=== PATIENT | female | born 1955 | race Caucasian/White ===

== ENCOUNTER 2020-08-25 15:11 | Emergency (ER) | payer OTHER, SELFPAY ==
[2020-08-25 16:02] VITALS: BP 111/67; PULSE 65; RESP 18; TEMP 36.7; O2SAT 100; BMI 20.9
--- NOTE | 2020-08-25 16:31 | ED.NAVMDI ---
HPI - Nausea/Vomiting/Diarrhea General Chief complaint: Nausea/Vomiting/Diarrhea Stated complaint: dirrhea Time Seen by Provider: 08/25/20 16:16 Source: patient Mode of arrival: ambulatory Limitations: no limitations History of Present Illness HPI Narrative: Patient comes to the emergency room complaining of diarrhea for 5 weeks. Patient states on July 12 she had a left foot surgery and put on antibiotics, and soon after she developed diarrhea. She told her testing machine operator Dr. López about this, she was given a prescription for oral vancomycin. Patient states that she continues having diarrhea, up to 5 bowel movements of watery diarrhea per day, no vomiting. Patient states all her symptoms are worse at night. Patient denies having any solid bowel movements for the last 5 weeks. Patient complaining of mild abdominal discomfort and occasional cramping, no pain. Patient states that she has been in touch with Dr. López, per patient, she was instructed to come to the emergency room for evaluation and to get admitted. Patient states that they need to repeat a colonoscopy. Patient had a colonoscopy approximately 6 months ago which was inconclusive due to cough is fecal material in the colon, then she was told that she needed a 2nd colonoscopy towards the the middle of August. MD elicited complaint: nausea and diarrhea Related Data Previous Rx's Medication Instructions Recorded vancomycin 125 mg capsule 125 mg PO QID 10 Days #40 cap 08/10/20 loperamide 1 mg/7.5 mL oral liquid 1 mg PO Q2-4H PRN #120 ml 08/15/20 loperamide 2 mg PO Q4H PRN #30 cap 08/25/20 Allergies Allergy/AdvReac Type Severity Reaction Status Date / Time sumatriptan [From IMITREX] Allergy Unknown MAKES Unverified 05/25/20 15:57 MIGRAINES WORSE Review of Systems Review of Systems: Constitutional : No Weight loss, No Fever, No Chills, No Night Sweats, No Fatigue, No Malaise ENT/Mouth : No Hearing loss, No Ear Pain, No Nasal Congestion, No Sinus Pain, No Hoarseness, No sore throat, No Rhinorrhea, No Swallowing Difficulty Eyes: No Eye Pain, No Swelling, No Redness, No Foreign Body, No Discharge, No Vision Changes Cardiovascular : No Chest Pain, No SOB, No Dyspnea on Exertion, No Orthopnea, No Edema, No Palpitations Respiratory : No Cough, No Sputum, No Wheezing, No Smoke Exposure, No Dyspnea Gastrointestinal : Complaining of mild nausea with no vomiting, 5 weeks of diarrhea No Constipation, No abdominal Pain other than occasional cramping, No Hematochezia, No Melena Genitourinary : no irregular bleeding, No Dysuria, No Urinary Frequency, No Hematuria, No Urinary Incontinence, No Urgency, No Flank Pain, No Urinary Flow Changes, No Hesitancy Musculoskeletal : No joint pain, No Myalgias, No Joint Swelling Skin : No Skin Lesions, No rash, healing surgery in left foot Neuro : No Weakness, No Numbness, No Paresthesias, No Loss of Consciousness, No Dizziness, No Headache Psych : No Anxiety/Panic, No Depression, No SI/HI/AH/VH, No Social Issues, Heme/Lymph: No Bruising, No Bleeding,No Lymphadenopathy Endocrine : No Polyuria, No Polydipsia, No Temperature Intolerance [facility] Past Medical History Medical History (Updated 08/25/20 @ 20:39 by Linh Padron MD) Borderline personality disorder Depression Diverticulitis Opiate abuse, continuous Surgical History (Updated 08/25/20 @ 16:36 by Linh Padron MD) H/O hemorrhoidectomy Status post left foot surgery Social History Social History Alcohol intake: never Smoking Status: Never smoker Use of substances other than those prescribed or required for medical reasons: No Advance Directives: No Advance Directives Information Provided: No Physical Exam Vital Signs: Vital Signs: Last Vital Signs Temp 97.9 F 08/25/20 20:16 Pulse 68 08/25/20 20:16 Resp 18 08/25/20 20:16 BP 131/58 L 08/25/20 20:16 Pulse Ox 98 08/25/20 20:16 Body Mass Index 20.9 Appearance: Alert. Oriented X3. No acute distress. Eyes: Pupils equal, round and reactive to light. ENT: Pharynx normal. Neck: Normal inspection. Neck supple. No lymph nodes noted. No crepitus CVS: Normal heart rate and rhythm. Pulses normal. Normal S1 and S2 Respiratory: No respiratory distress. Breath sounds normal. No Wheezing. No rales Abdomen: Soft and nontender. No rigidity. No distention. good BS x4 Skin: Skin warm and dry. Normal skin color. Normal skin turgor. Extremities: Left foot in [place] Neuro: Oriented X 3. No motor deficit. No sensory deficit. Moving all extermities. No slurred speech. Course Course Course Narrative: Patient has not had any bowel movements since she has been here and we were unable to collect stool samples for laboratory workup, patient not complaining of abdominal pain. I spoke with Dr. López regarding the patient and her labs, seems that the patient was sent here because the patient inform the gastroenterology office that she was having dizziness. Patient denies any symptoms of dizziness, lightheadedness. Patient's orthostatics were negative. Patient received 2 L of normal saline. Discussed with the patient to follow up with her PCP and testing machine operator on Friday. Dr. López recommends that the patient doubles her Imodium dose MDM - Nausea/Vomiting/Diarrhea Lab Data Result diagrams: 08/25/20 16:51 08/25/20 16:51 Labs: Lab Results 08/25/20 08/25/20 08/25/20 Range/Units 16:51 16:51 19:58 WBC 7.9 (4.8-10.8) X10*3/uL RBC 3.33 L (4.20-5.50) X10*6/uL Hgb 11.3 L (12.0-16.0) g/dl Hct 33.8 L (37-47) % MCV 101.5 H (80-98) fL MCH 33.9 H (27.0-33.0) pg MCHC 33.4 (31.0-35.0) g/dl RDW 11.8 (11.0-16.0) % Plt Count 207 (160-400) X10*3/uL MPV 9.5 (9.4-12.3) fL Immature Gran % (Auto) 0.3 (0.0-0.4) % Neut % (Auto) 57.3 (45-73) % Lymph % (Auto) 33.1 (20-40) % [place] % (Auto) 7.6 (2-11) % Eos % (Auto) 1.3 (0-4) % Baso % (Auto) 0.4 (0-2) % Lymph # (Auto) 2.6 (1.2-4.9) X10*3/uL [place] # (Auto) 0.6 (0.1-1.2) X10*3/uL Eos # (Auto) 0.1 (0.0-0.4) X10*3/uL Baso # (Auto) 0.0 (0.0-0.2) X10*3/uL Abs Immat Gran (auto) 0.02 (0.00-0.03) X10*3/uL Absolute Neuts (auto) 4.6 (2.0-8.3) X10*3/uL Absolute Nucleated RBC 0.000 (0.0-0.012) X10*3/uL Nucleated RBC % (auto) 0.0 (0.0-0.2) /100WBC Sodium 141 (135-145) mmol/L Potassium 4.4 (3.3-5.1) mmol/l Chloride 105 (96-108) mmol/L Carbon Dioxide 33 H (22-29) mmol/L Anion Gap 7 L (12-20) BUN 12 (9-16) mg/dL Creatinine 0.67 (0.5-1.4) mg/dL Estim Creat Clear Calc 81.0 Estimated GFR > 60 Random Glucose 93 (60-115) mg/dL Calcium 8.9 (8.4-10.2) mg/dL Total Bilirubin 0.2 (0.0-1.0) mg/dL Direct Bilirubin < 0.2 (0.0-0.5) mg/dL AST 14 (5-31) U/L ALT 6 (0-31) U/L Alkaline Phosphatase 51 (39-117) U/L Total Protein 5.4 L (6.5-8.0) g/dL Albumin 3.6 (3.5-5.0) g/dL Lipase 14 (8-78) U/L Urine Color YELLOW Urine Appearance CLEAR Urine pH 5.5 (5.0-8.0) Ur Specific [place] 1.025 (1.005-1.025) Urine Protein NEG (NEG-TRACE) MG/DL Urine Glucose (UA) NEG (NEG) MG/DL Urine Ketones NEG (NEG) MG/DL Urine Blood NEG (NEG) Urine Nitrite NEG (NEG) Ur Leukocyte Esterase NEG (NEG) Discharge Plan Discharge Clinical Impression: Diarrhea Qualifiers: Diarrhea type: unspecified type Qualified Code(s): R19.7 - Diarrhea, unspecified Patient Disposition: Home, Self-Care Instructions: Chronic Diarrhea (ED) Additional Instructions: Please follow-up with Dr. López on Friday. Please follow-up with your primary care physician tomorrow. If you have any worsening or new symptoms, please return to the emergency room or call 911 Prescriptions: New loperamide 2 mg capsule 2 mg PO Q4H PRN (Reason: loose stool) Qty: 30 RF: 0 No Action vancomycin 125 mg capsule 125 mg PO QID 10 Days Qty: 40 RF: 0 loperamide 1 mg/7.5 mL liquid 1 mg PO Q2-4H PRN (Reason: loose stool) Qty: 120 RF: 0
[2020-08-25] MEDS: 0.9 % Sodium Chloride 1,000 ML 999 ML IVCONT (16:51)
[2020-08-25 16:56] LABS: MANUAL DIFF FLAG NO
[2020-08-25 16:57] LABS: Basophils Percent Auto 0.4 % (0-2); Eosinophils Absolute Auto 0.1 X10*3/uL (0.0-0.4); Eosinophils Percent Auto 1.3 % (0-4); Hematocrit 33.8 % (37-47); Hemoglobin 11.3 g/dl (12.0-16.0); Imm Gran Abs Auto 0.02 X10*3/uL (0.00-0.03); Imm Gran Pct Auto 0.3 % (0.0-0.4); Lymphocytes Absolute Auto 2.6 X10*3/uL (1.2-4.9); Lymphocytes Percent Auto 33.1 % (20-40); Mean Corpuscular HGB Conc 33.4 g/dl (31.0-35.0); Mean Corpuscular Hemoglobin 33.9 pg (27.0-33.0); Mean Corpuscular Volume 101.5 fL (80-98); Mean Platelet Volume 9.5 fL (9.4-12.3); Monocytes Absolute Auto 0.6 X10*3/uL (0.1-1.2); Monocytes Percent Auto 7.6 % (2-11); Neutrophils Absolute Auto 4.6 X10*3/uL (2.0-8.3); Neutrophils Percent Auto 57.3 % (45-73); Platelet Count 207 X10*3/uL (160-400); Red Blood Count 3.33 X10*6/uL (4.20-5.50); Red Cell Distribution Width 11.8 % (11.0-16.0); White Blood Count 7.9 X10*3/uL (4.8-10.8)
[2020-08-25] MEDS: Morphine Sulfate Immed Release 15 MG TABLET PO (17:03)
[2020-08-25 17:29] LABS: Alanine Aminotransferase 6 U/L (0-31); Albumin Level 3.6 g/dL (3.5-5.0); Alkaline Phosphatase 51 U/L (39-117); Anion Gap 7 (12-20); Aspartate Amino Transferase 14 U/L (5-31); Bilirubin Direct < 0.2 mg/dL (0.0-0.5); Bilirubin Total 0.2 mg/dL (0.0-1.0); Blood Urea Nitrogen 12 mg/dL (9-16); Calcium 8.9 mg/dL (8.4-10.2); Carbon Dioxide 33 mmol/L (22-29); Chloride 105 mmol/L (96-108); Estimated Glomerular Filt Rate > 60; Glucose Random 93 mg/dL (60-115); Lipase 14 U/L (8-78); Potassium 4.4 mmol/l (3.3-5.1); Sodium 141 mmol/L (135-145); Total Protein 5.4 g/dL (6.5-8.0)
[2020-08-25] MEDS: 0.9 % Sodium Chloride 1,000 ML 999 ML IV (18:35)
[2020-08-25 20:09] VITALS: BP 131/58; PULSE 67
[2020-08-25 20:10] VITALS: BP 141/71; PULSE 80
[2020-08-25 20:11] LABS: Glucose Urine UA NEG (NEG); Leukocyte Esterase Urine NEG (NEG); Nitrite Urine NEG (NEG); PH 5.5 (5.0-8.0); Specific Gravity - Urine 1.025 (1.005-1.025); Urine Blood NEG (NEG); Urine Ketones NEG (NEG); Urine Protein NEG (NEG-TRACE)
[2020-08-25 20:14] LABS: Appearance Urine CLEAR; Color Urine YELLOW
[2020-08-25 20:16] VITALS: BP 131/58; PULSE 68; RESP 18; TEMP 36.6; O2SAT 98
--- NOTE | 2020-08-25 20:36 | PC.NURSE ---
PT ABLE TO AMBULATED TO BATHROOM WITH LIMPING GAIT, STS HAS BEEN USING WALKER AT HOME. PT CONCERNED ABOUT ONGOING DIARRHEA , BUT WHEN THIS RN ASKED IF PATIENT ABLE TO PROVIDE STOOL SAMPLE FOR ANALYSIS SHE STATED WELL I JUST ATE SO I WONT BE ABLE TO HAVE A BM UNTIL TOMORROW NOW , PROVIDER AWARE OF PT STATEMENTS.
== END 2020-08-25 21:06 | disposition home or self-care (01) ==
PROVIDERS: Emergency Provider Emergency Medicine; PCP Family Medicine
DX: R19.7 Diarrhea, unspecified (principal); F11.10 Opioid abuse, uncomplicated; F60.3 Borderline personality disorder
CPT/HCPCS: 36415; 80048; 80076; 81003; 83690; 85025; 96360; 96361; 99284

== ENCOUNTER 2020-08-31 08:25 | Day surgery (SDC) | payer OTHER, SELFPAY ==
--- NOTE | 2020-08-30 08:31 | P.CONAN_ITS ---
Documented by User: Edwige Elyse 08/30/20 08:35 HPI - Anesthesia Eval Consult details Narrative: 64yo F for Upper Endoscopy and Colonoscopy [facility] Past Medical History Medical History Borderline personality disorder Depression Diverticulitis Opiate abuse, continuous Surgical History Surgical History H/O hemorrhoidectomy Status post left foot surgery Social History Social History Alcohol intake: never Smoking Status: Current every day smoker Second Hand Smoke Exposure: No Use of substances other than those prescribed or required for medical reasons: No Advance Directives: No Advance Directives Information Provided: No Advance Directives on File: No Meds Allergies Allergy/AdvReac Type Severity Reaction Status Date / Time sumatriptan [From IMITREX] Allergy Unknown MAKES Unverified 05/25/20 15:57 MIGRAINES WORSE Exam Exam Date and Time: August 30, 2020830 Pertinent Lab Results Pertinent Lab Results: Laboratory Tests 08/25/20 08/25/20 16:51 16:51 WBC 7.9 Hgb 11.3 L Hct 33.8 L Plt Count 207 Sodium 141 Potassium 4.4 Chloride 105 Carbon Dioxide 33 H BUN 12 Creatinine 0.67 Assessment and Plan Assessment Anesthesia Assessment: Chart Reviewed Documented by User: Andrey Gaston MD 08/31/20 08:53 [facility] Past Medical History Medical History Borderline personality disorder Depression Diverticulitis Opiate abuse, continuous Surgical History Surgical History H/O hemorrhoidectomy Status post left foot surgery Social History Social History Alcohol intake: never Smoking Status: Current every day smoker Second Hand Smoke Exposure: No Use of substances other than those prescribed or required for medical reasons: No Advance Directives: No Advance Directives Information Provided: No Advance Directives on File: No Meds Allergies Allergy/AdvReac Type Severity Reaction Status Date / Time sumatriptan [From IMITREX] Allergy Unknown MAKES Unverified 05/25/20 15:57 MIGRAINES WORSE Assessment and Plan Assessment Anesthesia Assessment: Anesthesia Plan Discussed, Smoking Cess. Discussed and Chart Reviewed Final Anesthetic Review NPO: Yes ASA Class: II Final Preanesthetic Review: No Changes in Pt Med Stat, Meds/Allgs Chart Reviewed, Consent Obtained/Reviewed and Anes Risks/Benef Reviewed Patient Risk: Intermediate Procedure Risk: Low Anesthetic Plan Anesthetic Plan: MAC: Disposition: Standard PACU
[2020-08-30 09:00] VITALS: BMI 20.5
[2020-08-31 08:33] VITALS: BP 133/55; PULSE 89; RESP 16; TEMP 36.1; O2SAT 100
[2020-08-31] MEDS: Lactated Ringers 1,000 ML 100 ML IVCONT (09:10)
--- NOTE | 2020-08-31 09:41 | MHC.SHP ---
Pre-Procedural Eval Section B Chief Complaint: nausea,diarrhea Relevant Family History (Specify if Yes): No Relevant Social History: Tobacco Use Present Medications: see Short Stay Collaborative assessment Medical History: Significant History (Borderline personality disorder Depression Diverticulitis Opiate abuse, continuous) History of Previous Operations: Relevant previous surgery/procedure and date(s) (foot surgery) Allergies: Allergies Allergy/AdvReac Type Severity Reaction Status Date / Time sumatriptan [From IMITREX] Allergy Unknown MAKES Verified 08/31/20 08:53 MIGRAINES WORSE Review of Systems Sugical H&P ROS: Negative: Constitution, Cardiovascular, Respiratory, Neurological, Psychiatric, Hem-Onc, Allergic/Immunologic, Gastrointestinal, Genitourinary, Integumentary, Endocrine and Eyes/Ears/Nose/Throat and Yes, Specify: Musculoskeletal (left foot surgery) Exam Surgical H&P Exam: Normal: HEENT, Normal: Heart, Normal: Lungs, Normal: Abdomen, Normal: Skin and Normal: Neurological and Significant Findings: Extremities (left foot deformed and red) Plan Diagnosis/Plan: Unchanged I have reviewed the history and physical and performed a pertinent physical examination on my patient. No changes have occurred unless specified.
--- NOTE | 2020-08-31 09:56 | HO.POSTANES ---
Post Anesthesia Evaluation Post Anesthesia Evaluation Vital Signs: Vital Signs Temp Pulse Resp BP Pulse Ox 08/31/20 08:33 96.9 F 89 16 133/55 L 100 Anesthesia: Monitored Mental Status: Awake Pain Control: Satisfactory Nausea/Vomiting: None Hydration: Adequate Anesthesia-Related Issues: No Anes. Related Issues
--- NOTE | 2020-08-31 09:58 | PM.OP ---
Brief Operative Note Date of Service: 08/31/20 Post-op diagnosis: same Procedure: Operative Information Procedure Description: EGD, Colonoscopy FLEXIBLE TRANSORAL UPPER GASTROINTESTINAL ENDOSCOPY AND COLONOSCOPY PROCEDURE NOTE UPPER ENDOSCOPY Consent: Indications for the procedure and potential complications of bleeding, perforation, reaction to medications and missed diagnosis were discussed with the patient and informed consent was obtained. Instrument: Olympus GIF H 190 J mid size upper endoscope Monitoring: Vital signs and clinical assessment, continuous EKG monitoring, Pulse oximetry, Carbon Dioxide monitoring and blood pressure monitoring were done throughout the procedure. Procedure: The patient was placed in the left lateral decubitis position and pre-procedure medications were administered and a bite block was placed. The endoscope was inserted into the mouth and advanced under direct vision to the third part of duodenum. A careful inspection was made as the upper endoscope was withdrawn including a retroflexed examination of the proximal stomach; Findings and interventions are described below. Findings: Larynx:normal Esophagus: GE junction at 40 cm, diaphragm hiatus at 40 cm, normal mucosa Stomach: hemorrhagic gastritis, erythema and adherents flecks of blood in antrum . Biopsies were obtained. Grade 2 flap valve on retroflexed examination of the cardia. Duodenum: Moderate bulbar duodenitis, bx taken Intervention: Biopsies as noted above COLONOSCOPY Instrument: Olympus variable stiffness pediatric scope 190L Colonoscopy Monitoring: Vital signs and clinical assessment, continuous EKG monitoring, Pulse oximetry, Carbon Dioxide monitoring and blood pressure monitoring were done throughout the procedure. Colon withdrawal time was 9 minutes. Procedure: The patient was placed in the left lateral decubitis position and pre-procedure medications were administered. After a digital rectal examination of the ano-rectum, the video colonoscope was inserted into the rectum and advanced through the colon to the cecum/TI. The colonoscope was slowly withdrawn in a retrograde panoramic fashion and the colon mucosa was carefully examined including a retroflexed view of the rectum. Findings and interventions are described below. Procedure Difficulty:easy Findings: Terminal Ileum-normal bx taken random colon bx taken Cecum:normal Ascending Colon: normal Transverse Colon -normal Descending Colon:normal Sigmoid Colon: normal Rectum: Retroflexion with small internal hemorrhoids, grade I Anorectum - normal Colon preparation: [place] Bowel Preparation Scale Right colon; 2 Transverse colon: 3 Left colon; 2 (0 = Unprepared colon segment with mucosa not seen due to solid stool that cannot be cleared. 1 = Portion of mucosa of the colon segment seen, but other areas of the colon segment not well seen due to staining, residual stool and/or opaque liquid. 2 = Minor amount of residual staining, small fragments of stool and/or opaque liquid, but mucosa of colon segment seen well. 3 = Entire mucosa of colon segment seen well with no residual staining, small fragments of stool or opaque liquid) Impression and Post Procedure Diagnosis: Endoscopy Findings: gastritis duodenitis Colonoscopy Findings: internal hemorrhoids Plan: Await Pathology results Repeat Colonoscopy in 7-10 years or earlier if clinically indicated High fiber diet leaflet avoid straining at stool, epsom salts and sitz bath, anusol supps or cream prn check nsaid hx check if taking PPI-if not prescribe can take imdoium BID as does help her Above findings were reviewed with the patient and relevant handouts were provided if indicated. Surgeon: Marek López MD Anesthesia: MAC Estimated blood loss (mL): 0 Condition: stable Disposition: PACU
[2020-08-31 10:30] VITALS: BP 105/45; PULSE 64; RESP 16; TEMP 36.4; O2SAT 100
[2020-08-31 10:45] VITALS: BP 106/47; PULSE 75; RESP 17; TEMP 36.4; O2SAT 98
== END 2020-08-31 11:29 | disposition home or self-care (01) ==
PROVIDERS: PCP Family Medicine; Visit Provider Internal Medicine Gastroenterology
PROC: (CPT 45380; principal; 2020-08-31 09:50)
DX: R19.7 Diarrhea, unspecified (principal); K64.0 First degree hemorrhoids; K29.51 Unspecified chronic gastritis with bleeding; K29.80 Duodenitis without bleeding; K44.9 Diaphragmatic hernia without obstruction or gangrene; Z87.19 Personal history of other diseases of the digestive system; F11.10 Opioid abuse, uncomplicated; F32.9 Major depressive disorder, single episode, unspecified; F60.3 Borderline personality disorder; Z79.899 Other long term (current) drug therapy; Z88.8 Allergy status to other drugs, medicaments and biological substances
CPT/HCPCS: 45380; 43239; 88305; 88342

== ENCOUNTER → 2020-09-29 08:26 | Outpatient (BNVA) | payer OTHER, SELFPAY | PROVIDERS: Visit Provider Internal Medicine Gastroenterology ==

== ENCOUNTER 2020-10-05 15:09 | Inpatient (IN) | payer OTHER, SELFPAY ==
[2020-10-05] VITALS (8 sets, daily range): BP systolic 99–122; BP diastolic 41–54; PULSE 55–63; RESP 18–20; TEMP 36.5–37.1; O2SAT 97–100; BMI 19.6
[2020-10-05 16:09] LABS: MANUAL DIFF FLAG NO
[2020-10-05 16:15] LABS: Basophils Percent Auto 0.3 % (0-2); Eosinophils Percent Auto 0.4 % (0-4); Hematocrit 33.9 % (37-47); Hemoglobin 11.2 g/dl (12.0-16.0); Imm Gran Abs Auto 0.04 X10*3/uL (0.00-0.03); Imm Gran Pct Auto 0.6 % (0.0-0.4); Lymphocytes Absolute Auto 2.3 X10*3/uL (1.2-4.9); Lymphocytes Percent Auto 31.4 % (20-40); Mean Corpuscular Hemoglobin 32.9 pg (27.0-33.0); Mean Corpuscular Volume 99.7 fL (80-98); Mean Platelet Volume 9.8 fL (9.4-12.3); Monocytes Absolute Auto 0.6 X10*3/uL (0.1-1.2); Monocytes Percent Auto 8.3 % (2-11); Neutrophils Absolute Auto 4.3 X10*3/uL (2.0-8.3); Platelet Count 222 X10*3/uL (160-400); Red Cell Distribution Width 11.7 % (11.0-16.0); White Blood Count 7.3 X10*3/uL (4.8-10.8)
[2020-10-05 16:43] LABS: Alanine Aminotransferase 9 U/L (0-31); Albumin Level 3.8 g/dL (3.5-5.0); Alkaline Phosphatase 76 U/L (39-117); Anion Gap 13 (12-20); Aspartate Amino Transferase 22 U/L (5-31); Bilirubin Total 0.5 mg/dL (0.0-1.0); Blood Urea Nitrogen 20 mg/dL (9-16); Calcium 9.1 mg/dL (8.4-10.2); Carbon Dioxide 27 mmol/L (22-29); Chloride 102 mmol/L (96-108); Creatinine Clr Calc Pharmacy 55.8; Estimated Glomerular Filt Rate > 60; Glucose Random 103 mg/dL (60-115); Lipase 11 U/L (8-78); Potassium 3.9 mmol/l (3.3-5.1); Sodium 138 mmol/L (135-145); Total Protein 6.1 g/dL (6.5-8.0)
--- NOTE | 2020-10-05 17:24 | ED.ABDPAIN ---
HPI - Abdominal Pain General Chief Complaint: Abdominal Pain Stated Complaint: Abdominal pain Time Seen by Provider: 10/05/20 17:14 Source: patient Mode of arrival: ambulatory Limitations: no limitations History of Present Illness HPI narrative: 64-year-old female reports she has history of chronic recurrent back pain has had bone scraping for this and PT also in July left lower extremity foot surgery and bunion surgery who presents with complaint of 6 days of right lower quadrant pain now radiates slightly to the right flank and was advised by her primary care doctor to come in for evaluation. Reports mild nausea but no vomiting or diarrhea. No symptoms. No recent travel or sick contacts. No upper respiratory symptoms. States she has a couple water this morning for breakfast and has not had any solid food since. She reports to me I think I got appendicitis MD elicited complaint: abdominal pain and flank pain Pertinent past history: none Location: none Quality: stabbing and aching Radiation: none Migration to: RLQ Relieving factors: nothing Associated symptoms: denies other symptoms Related Data Home Medications Medication Instructions Recorded Confirmed buprenorphine HCl [Belbuca] 600 mcg BUCCAL Q12H 08/31/20 08/31/20 ymocimbuva-mauifvywagsvi-mlsx tab 08/31/20 [Fioricet] celecoxib 1 cap PO DAILY 08/31/20 08/31/20 morphine 1 tab PO TID PRN 08/31/20 08/31/20 prochlorperazine maleate 25 mg PO TID PRN 08/31/20 08/31/20 [Compazine] rosuvastatin 1 tab PO DAILY 08/31/20 08/31/20 topiramate [Topamax] 100 mg PO TID 08/31/20 08/31/20 trazodone 300 mg PO BEDTIME 08/31/20 08/31/20 zolmitriptan [Zomig] 10 mg PO TID 08/31/20 08/31/20 baclofen 20 mg tablet 20 mg PO TID 09/29/20 cholecalciferol (vitamin D3) 125 125 mcg PO DAILY 09/29/20 mcg (5,000 unit) capsule lidocaine 5 % topical ointment TOPICAL 09/29/20 lidocaine 5 % topical patch 3 patch TOPICAL DAILY 09/29/20 lorazepam 1 mg tablet mg PO 09/29/20 prochlorperazine 25 mg rectal 25 mg TX BID PRN 09/29/20 suppository sennosides 8.6 mg tablet 8.6 mg PO TID 09/29/20 Previous Rx's Medication Instructions Recorded vancomycin 125 mg capsule 125 mg PO QID 10 Days #40 cap 08/10/20 loperamide 1 mg/7.5 mL oral liquid 1 mg PO Q2-4H PRN #120 ml 08/15/20 loperamide 2 mg PO Q4H PRN #30 cap 08/25/20 bisacodyl 5 mg tablet,delayed 10 mg PO ONCE 1 Days #2 tab 08/30/20 release loperamide [Imodium A-D] 2 mg PO BID #60 cap 08/31/20 pantoprazole 40 mg PO DAILY #30 tab 08/31/20 ondansetron 4 mg disintegrating 4 mg PO Q8H PRN #30 tab 09/06/20 tablet polyethylene glycol 3350 17 17 g PO BID #238 g 09/06/20 gram/dose oral powder sucralfate 100 mg/mL oral 10 ml PO BID #420 ml 09/14/20 suspension sulfamethoxazole 800 1 tab PO Q12H #14 tab 09/29/20 mg-trimethoprim 160 mg tablet Allergies Allergy/AdvReac Type Severity Reaction Status Date / Time sumatriptan [From IMITREX] Allergy Unknown MAKES Verified 08/31/20 08:53 MIGRAINES WORSE Review of Systems Review of Systems Constitutional: No Weight loss, No Fever, No Chills, No Night Sweats, No Fatigue, No Malaise ENT/Mouth: No Hearing loss, No Ear Pain, No Nasal Congestion, No Sinus Pain, No Hoarseness, No sore throat, No Rhinorrhea, No Swallowing Difficulty Eyes: No Eye Pain, No Swelling, No Redness, No Foreign Body, No Discharge, No Vision Changes Cardiovascular: No Chest Pain, No SOB, No Dyspnea on Exertion, No Orthopnea, No Edema, No Palpitations Respiratory: No Cough, No Sputum, No Wheezing, No Smoke Exposure, No Dyspnea Gastrointestinal: As noted in HPI, No Hematochezia, No Melena Genitourinary: no irregular bleeding, No Dysuria, No Urinary Frequency, No Hematuria, No Urinary Incontinence, No Urgency, No Flank Pain Musculoskeletal: No joint pain, No Myalgias, No Joint Swelling Skin: No Skin Lesions, No rash Neuro: No Weakness, No Numbness, No Paresthesias, No Loss of Consciousness, No Dizziness, No Headache Psych: No Social Issues Heme/Lymph: No Bruising, No Bleeding,No Lymphadenopathy Endocrine: No Polyuria, No Polydipsia, No Temperature Intolerance Yes all other systems are reviewed and are negative Physical Exam Vital Signs: Vital Signs: Last Vital Signs Temp 98.7 F 10/05/20 19:36 Pulse 60 10/05/20 19:48 Resp 18 10/05/20 19:48 BP 122/54 L 10/05/20 19:48 Pulse Ox 98 10/05/20 19:48 Body Mass Index 19.6 Reviewed Const: General: cooperative and healthy appearing; No acute distress or intoxicated appearing Nutritional Appearance: average body habitus Orientation/consciousness: patient oriented x3 HENMT: Head: Yes normal to inspection Ears: hearing grossly normal bilaterally Eyes: General: appearance normal, both eyes and all related structures Visual Don: normal visual don by confrontation Neck: Neck: Yes normal visual inspection, No positive Brudzinski's sign, No positive Kernig's sign and No tender Thyroid: Thyroid normal Chest: Chest palpation & inspection: normal inspection of the chest Resp: Effort & Inspection: normal respiratory effort Auscultation: clear to auscultation bilaterally Cardio: Jugular venous distension: no JVD Rhythm: regular rhythm Heart sounds: S1 normal heart sound present and S2 normal heart sound present GI: Inspection: Yes normal to inspection Palpation (GI): Soft to palpation, Tenderness to palpation present (GI) in the RLQ and periumbilically, no guarding and not rigid Percussion: Yes normal to percussion Auscultation: normal bowel sounds : General: Yes no CVA tenderness Back/Spine/Pelvis: Back: no CVA tenderness Skin: General skin exam: no rashes or lesions noted Neuro: General: patient oriented x3 Extrem: General: Yes normal to inspection Course Course Course Narrative: Pain well managed after 1 dose of morphine. Nontoxic appearing. Hemodynamically stable. CT scan findings consistent with acute appendicitis without evidence of abscess or perforation. No leukocytosis given prophylactic antibiotics case discussed with General surgery Dr. Sandoval who will admit to service for possible intervention in the morning. NPO after midnight. Preop EKG, coags type and screen done. Patient is stable at this time. Reevaluation(s) Reevaluation #1: [id number]: Call from [facility] at this time Dr. colon with the abdominal pelvis CT read findings consistent with acute appendicitis without abscess or rupture. Patient resting comfortably after dose of morphine and Zofran. IV fluids are infusing. Empiric antibiotics ordered. Call placed to general surgery Dr. Sandoval MDM - Abdominal Pain Differential Diagnosis Differential diagnosis: Likely abdominal pain, acute appendicitis and calculus of kidney; Unlikely aortic dissection, bowel perforation, constipation, diverticulitis, endometriosis, gastroenteritis, gastritis, mesenteric ischemia, ovarian cyst, pancreatitis, peptic ulcer disease, renal colic and small bowel obstruction Medical Records Attestation: I reviewed the patient's medical records. Lab Data Attestation: I reviewed the patient's lab results. Result diagrams: 10/05/20 16:05 10/05/20 16:05 Labs: Lab Results 10/05/20 10/05/20 10/05/20 Range/Units 16:05 16:05 16:05 WBC 7.3 (4.8-10.8) X10*3/uL RBC 3.40 L (4.20-5.50) X10*6/uL Hgb 11.2 L (12.0-16.0) g/dl Hct 33.9 L (37-47) % MCV 99.7 H (80-98) fL MCH 32.9 (27.0-33.0) pg MCHC 33.0 (31.0-35.0) g/dl RDW 11.7 (11.0-16.0) % Plt Count 222 (160-400) X10*3/uL MPV 9.8 (9.4-12.3) fL Immature Gran % (Auto) 0.6 H (0.0-0.4) % Neut % (Auto) 59.0 (45-73) % Lymph % (Auto) 31.4 (20-40) % [place] % (Auto) 8.3 (2-11) % Eos % (Auto) 0.4 (0-4) % Baso % (Auto) 0.3 (0-2) % Lymph # (Auto) 2.3 (1.2-4.9) X10*3/uL [place] # (Auto) 0.6 (0.1-1.2) X10*3/uL Eos # (Auto) 0.0 (0.0-0.4) X10*3/uL Baso # (Auto) 0.0 (0.0-0.2) X10*3/uL Abs Immat Gran (auto) 0.04 H (0.00-0.03) X10*3/uL Absolute Neuts (auto) 4.3 (2.0-8.3) X10*3/uL Absolute Nucleated RBC 0.000 (0.0-0.012) X10*3/uL Nucleated RBC % (auto) 0.0 (0.0-0.2) /100WBC PT (10.8-13.0) SEC INR (0.9-1.1) APTT (24.1-38.0) SEC Hold Blue Top SEE NOTE Sodium 138 (135-145) mmol/L Potassium 3.9 (3.3-5.1) mmol/l Chloride 102 (96-108) mmol/L Carbon Dioxide 27 (22-29) mmol/L Anion Gap 13 (12-20) BUN 20 H D (9-16) mg/dL Creatinine 0.83 (0.5-1.4) mg/dL Estim Creat Clear Calc 55.8 Estimated GFR > 60 Random Glucose 103 (60-115) mg/dL Calcium 9.1 (8.4-10.2) mg/dL Total Bilirubin 0.5 (0.0-1.0) mg/dL AST 22 D (5-31) U/L ALT 9 (0-31) U/L Alkaline Phosphatase 76 D (39-117) U/L Total Protein 6.1 L (6.5-8.0) g/dL Albumin 3.8 (3.5-5.0) g/dL Lipase 11 (8-78) U/L Urine Color Urine Appearance Urine pH (5.0-8.0) Ur Specific [place] (1.005-1.025) Urine Protein (NEG-TRACE) MG/DL Urine Glucose (UA) (NEG) MG/DL Urine Ketones (NEG) MG/DL Urine Blood (NEG) Urine Nitrite (NEG) Ur Leukocyte Esterase (NEG) Blood Type Antibody Screen 10/05/20 10/05/20 10/05/20 Range/Units 20:03 20:03 20:09 WBC (4.8-10.8) X10*3/uL RBC (4.20-5.50) X10*6/uL Hgb (12.0-16.0) g/dl Hct (37-47) % MCV (80-98) fL MCH (27.0-33.0) pg MCHC (31.0-35.0) g/dl RDW (11.0-16.0) % Plt Count (160-400) X10*3/uL MPV (9.4-12.3) fL Immature Gran % (Auto) (0.0-0.4) % Neut % (Auto) (45-73) % Lymph % (Auto) (20-40) % [place] % (Auto) (2-11) % Eos % (Auto) (0-4) % Baso % (Auto) (0-2) % Lymph # (Auto) (1.2-4.9) X10*3/uL [place] # (Auto) (0.1-1.2) X10*3/uL Eos # (Auto) (0.0-0.4) X10*3/uL Baso # (Auto) (0.0-0.2) X10*3/uL Abs Immat Gran (auto) (0.00-0.03) X10*3/uL Absolute Neuts (auto) (2.0-8.3) X10*3/uL Absolute Nucleated RBC (0.0-0.012) X10*3/uL Nucleated RBC % (auto) (0.0-0.2) /100WBC PT 12.3 (10.8-13.0) SEC INR 1.0 (0.9-1.1) APTT 36.3 (24.1-38.0) SEC Hold Blue Top Sodium (135-145) mmol/L Potassium (3.3-5.1) mmol/l Chloride (96-108) mmol/L Carbon Dioxide (22-29) mmol/L Anion Gap (12-20) BUN (9-16) mg/dL Creatinine (0.5-1.4) mg/dL Estim Creat Clear Calc Estimated GFR Random Glucose (60-115) mg/dL Calcium (8.4-10.2) mg/dL Total Bilirubin (0.0-1.0) mg/dL AST (5-31) U/L ALT (0-31) U/L Alkaline Phosphatase (39-117) U/L Total Protein (6.5-8.0) g/dL Albumin (3.5-5.0) g/dL Lipase (8-78) U/L Urine Color YELLOW Urine Appearance CLEAR Urine pH 7.0 (5.0-8.0) Ur Specific [place] 1.010 (1.005-1.025) Urine Protein NEG (NEG-TRACE) MG/DL Urine Glucose (UA) NEG (NEG) MG/DL Urine Ketones NEG (NEG) MG/DL Urine Blood NEG (NEG) Urine Nitrite NEG (NEG) Ur Leukocyte Esterase NEG (NEG) Blood Type A Positive Antibody Screen NEGATIVE Imaging Data Abdomen/pelvis: Radiologist's impression: [address] [id number] Scan ReportSigned Patient: Yo MarshMR#: [id number]: 8Acct:[id number]/Sex: 64 / FADM Date: 10/05/20Loc: [address] Dr: Ordering Physician: Constantin Boyd NP Date of Service: 10/05/20 Procedure(s): CT abdomen pelvis w con Accession Number(s): [id number] cc: Constantin Boyd NP~ EXAMINATION: CT ABDOMEN AND PELVIS WITH CONTRAST CLINICAL INFORMATION: Right lower quadrant pain COMPARISON: None TECHNIQUE: Multidetector volumetric images were obtained from the superior aspect of the liver through the pubic symphysis following administration 85 mL of Omnipaque 350 intravenous contrast. Sagittal and coronal reformatted images were obtained on the technologist's workstation. Oral contrast: No This CT examination was performed using dose optimization techniques as appropriate, variously including the following: *Automated exposure control *Adjustment of mA and/or kV according to patient size (this includes techniques or standardized protocols for targeted exams where dose is matched to indication/reason for exam; i.e. extremities or head) *Use of iterative reconstruction technique DLP: 407 mGy-cm FINDINGS: LUNG BASES: The visualized lung bases are unremarkable. LIVER, GALLBLADDER, AND BILIARY TREE: The liver is normal in size, shape, and attenuation. No focal hepatic lesion or biliary ductal dilatation is present. The gallbladder demonstrates no evidence of radiopaque gallstones or obvious pericholecystic inflammatory changes. The gallbladder wall appears minimally thickened. PANCREAS: Unremarkable. SPLEEN: Unremarkable. ADRENAL GLANDS: Unremarkable. KIDNEYS AND URETERS: The kidneys are normal in size, shape, and attenuation. Some tiny cysts are noted bilaterally. No worrisome renal masses are seen. No hydronephrosis, hydroureter, or calculi seen. No perinephric stranding. BLADDER: Unremarkable. GASTROINTESTINAL TRACT: The appendix is markedly enlarged and contains at least 2 appendicoliths the largest measuring 9 mm in size. Inflammatory changes are present around the appendix is well. All of these findings are consistent with acute appendicitis. No extraluminal air is seen and no periappendiceal drainable fluid collection is seen. The small and large bowel are unremarkable. ABDOMINAL WALL: No significant hernia is appreciated. LYMPH NODES: Normal. VASCULAR: Unremarkable. PELVIC VISCERA: Status post hysterectomy. An abnormal adnexal mass is not seen. OSSEOUS STRUCTURES: Unremarkable. CT/CT abdomen pelvis w con IMPRESSION: Acute uncomplicated appendicitis. No extraluminal air or abscess is seen. At least 2 large appendicoliths are present. This critical result was discussed with Constantin Boyd MD@7:08pm and it was ascertained that the content and urgency of the report was understood at the time of direct communication. Dictated By:MIYA LAMBERT MDSigned By:<Electronically signed by MIYA LAMBERT MD in OV>10/05/203 DD/ 1801TD/TT: Scrum Product Owner: ECG Data Interpretation: Sinus bradycardia Otherwise normal ECG When compared with ECG of 01-MAR-2020 14:19, No significant change was found Discharge Plan Discharge Clinical Impression: Acute appendicitis Patient Disposition: Admitted As Inpatient Prescriptions: No Action vancomycin 125 mg capsule 125 mg PO QID 10 Days Qty: 40 RF: 0 loperamide 1 mg/7.5 mL liquid 1 mg PO Q2-4H PRN (Reason: loose stool) Qty: 120 RF: 0 bisacodyl [Dulcolax (bisacodyl)] 5 mg tablet,delayed release (DR/EC) 10 mg PO ONCE 1 Days Qty: 2 RF: 0 ondansetron 4 mg tablet,disintegrating 4 mg PO Q8H PRN (Reason: nausea and vomiting) Qty: 30 RF: 0 polyethylene glycol 3350 [Miralax] 17 gram/dose powder 17 g PO BID Qty: 238 RF: 3 sucralfate 100 mg/mL suspension 10 ml PO BID Qty: 420 RF: 0 loperamide 2 mg capsule 2 mg PO Q4H PRN (Reason: loose stool) Qty: 30 RF: 0 zolmitriptan [Zomig] 5 mg Tablet 10 mg PO TID RF: 0 tgpubiheib-meixsqmmvjznm-evdr [Fioricet] 50-325-40 mg Tablet RF: 0 trazodone 300 mg Tablet 300 mg PO BEDTIME RF: 0 Belbuca 600 mcg Film 600 mcg BUCCAL Q12H RF: 0 topiramate [Topamax] 100 mg Tablet 100 mg PO TID RF: 0 celecoxib 200 mg capsule 1 cap PO DAILY RF: 0 prochlorperazine maleate [Compazine] 5 mg Tablet 25 mg PO TID PRN (Reason: Headache) RF: 0 morphine 15 mg tablet 1 tab PO TID PRN (Reason: Pain, Severe) RF: 0 rosuvastatin 40 mg tablet 1 tab PO DAILY RF: 0 pantoprazole 40 mg tablet,delayed release (DR/EC) 40 mg PO DAILY Qty: 30 RF: 2 loperamide [Imodium A-D] 2 mg capsule 2 mg PO BID Qty: 60 RF: 0 sulfamethoxazole-trimethoprim [Bactrim DS] 800-160 mg tablet 1 tab PO Q12H Qty: 14 RF: 0 PMFSH Past Medical History Medical History Borderline personality disorder Depression Diverticulitis Opiate abuse, continuous Surgical History H/O hemorrhoidectomy Status post left foot surgery Family History Family History (Updated 09/29/20 @ 08:32 by Elmer Swann) Mother Heart disease Father Heart disease Social History Social History (Updated 09/29/20 @ 08:31 by Elmer Swann) Alcohol intake: never Smoking Status: Current every day smoker Cigarettes Per Day: 4 Second Hand Smoke Exposure: No Advance Directives: No Advance Directives Information Provided: Yes
--- NOTE | 2020-10-05 18:01 | CT_ITS ---
EXAMINATION: CT ABDOMEN AND PELVIS WITH CONTRAST CLINICAL INFORMATION: Right lower quadrant pain COMPARISON: None TECHNIQUE: Multidetector volumetric images were obtained from the superior aspect of the liver through the pubic symphysis following administration 85 mL of Omnipaque 350 intravenous contrast. Sagittal and coronal reformatted images were obtained on the technologist's workstation. Oral contrast: No This CT examination was performed using dose optimization techniques as appropriate, variously including the following: *Automated exposure control *Adjustment of mA and/or kV according to patient size (this includes techniques or standardized protocols for targeted exams where dose is matched to indication/reason for exam; i.e. extremities or head) *Use of iterative reconstruction technique DLP: 407 mGy-cm FINDINGS: LUNG BASES: The visualized lung bases are unremarkable. LIVER, GALLBLADDER, AND BILIARY TREE: The liver is normal in size, shape, and attenuation. No focal hepatic lesion or biliary ductal dilatation is present. The gallbladder demonstrates no evidence of radiopaque gallstones or obvious pericholecystic inflammatory changes. The gallbladder wall appears minimally thickened. PANCREAS: Unremarkable. SPLEEN: Unremarkable. ADRENAL GLANDS: Unremarkable. KIDNEYS AND URETERS: The kidneys are normal in size, shape, and attenuation. Some tiny cysts are noted bilaterally. No worrisome renal masses are seen. No hydronephrosis, hydroureter, or calculi seen. No perinephric stranding. BLADDER: Unremarkable. GASTROINTESTINAL TRACT: The appendix is markedly enlarged and contains at least 2 appendicoliths the largest measuring 9 mm in size. Inflammatory changes are present around the appendix is well. All of these findings are consistent with acute appendicitis. No extraluminal air is seen and no periappendiceal drainable fluid collection is seen. The small and large bowel are unremarkable. ABDOMINAL WALL: No significant hernia is appreciated. LYMPH NODES: Normal. VASCULAR: Unremarkable. PELVIC VISCERA: Status post hysterectomy. An abnormal adnexal mass is not seen. OSSEOUS STRUCTURES: Unremarkable. CT/CT abdomen pelvis w con IMPRESSION: Acute uncomplicated appendicitis. No extraluminal air or abscess is seen. At least 2 large appendicoliths are present. This critical result was discussed with Constantin Boyd MD@7:08pm and it was ascertained that the content and urgency of the report was understood at the time of direct communication.
[2020-10-05] MEDS: iohexoL 350 MG/ML 100 ML INFUS..BTL IV (18:43)
[2020-10-05] MEDS: ondansetron HCL 4 MG/2 ML VIAL IVPUSH (18:48)
[2020-10-05] MEDS: Morphine Sulfate 4 MG/ML CARTRIDGE IVPUSH (18:49)
--- NOTE | 2020-10-05 19:11 | ECG_ITS ---
Test Reason : ABDOM PAIN Blood Pressure : / mmHG Vent. Rate : 058 BPM Atrial Rate : 058 BPM P-R Int : 172 ms QRS Dur : 094 ms QT Int : 434 ms P-R-T Axes : 052 060 030 degrees QTc Int : 426 ms Sinus bradycardia Otherwise normal ECG When compared with ECG of 01-MAR-2020 14:19, No significant change was found Referred By: Constantin Boyd Electronically Signed By:Tacho Potter
[2020-10-05] MEDS: cefTRIAXone sodium 1 GM in 0.9 % Sodium Chloride 50 ML IV (19:45)
[2020-10-05] MEDS: metroNIDAZOLE/NS 500 MG/100 ML PIGGYBACK 100 MG IV (20:06)
[2020-10-05 20:31] LABS: Prothrombin Time 12.3 SEC (10.8-13.0)
[2020-10-05 20:33] LABS: Glucose Urine UA NEG (NEG); Leukocyte Esterase Urine NEG (NEG); Nitrite Urine NEG (NEG); Urine Blood NEG (NEG); Urine Ketones NEG (NEG); Urine Protein NEG (NEG-TRACE)
[2020-10-05 20:34] LABS: Appearance Urine CLEAR; Color Urine YELLOW
[2020-10-05 20:34] LABS: Partial Thromboplastin Time 36.3 SEC (24.1-38.0)
[2020-10-05 21:34] LABS: COVID-19 Test Negative (Negative); IDNOW Serial# 9DD0AD1C
[2020-10-05] MEDS: HYDROmorphone HCl 0.5 MG/0.5 ML SYRINGE IVPUSH (22:29)
[2020-10-05] MEDS: 0.9 % Sodium Chloride 1,000 ML 125 ML IVCONT (22:33)
[2020-10-05] MEDS: Piperacillin Sodium/Tazobactam 3.375 GM in 0.9 % Sodium Chloride 50 ML IV (22:54)
[2020-10-06] VITALS (18 sets, daily range): BP systolic 108–145; BP diastolic 42–66; PULSE 51–84; RESP 14–18; TEMP 36.1–38.3; O2SAT 93–100; BMI 19.8
[2020-10-06] MEDS: Morphine Sulfate 4 MG/ML CARTRIDGE IVPUSH ×2 (02:09→20:14)
[2020-10-06] MEDS: Piperacillin Sodium/Tazobactam 3.375 GM in 0.9 % Sodium Chloride 50 ML IV ×3 (04:50→15:55)
--- NOTE | 2020-10-06 07:41 | PC.NURSE ---
plan to go to surgery at 1100
--- NOTE | 2020-10-06 09:17 | P.HPGS_ITS ---
History of Present Illness History of Present Illness Date of Service: 10/06/20 Chief complaint: Acute appendicitis Narrative: Yo Marsh is a 64 year old female who reports 6-7 days history of right lower quadrant abdominal pain that began about a 4/10 on a pain scale and progressed over the past 5-6 days to 8/10 at its worst. Patient came to the emergency department yesterday afternoon when the pain was persistent and constant. She had discomfort going over the bumps in the car on the way to the emergency department. She reports she has not had anything to eat in the past 48 hours. She denies fever, chills, shortness of breath, chest pain. This is her 1st episode of pain of this sort. She denies any exacerbating or alleviating factors. She denies any radiation of the pain. She denies any dysuria. 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 Review of Systems Review of Systems: Yes all other systems are reviewed and are negative Constitutional: Constitutional: Denies chills, Denies daytime sleepiness, Denies difficulty sleeping, Denies excessive sweating, Reports fatigue, Denies f ever(s), Reports headache(s), Denies night sweats, Denies snoring, Denies stops breathing during sleep and Denies weakness Eyes: Eyes: Denies blurry vision, Denies other visual disturbances and Denies requires corrective lenses ENT: Denies bleeding gums, Denies dysphagia, Reports dizziness, Reports headache(s), Denies hearing loss, Denies sinus pain and Denies sore throat Cardiovascular: Cardiovascular: Denies chest pain, Denies chest pain at rest, Denies chest pain with activity, Denies syncope, Denies irregular heart rhythm, Denies leg edema, Denies lightheadedness, Denies dyspnea, Denies dyspnea on exertion and Denies orthopnea Respiratory: Respiratory: Denies chest congestion, Denies cough, Denies dyspnea, Denies dyspnea on exertion, Denies snoring and Denies wheezing Gastrointestinal: Gastrointestinal: Denies abdominal pain, Denies melena, Denies bloating, Reports constipation, Denies dysphagia, Denies heartburn, Reports diarrhea, Denies nausea and Denies vomiting Genitourinary: Genitourinary: Denies hematuria, Denies nocturia and Denies nipple discharge Musculoskeletal: Musculoskeletal: Denies abnormal gait, Reports back pain, Den ies deformity, Reports arthralgias, Denies joint swelling and Denies stiffness Integumentary/Breasts: Skin/Breast: Denies breast pain, Denies breast mass and Denies nipple discharge Neurologic: Denies abnormal gait, Reports dizziness, Denies syncope, Reports headache(s), Denies seizure-like activity and Denies weakness Psychiatric: Psychiatric: Denies abnormal sleep pattern, Denies anxiety, Denies depression and Denies panic attacks Endocrine: Endocrine: Denies excessive sweating, Reports fatigue, Denies heat intolerance, Denies polyphagia, Denies polydipsia and Denies polyuria Hematologic/Lymphatic: Hematologic/Lymphatic: Denies easy bleeding and Denies easy bruising Allergic/Immunologic: Allergic/Immunologic: Denies wheezing PMFSH Past Medical History Medical History (Updated 10/06/20 @ 09:26 by Emily Sandoval MD) Arthritis Back pain Borderline personality disorder Constipation by delayed colonic transit Migraine headache Opiate abuse, continuous Family History Family History (Updated 09/29/20 @ 08:32 by Elmer Swann) Mother Heart disease Father Heart disease Sister No problems noted. Surgical History Surgical History (Updated 10/06/20 @ 09:26 by Emily Sandoval MD) H/O hemorrhoidectomy History of section, classical History of hysterectomy History of lumbar discectomy History of pubovaginal sling Status post left foot surgery Social History Social History (Updated 09/29/20 @ 08:31 by Elmer Swann) Alcohol intake: never Smoking Status: Light tobacco smoker Cigarettes Per Day: 4 Second Hand Smoke Exposure: No Use of substances other than those prescribed or required for medical reasons: No Advance Directives: No Advance Directives Information Provided: Yes Meds Allergies Allergy/AdvReac Type Severity Reaction Status Date / Time sumatriptan [From IMITREX] Allergy Unknown MAKES Verified 10/06/20 09:27 MIGRAINES WORSE Home Medications Medication Instructions Recorded Confirmed Type buprenorphine HCl [Belbuca] 600 mcg BUCCAL Q12H 08/31/20 08/31/20 History sxmigtdnee-vlesbsrfovzrh-hadp tab 08/31/20 History [Fioricet] celecoxib 1 cap PO DAILY 08/31/20 08/31/20 History morphine 1 tab PO TID PRN 08/31/20 08/31/20 History prochlorperazine maleate 25 mg PO TID PRN 08/31/20 08/31/20 History [Compazine] rosuvastatin 1 tab PO DAILY 08/31/20 08/31/20 History topiramate [Topamax] 100 mg PO TID 08/31/20 08/31/20 History trazodone 300 mg PO BEDTIME 08/31/20 08/31/20 History zolmitriptan [Zomig] 10 mg PO TID 08/31/20 08/31/20 History baclofen 20 mg tablet 20 mg PO TID 09/29/20 History cholecalciferol (vitamin D3) 125 125 mcg PO DAILY 09/29/20 History mcg (5,000 unit) capsule lidocaine 5 % topical ointment TOPICAL 09/29/20 History lidocaine 5 % topical patch 3 patch TOPICAL DAILY 09/29/20 History lorazepam 1 mg tablet mg PO 09/29/20 History prochlorperazine 25 mg rectal 25 mg [place] BID PRN 09/29/20 History suppository sennosides 8.6 mg tablet 8.6 mg PO TID 09/29/20 History Physical Exam Vital Signs: Vital Signs: Last Vital Signs Temp 98.6 F 10/05/20 22:10 Pulse 51 10/06/20 03:48 Resp 16 10/06/20 03:48 BP 114/51 L 10/06/20 03:48 Pulse Ox 97 10/06/20 03:48 Body Mass Index 19.6 Const: General: cooperative, healthy appearing and no acute distress; No anxious Nutritional Appearance: well nourished Orientation/consciousness: patient oriented x3 HENMT: Head: Yes normal to inspection, Yes normocephalic and Yes atraumatic Ears: hearing grossly normal bilaterally Mouth: Normal oral and palatal mucosa present Eyes: General: appearance normal, both eyes and all related structures EOM: EOMs intact bilaterally Neck: Neck: Yes normal visual inspection, Yes full ROM, Yes no lymphadenopathy and Yes trachea midline Thyroid: Thyroid normal Resp: Effort & Inspection: normal respiratory effort Auscultation: clear to auscultation bilaterally, no crackles, no rales, no rhonchi and no wheezes Cardio: Jugular venous distension: no JVD Rate: regular rate Heart sounds: S1 normal heart sound present, S2 normal heart sound present, no gallops, no murmurs and no rubs GI: Other: Tender to palpation in the right lower quadrant suprapubic region and left lower quadrant with some voluntary guarding on palpation. No rebound. Inspection: Yes normal to inspection and No distended Skin: General skin exam: no rashes or lesions noted Wounds: no wounds Neuro: General: patient oriented x3 Cranial nerves: Yes CN's II-XII intact bilaterally Extrem: Other: Boot in place on the left lower extremity General: Yes no calf tenderness Psych: Appearance: grossly normal Mental Status: mental status grossly normal Speech and movement: Normal speech and movement present Affect: normal affect Attitude: cooperative Thought process: Normal thought process present Results Results Labs: Short CBC 10/05/20 Range/Units 16:05 WBC 7.3 (4.8-10.8) X10*3/uL Hgb 11.2 L (12.0-16.0) g/dl Hct 33.9 L (37-47) % Plt Count 222 (160-400) X10*3/uL BMP 10/05/20 16:05 Sodium 138 Potassium 3.9 Chloride 102 Carbon Dioxide 27 BUN 20 H D Creatinine 0.83 Calcium 9.1 Liver Function 10/05/20 Range/Units 16:05 Total Bilirubin 0.5 (0.0-1.0) mg/dL AST 22 D (5-31) U/L ALT 9 (0-31) U/L Alkaline Phosphatase 76 D (39-117) U/L Albumin 3.8 (3.5-5.0) g/dL Urine 10/05/20 Range/Units 20:09 Urine Color YELLOW Urine Appearance CLEAR Urine pH 7.0 (5.0-8.0) Ur Specific [place] 1.010 (1.005-1.025) Urine Protein NEG (NEG-TRACE) MG/DL Urine Glucose (UA) NEG (NEG) MG/DL Assessment and Plan (1) Acute appendicitis: Qualifiers: Appendicitis abscess presence: without abscess Appendicitis gangrene presence: without gangrene Appendicitis perforation presence: without perforation Status: Acute This is a 64-year-old lady who has acute appendicitis by history physical exam and CT scan findings. Patient will be taken to the operating room for laparoscopic possible open appendectomy. Risks benefits and alternatives were discussed with the patient and she agrees to proceed. 60 minutes of time were used to evaluate the patient review her laboratory values, CT scan findings admit the patient and document on this patient, and schedule surgery for for this patient.
--- NOTE | 2020-10-06 11:35 | P.CONAN_ITS ---
[facility] Past Medical History Medical History (Updated 10/06/20 @ 09:26 by Emily Sandoval MD) Arthritis Back pain Borderline personality disorder Constipation by delayed colonic transit Migraine headache Opiate abuse, continuous Family History Family History (Updated 10/06/20 @ 09:26 by Emily Sandoval MD) Mother Heart disease Father Heart disease Sister No problems noted. Surgical History Surgical History (Updated 10/06/20 @ 09:26 by Emily Sandoval MD) H/O hemorrhoidectomy History of section, classical History of hysterectomy History of lumbar discectomy History of pubovaginal sling Status post left foot surgery Social History Social History (Updated 09/29/20 @ 08:31 by Elmer Swann) Alcohol intake: never Smoking Status: Light tobacco smoker Cigarettes Per Day: 4 Second Hand Smoke Exposure: No Meds Allergies Allergy/AdvReac Type Severity Reaction Status Date / Time sumatriptan [From IMITREX] Allergy Unknown MAKES Verified 10/06/20 09:27 MIGRAINES WORSE Home Medications Medication Instructions Recorded Confirmed Type buprenorphine HCl [Belbuca] 600 mcg BUCCAL Q12H 08/31/20 08/31/20 History evxvuiqupe-bujnjvauaiotn-nsik tab 08/31/20 History [Fioricet] celecoxib 1 cap PO DAILY 08/31/20 08/31/20 History morphine 1 tab PO TID PRN 08/31/20 08/31/20 History prochlorperazine maleate 25 mg PO TID PRN 08/31/20 08/31/20 History [Compazine] rosuvastatin 1 tab PO DAILY 08/31/20 08/31/20 History topiramate [Topamax] 100 mg PO TID 08/31/20 08/31/20 History trazodone 300 mg PO BEDTIME 08/31/20 08/31/20 History zolmitriptan [Zomig] 10 mg PO TID 08/31/20 08/31/20 History baclofen 20 mg tablet 20 mg PO TID 09/29/20 History cholecalciferol (vitamin D3) 125 125 mcg PO DAILY 09/29/20 History mcg (5,000 unit) capsule lidocaine 5 % topical ointment TOPICAL 09/29/20 History lidocaine 5 % topical patch 3 patch TOPICAL DAILY 09/29/20 History lorazepam 1 mg tablet mg PO 09/29/20 History prochlorperazine 25 mg rectal 25 mg SC BID PRN 09/29/20 History suppository sennosides 8.6 mg tablet 8.6 mg PO TID 09/29/20 History Exam Exam Date and Time: October 06, 2020 1135 Height,Weight and Vital Signs: Height 5 ft 3 in Weight 50.802 kg Last Vital Signs Temp 98.8 F 10/06/20 11:22 Pulse 57 10/06/20 11:22 Resp 18 10/06/20 11:22 BP 113/42 L 10/06/20 11:22 Pulse Ox 100 10/06/20 11:22 Pertinent Lab Results Pertinent Lab Results: Laboratory Tests 10/05/20 10/05/20 10/05/20 16:05 16:05 16:05 WBC 7.3 RBC 3.40 L Hgb 11.2 L Hct 33.9 L MCV 99.7 H MCH 32.9 MCHC 33.0 RDW 11.7 Plt Count 222 MPV 9.8 Immature Gran % (Auto) 0.6 H Neut % (Auto) 59.0 Lymph % (Auto) 31.4 [place] % (Auto) 8.3 Eos % (Auto) 0.4 Baso % (Auto) 0.3 Lymph # (Auto) 2.3 [place] # (Auto) 0.6 Eos # (Auto) 0.0 Baso # (Auto) 0.0 Abs Immat Gran (auto) 0.04 H Absolute Neuts (auto) 4.3 Absolute Nucleated RBC 0.000 Nucleated RBC % (auto) 0.0 PT INR APTT Hold Blue Top SEE NOTE Sodium 138 Potassium 3.9 Chloride 102 Carbon Dioxide 27 Anion Gap 13 BUN 20 H D Creatinine 0.83 Estim Creat Clear Calc 55.8 Estimated GFR > 60 Random Glucose 103 Calcium 9.1 Total Bilirubin 0.5 AST 22 D ALT 9 Alkaline Phosphatase 76 D Total Protein 6.1 L Albumin 3.8 Lipase 11 Urine Color Urine Appearance Urine pH Ur Specific [place] Urine Protein Urine Glucose (UA) Urine Ketones Urine Blood Urine Nitrite Ur Leukocyte Esterase COVID-19 (NAGI) COVID-19 Clin Com Blood Type Antibody Screen 10/05/20 10/05/20 10/05/20 20:03 20:03 20:09 WBC RBC Hgb Hct MCV MCH MCHC RDW Plt Count MPV Immature Gran % (Auto) Neut % (Auto) Lymph % (Auto) [place] % (Auto) Eos % (Auto) Baso % (Auto) Lymph # (Auto) [place] # (Auto) Eos # (Auto) Baso # (Auto) Abs Immat Gran (auto) Absolute Neuts (auto) Absolute Nucleated RBC Nucleated RBC % (auto) PT 12.3 INR 1.0 APTT 36.3 Hold Blue Top Sodium Potassium Chloride Carbon Dioxide Anion Gap BUN Creatinine Estim Creat Clear Calc Estimated GFR Random Glucose Calcium Total Bilirubin AST ALT Alkaline Phosphatase Total Protein Albumin Lipase Urine Color YELLOW Urine Appearance CLEAR Urine pH 7.0 Ur Specific [place] 1.010 Urine Protein NEG Urine Glucose (UA) NEG Urine Ketones NEG Urine Blood NEG Urine Nitrite NEG Ur Leukocyte Esterase NEG COVID-19 (NAGI) COVID-Spotie Com Blood Type A Positive Antibody Screen NEGATIVE 10/05/20 21:11 WBC RBC Hgb Hct MCV MCH MCHC RDW Plt Count MPV Immature Gran % (Auto) Neut % (Auto) Lymph % (Auto) [place] % (Auto) Eos % (Auto) Baso % (Auto) Lymph # (Auto) [place] # (Auto) Eos # (Auto) Baso # (Auto) Abs Immat Gran (auto) Absolute Neuts (auto) Absolute Nucleated RBC Nucleated RBC % (auto) PT INR APTT Hold Blue Top Sodium Potassium Chloride Carbon Dioxide Anion Gap BUN Creatinine Estim Creat Clear Calc Estimated GFR Random Glucose Calcium Total Bilirubin AST ALT Alkaline Phosphatase Total Protein Albumin Lipase Urine Color Urine Appearance Urine pH Ur Specific [place] Urine Protein Urine Glucose (UA) Urine Ketones Urine Blood Urine Nitrite Ur Leukocyte Esterase COVID-19 (NAGI) Negative COVID-19 [email or web address] Com See Note Blood Type Antibody Screen Airway Mallampati Class: II TM Dist: >3cm Neck ROM: Full Partial: Upper and Lower Loose/Missing/Broken Teeth: Yes, Upper and Lower Heart: RRR Lungs: CTA Assessment and Plan Assessment Anesthesia Assessment: Anesthesia Plan Discussed and Chart Reviewed Final Anesthetic Review NPO: Yes ASA Class: II Final Preanesthetic Review: Meds/Allgs Chart Reviewed, Consent Obtained/Reviewed and Anes Risks/Benef Reviewed Patient Risk: Low Procedure Risk: Low Anesthetic Plan Anesthetic Plan: GA Disposition: Standard PACU
--- NOTE | 2020-10-06 14:00 | PM.OP ---
Brief Operative Note Date of Service: 10/06/20 Pre-op diagnosis: Acute appendicitis Post-op diagnosis: same Procedure: Laparoscopic appendectomy Implants: covidien timmy Surgeon: Emily Sandoval MD Anesthesia: GETA Estimated blood loss (mL): 5 Pathology: other (Appendix) Condition: stable Disposition: PACU
--- NOTE | 2020-10-06 14:01 | P.OP_ITS ---
Operative Note Operative Note Date of Service: 10/06/20 Narrative: Patient was brought into the operating room, placed on operating room table in a supine position. General anesthesia was induced. The patient received 2 g of IV cefotetan preoperatively. Normal DVT prophylaxis was instit uted. Safety time-out was performed. The abdomen was prepped and draped in normal sterile fashion using ChloraPrep. Next a mixture of 1% lidocaine with epinephrine 0.25% Marcaine plain was used to anesthetize the planned incision site in the infraumbilical position. A number 11 scalpel used to make a 2 cm infraumbilical transverse surgical incision through which the subcutaneous tissues were dissected down to the level of the fascia. The fascia was grasped between 2 Mlia clamps and entered for about 1 cm. A 11. Scalpel used to cut the fascia. A 0 Vicryl suture was placed on either side of the opened fascia. A finger was used to bluntly gain access to the intra-abdominal cavity. A 12 mm López trocar was introduced into the abdomen and secured to the abdominal wall using sutures on the fascia. The abdominal cavity was insufflated to 15 mm of mercury. A 5 mm 30 degree laparoscopic was introduced abdomen and used to survey the abdominal cavity which was relatively normal. Two additional 5 mm ports were placed under direct vision, 1 in the suprapubic region and 1 in the left lower quadrant under direct vision. The patient was placed in Trendelenburg positioning with the left side tilted down. We visualized the cecum in the right lower quadrant as well as the appendix. The appendix was dilated and inflamed in appearance. We grasped the appendix and dissected it free from the surrounding tissues. We used the LigaSure device to dissect the mesoappendix down at the base of the appendix. We then used a 60 mm blue load stapler to staple across the base of the appendix. We placed the appendix in an Endo-Catch bag and removed from the abdomen. We evaluated staple line at the cecum and it was in good condition there was evidence of any bleeding. There was no injury to any of the viscera. We then removed the 5 mm ports from the suprapubic region and the left lower quadrant under direct vision. There was no bleeding from these port sites. We desufflated the abdomen under direct vision and removed the last port and laparoscope. We reapproximated the fascial defect at the umbilicus using a [id number] 0 Vicryl suture and tied the original fascial sutures over that closure. There was no residual fascial defect. We reapproximated all skin incisions with a 4 0 Monocryl subcuticular stitch. We cleaned and dried the skin and applied Dermabond skin glue to all skin incisions. All counts were correct at the end of the case there were no complications. The patient was awakened in stable condition prior to extubation and transferred to recovery room.
--- NOTE | 2020-10-06 14:03 | PM.DS ---
DS: Providers Provider Date of Service: 10/06/20 Date of admission: 10/05/20 20:53 Primary care physician: Refugio Patel MD DS: Diagnosis Discharge Diagnosis (1) Acute appendicitis: Status: Acute DS: Medications Discharge Medications Home Medications: Home Medications Medication Instructions Recorded Confirmed Belbuca 600 mcg BUCCAL Q12H 08/31/20 08/31/20 wwteocapeu-ihnrnejgoxmmc-bqvs tab 08/31/20 celecoxib 1 cap PO DAILY 08/31/20 08/31/20 morphine 1 tab PO TID PRN 08/31/20 08/31/20 prochlorperazine maleate 25 mg PO TID PRN 08/31/20 08/31/20 [Compazine] rosuvastatin 1 tab PO DAILY 08/31/20 08/31/20 topiramate [Topamax] 100 mg PO TID 08/31/20 08/31/20 trazodone 300 mg PO BEDTIME 08/31/20 08/31/20 zolmitriptan [Zomig] 10 mg PO TID 08/31/20 08/31/20 baclofen 20 mg tablet 20 mg PO TID 09/29/20 cholecalciferol (vitamin D3) 125 125 mcg PO DAILY 09/29/20 mcg (5,000 unit) capsule lidocaine 5 % topical ointment TOPICAL 09/29/20 lidocaine 5 % topical patch 3 patch TOPICAL DAILY 09/29/20 lorazepam 1 mg tablet mg PO 09/29/20 prochlorperazine 25 mg rectal 25 mg UT BID PRN 09/29/20 suppository sennosides 8.6 mg tablet 8.6 mg PO TID 09/29/20 Previous Rx's Medication Instructions Recorded vancomycin 125 mg capsule 125 mg PO QID 10 Days #40 cap 08/10/20 loperamide 1 mg/7.5 mL oral liquid 1 mg PO Q2-4H PRN #120 ml 08/15/20 loperamide 2 mg PO Q4H PRN #30 cap 08/25/20 bisacodyl 5 mg tablet,delayed 10 mg PO ONCE 1 Days #2 tab 08/30/20 release loperamide [Imodium A-D] 2 mg PO BID #60 cap 08/31/20 pantoprazole 40 mg PO DAILY #30 tab 08/31/20 ondansetron 4 mg disintegrating 4 mg PO Q8H PRN #30 tab 09/06/20 tablet polyethylene glycol 3350 17 17 g PO BID #238 g 09/06/20 gram/dose oral powder sucralfate 100 mg/mL oral 10 ml PO BID #420 ml 09/14/20 suspension sulfamethoxazole 800 1 tab PO Q12H #14 tab 09/29/20 mg-trimethoprim 160 mg tablet hydromorphone [Dilaudid] 2 mg PO Q4H PRN #20 tab 10/06/20 DS: Summary Hospital Course Hospital Course: This is a 64-year-old lady who was admitted through the emergency department on 10/05/2020 with a diagnosis of acute appendicitis. Patient was taken to the operating room following morning for a laparoscopic appendectomy which was uneventful. Patient was sent back to the surgical floor started on diet and tolerated well. Patient was then discharged home. Time spent discussing smoking cessation with patient: 3 to 10 minutes Status at Discharge Cognitive/behavioral status at discharge: Normal Functional status at discharge: uses cane/walker Time Spent with Patient Time attestation: Total time spent providing and/or coordinating discharge services:30 min Discharge coordination time: Less than 30 minutes Physical Exam Vital Signs: Vital Signs: Last Vital Signs Temp 98.4 F 10/06/20 13:40 Pulse 66 10/06/20 13:58 Resp 18 10/06/20 13:58 BP 116/53 L 10/06/20 13:58 Pulse Ox 94 10/06/20 13:58 Body Mass Index 19.8 DS: Data Data Completed and Pending Pending studies at discharge: Pending at discharge 10/06/20 13:38 Surgical [PTH] Routine Labs on day of discharge: Laboratory Tests 10/05/20 10/05/20 10/05/20 16:05 16:05 16:05 WBC 7.3 RBC 3.40 L Hgb 11.2 L Hct 33.9 L MCV 99.7 H MCH 32.9 MCHC 33.0 RDW 11.7 Plt Count 222 MPV 9.8 Immature Gran % (Auto) 0.6 H Neut % (Auto) 59.0 Lymph % (Auto) 31.4 [place] % (Auto) 8.3 Eos % (Auto) 0.4 Baso % (Auto) 0.3 Lymph # (Auto) 2.3 [place] # (Auto) 0.6 Eos # (Auto) 0.0 Baso # (Auto) 0.0 Abs Immat Gran (auto) 0.04 H Absolute Neuts (auto) 4.3 Absolute Nucleated RBC 0.000 Nucleated RBC % (auto) 0.0 PT INR APTT Hold Blue Top SEE NOTE Sodium 138 Potassium 3.9 Chloride 102 Carbon Dioxide 27 Anion Gap 13 BUN 20 H D Creatinine 0.83 Estim Creat Clear Calc 55.8 Estimated GFR > 60 Random Glucose 103 Calcium 9.1 Total Bilirubin 0.5 AST 22 D ALT 9 Alkaline Phosphatase 76 D Total Protein 6.1 L Albumin 3.8 Lipase 11 Urine Color Urine Appearance Urine pH Ur Specific [place] Urine Protein Urine Glucose (UA) Urine Ketones Urine Blood Urine Nitrite Ur Leukocyte Esterase COVID-19 (NAGI) COVID-VaporWire Blood Type Antibody Screen 10/05/20 10/05/20 10/05/20 20:03 20:03 20:09 WBC RBC Hgb Hct MCV MCH MCHC RDW Plt Count MPV Immature Gran % (Auto) Neut % (Auto) Lymph % (Auto) [place] % (Auto) Eos % (Auto) Baso % (Auto) Lymph # (Auto) [place] # (Auto) Eos # (Auto) Baso # (Auto) Abs Immat Gran (auto) Absolute Neuts (auto) Absolute Nucleated RBC Nucleated RBC % (auto) PT 12.3 INR 1.0 APTT 36.3 Hold Blue Top Sodium Potassium Chloride Carbon Dioxide Anion Gap BUN Creatinine Estim Creat Clear Calc Estimated GFR Random Glucose Calcium Total Bilirubin AST ALT Alkaline Phosphatase Total Protein Albumin Lipase Urine Color YELLOW Urine Appearance CLEAR Urine pH 7.0 Ur Specific [place] 1.010 Urine Protein NEG Urine Glucose (UA) NEG Urine Ketones NEG Urine Blood NEG Urine Nitrite NEG Ur Leukocyte Esterase NEG COVID-19 (NAGI) COVID-19 Affinio Blood Type A Positive Antibody Screen NEGATIVE 10/05/20 21:11 WBC RBC Hgb Hct MCV MCH MCHC RDW Plt Count MPV Immature Gran % (Auto) Neut % (Auto) Lymph % (Auto) [place] % (Auto) Eos % (Auto) Baso % (Auto) Lymph # (Auto) [place] # (Auto) Eos # (Auto) Baso # (Auto) Abs Immat Gran (auto) Absolute Neuts (auto) Absolute Nucleated RBC Nucleated RBC % (auto) PT INR APTT Hold Blue Top Sodium Potassium Chloride Carbon Dioxide Anion Gap BUN Creatinine Estim Creat Clear Calc Estimated GFR Random Glucose Calcium Total Bilirubin AST ALT Alkaline Phosphatase Total Protein Albumin Lipase Urine Color Urine Appearance Urine pH Ur Specific [place] Urine Protein Urine Glucose (UA) Urine Ketones Urine Blood Urine Nitrite Ur Leukocyte Esterase COVID-19 (NAGI) Negative COVID-19 Clin Com See Note Blood Type Antibody Screen Discharge Plan Discharge Anticipated Discharge Date/Time: 10/06/20 18:00 Patient Disposition: Home, Self-Care Referrals: Refugio Patel MD [Primary Care Provider] - Discharge Medications: New hydromorphone [Dilaudid] 2 mg tablet 2 mg PO Q4H PRN (Reason: pain) Qty: 20 RF: 0 Continued vancomycin 125 mg capsule 125 mg PO QID 10 Days Qty: 40 RF: 0 loperamide 1 mg/7.5 mL liquid 1 mg PO Q2-4H PRN (Reason: loose stool) Qty: 120 RF: 0 bisacodyl [Dulcolax (bisacodyl)] 5 mg tablet,delayed release (DR/EC) 10 mg PO ONCE 1 Days Qty: 2 RF: 0 ondansetron 4 mg tablet,disintegrating 4 mg PO Q8H PRN (Reason: nausea and vomiting) Qty: 30 RF: 0 polyethylene glycol 3350 [Miralax] 17 gram/dose powder 17 g PO BID Qty: 238 RF: 3 sucralfate 100 mg/mL suspension 10 ml PO BID Qty: 420 RF: 0 loperamide 2 mg capsule 2 mg PO Q4H PRN (Reason: loose stool) Qty: 30 RF: 0 zolmitriptan [Zomig] 5 mg Tablet 10 mg PO TID RF: 0 zzcytwxjir-bsmxtsvdrlwhk-scze 50-325-40 mg Tablet RF: 0 trazodone 300 mg Tablet 300 mg PO BEDTIME RF: 0 Belbuca 600 mcg Film 600 mcg BUCCAL Q12H RF: 0 topiramate [Topamax] 100 mg Tablet 100 mg PO TID RF: 0 prochlorperazine maleate [Compazine] 5 mg Tablet 25 mg PO TID PRN (Reason: Headache) RF: 0 morphine 15 mg tablet 1 tab PO TID PRN (Reason: Pain, Severe) RF: 0 rosuvastatin 40 mg tablet 1 tab PO DAILY RF: 0 pantoprazole 40 mg tablet,delayed release (DR/EC) 40 mg PO DAILY Qty: 30 RF: 2 loperamide [Imodium A-D] 2 mg capsule 2 mg PO BID Qty: 60 RF: 0 sulfamethoxazole-trimethoprim [Bactrim DS] 800-160 mg tablet 1 tab PO Q12H Qty: 14 RF: 0 Held celecoxib 200 mg capsule 1 cap PO DAILY RF: 0 Hold Instructions: Resume on 10/09/20. Activity on Discharge: No heavy lifting Stand Alone Forms: Patient Portal Discharge page Activity Restrictions/Additional Instructions: Patient should avoid all heavy lifting greater than 5 lb for the next 4 weeks. She should follow up with Dr. Sandoval in 2 weeks time frame and should call the office at [phone] to schedule her follow-up appointment she should also call the office with any questions or concerns such as increasing abdominal pain, fever, chills, shortness of breath, chest pain, leg pain, or swelling of the legs. Patient may shower but should avoid all hot tubs, baths, swimming pools. Visit Report Forms: Patient Portal Discharge page Care Plan Goals: Return to baseline health Health Concerns: Appendicitis, narcotics use Plan of Treatment: Status post appendectomy. Patient will follow-up with her primary care doctor regarding narcotic use.
[2020-10-06] MEDS: ondansetron HCL 4 MG/2 ML VIAL IVPUSH (14:06)
[2020-10-06] MEDS: oxyCODONE HCl Immed Release 5 MG TABLET 10 MG PO (14:10)
[2020-10-06] MEDS: 0.9 % Sodium Chloride 1,000 ML 125 ML IVCONT (17:53)
[2020-10-07] VITALS (8 sets, daily range): BP systolic 137–154; BP diastolic 56–67; PULSE 64–83; RESP 17–20; TEMP 36.4–37.5; O2SAT 96–99
[2020-10-07] MEDS: Morphine Sulfate 4 MG/ML CARTRIDGE IVPUSH ×6 (00:04→21:15)
[2020-10-07] MEDS: diphenhydrAMINE HCL 25 MG TABLET PO (00:07)
[2020-10-07] MEDS: 0.9 % Sodium Chloride 1,000 ML 125 ML IVCONT ×3 (01:41→18:09)
[2020-10-07] MEDS: oxyCODONE HCl Immed Release 5 MG TABLET 10 MG PO ×3 (06:12→22:09)
--- NOTE | 2020-10-07 08:40 | MHC.CM.PN ---
PATIENT IS DISCHARGED TO HOME - SELF CARE. RN AWARE OF PLAN. CASE MANAGEMENT AVAILABLE FOR ANY ADDITIONAL DC NEEDS.
[2020-10-07] MEDS: 0.9 % Sodium Chloride Flush 3 ML SYRINGE IVFLUSH ×2 (08:45→16:24)
[2020-10-07] MEDS: Butalb/Acetamin/Caff 50/325/40 TABLET 2 TAB PO ×3 (08:45→18:08)
--- NOTE | 2020-10-07 08:58 | PM.PNGS ---
Subjective Subjective Date of Service: 10/07/20 Interval history: Patient report incisional soreness and difficulty getting out of bed due to this pain. She denies nausea or vomiting. Physical Exam Vital Signs: Vital Signs: Last Vital Signs Temp 98.5 F 10/07/20 07:23 Pulse 71 10/07/20 07:23 Resp 17 10/07/20 07:23 BP 145/58 H 10/07/20 07:23 Pulse Ox 96 10/07/20 07:23 Body Mass Index 19.8 Const: General: cooperative, no acute distress, alert and awake Eyes: Conjunctivae: conjunctivae normal Pupils: Equal, round and reactive pupils present Resp: Effort & Inspection: normal respiratory effort, no cough and not tachypneic GI: Other: Abdomen soft and nondistended, trocar incisions are clean and intact without redness or discharge Skin: Other: Warm and dry, no rash Neuro: Cranial nerves: Yes Equal, round and reactive pupils present Extrem: General: No edema Progress Note: A&P Assessment and plan (1) Acute appendicitis: Status: Acute Assessment and Plan: POD #1 S/P laparoscopic appendectomy. Patient tolerated the procedure well and other than incisional tenderness, she is doing well. She is has not eaten much since the surgery and is having difficulty getting out of bed independently. Will hold off on discharge until she is tolerating a diet and more comfortable. Patient is regular migraine medication reordered. Fall Risk Details Current Medications: Current Medications Generic Name Dose Route Start Last Admin Trade Name Freq PRN Reason Stop Dose Admin Acetaminophen 650 mg 10/05/20 20:56 Acetaminophen 325 Mg Tablet PO Q4H PRN Fever Acetaminophen/Butalbital/Caffeine 2 tab 10/07/20 07:51 10/07/20 08:45 Butalb/Acetamin/Caff 50/325/40 Tablet PO 2 tab Q4H PRN Administration migraine headaches Diphenhydramine HCl 25 mg 10/05/20 21:02 10/07/20 00:07 Diphenhydramine Hcl 25 Mg Tablet PO 25 mg Q4H PRN Administration itching Sodium Chloride 1,000 mls @ 125 mls/hr 10/05/20 21:00 10/07/20 08:45 Ns IVCONT 125 mls/hr .Q8H JACK Administration Morphine Sulfate 2 mg 10/05/20 20:56 Morphine Sulfate 2 Mg/Ml Cartridge IVPUSH Q3H PRN Pain, Moderate (Pain Scale 4-6 Morphine Sulfate 4 mg 10/05/20 21:02 10/07/20 08:45 Morphine Sulfate 4 Mg/Ml Cartridge IVPUSH 4 mg Q3H PRN Administration Pain, Severe (Pain Scale 7-10) Ondansetron HCl 4 mg 10/06/20 11:15 10/06/20 14:06 Ondansetron Hcl 4 Mg/2 Ml Vial IVPUSH 4 mg Q4H PRN Administration Nausea Oxycodone HCl 5 mg 10/05/20 20:56 Oxycodone Hcl Immed Release 5 Mg Tablet PO Q3H PRN Pain, Moderate (Pain Scale 4-6 Oxycodone HCl 10 mg 10/05/20 20:56 10/07/20 06:12 Oxycodone Hcl Immed Release 5 Mg Tablet PO 10 mg Q3H PRN Administration Pain, Severe (Pain Scale 7-10) Sodium Chloride 3 ml 10/06/20 00:00 10/07/20 08:45 0.9 % Sodium Chloride Flush 3 Ml Syringe IVFLUSH 3 ml QSHIFT JACK Administration Time Spent With Patient Time: Total time spent is greater than 50% in coordination of care (as documented) at patient's floor/unit and/or counseling patient: Time with patient: 15 - 24 minutes
--- NOTE | 2020-10-07 09:29 | HO.POSTANES ---
Post Anesthesia Evaluation Post Anesthesia Evaluation Vital Signs: Vital Signs Temp Pulse Resp BP Pulse Ox 10/07/20 07:23 98.5 F 71 17 145/58 H 96 10/07/20 03:59 99.5 F 83 18 154/64 H 97 10/06/20 23:33 100.9 F H 84 18 127/58 L 96 Anesthesia: General Endotracheal-GETA Mental Status: Awake Pain Control: Satisfactory Nausea/Vomiting: None Hydration: Adequate Anesthesia-Related Issues: No Anes. Related Issues
[2020-10-07] MEDS: ondansetron HCL 4 MG/2 ML VIAL IVPUSH (13:47)
[2020-10-08] VITALS (9 sets, daily range): BP systolic 133–167; BP diastolic 56–78; PULSE 60–80; RESP 17–20; TEMP 36.4–36.8; O2SAT 94–98
[2020-10-08] MEDS: Morphine Sulfate 4 MG/ML CARTRIDGE IVPUSH ×7 (00:33→21:01)
[2020-10-08] MEDS: ondansetron HCL 4 MG/2 ML VIAL IVPUSH ×2 (01:08→09:22)
[2020-10-08] MEDS: diphenhydrAMINE HCL 25 MG TABLET PO (01:08)
[2020-10-08] MEDS: Butalb/Acetamin/Caff 50/325/40 TABLET 2 TAB PO ×3 (01:08→15:36)
[2020-10-08] MEDS: oxyCODONE HCl Immed Release 5 MG TABLET PO (06:07)
[2020-10-08] MEDS: 0.9 % Sodium Chloride Flush 3 ML SYRINGE IVFLUSH ×3 (07:28→23:04)
--- NOTE | 2020-10-08 08:39 | PM.PNGS ---
Subjective Subjective Date of Service: 10/08/20 Interval history: Reports severe pain in the lower abdomen during the night making it difficult to sleep. She has been taking both her morphine and oxycodone. Normally takes trazodone for sleep at night. Was able to tolerate her diet yesterday and has been getting up to go to the bathroom frequently. Does not feel ready to go home because of her abdominal pain. Physical Exam Vital Signs: Vital Signs: Last Vital Signs Temp 97.7 F 10/08/20 07:53 Pulse 60 10/08/20 07:53 Resp 17 10/08/20 07:53 BP 162/75 H 10/08/20 07:53 Pulse Ox 97 10/08/20 07:53 Body Mass Index 19.8 Const: General: cooperative, no acute distress, alert and awake Neck: Neck: Yes no JVD Resp: Effort & Inspection: normal respiratory effort, no cough and no respiratory distress GI: Other: Soft, nondistended, trocar incisions are clean, dry, and intact, Dermabond dressings intact. No erythema. Skin: Other: Warm and dry, no rash Extrem: General: Yes no pedal edema Progress Note: A&P Assessment and plan (1) Acute appendicitis: Status: Acute Assessment and Plan: Patient now is postoperative day 2. Following a laparoscopic appendectomy. She reports continued abdominal pain and is requiring both perenteral an oral pain medication, but reports previously taking morphine following a recent foot surgery. She is tolerating a diet without nausea or vomiting. Her abdominal exam is fairly benign with clean incisions. I will hold on her discharge for today. The trazodone has been reordered as well. Will stop the IV fluids. Fall Risk Details Current Medications: Current Medications Generic Name Dose Route Start Last Admin Trade Name Freq PRN Reason Stop Dose Admin Acetaminophen 650 mg 10/05/20 20:56 Acetaminophen 325 Mg Tablet PO Q4H PRN Fever Acetaminophen/Butalbital/Caffeine 2 tab 10/07/20 07:51 10/08/20 01:08 Butalb/Acetamin/Caff 50/325/40 Tablet PO 2 tab Q4H PRN Administration migraine headaches Diphenhydramine HCl 25 mg 10/05/20 21:02 10/08/20 01:08 Diphenhydramine Hcl 25 Mg Tablet PO 25 mg Q4H PRN Administration itching Morphine Sulfate 2 mg 10/05/20 20:56 Morphine Sulfate 2 Mg/Ml Cartridge IVPUSH Q3H PRN Pain, Moderate (Pain Scale 4-6 Morphine Sulfate 4 mg 10/05/20 21:02 10/08/20 07:28 Morphine Sulfate 4 Mg/Ml Cartridge IVPUSH 4 mg Q3H PRN Administration Pain, Severe (Pain Scale 7-10) Ondansetron HCl 4 mg 10/07/20 22:06 10/08/20 01:08 Ondansetron Hcl 4 Mg/2 Ml Vial IVPUSH 4 mg Q8H PRN Administration Nausea Oxycodone HCl 5 mg 10/05/20 20:56 10/08/20 06:07 Oxycodone Hcl Immed Release 5 Mg Tablet PO 5 mg Q3H PRN Administration Pain, Moderate (Pain Scale 4-6 Oxycodone HCl 10 mg 10/05/20 20:56 10/07/20 22:09 Oxycodone Hcl Immed Release 5 Mg Tablet PO 10 mg Q3H PRN Administration Pain, Severe (Pain Scale 7-10) Sodium Chloride 3 ml 10/06/20 00:00 10/08/20 07:28 0.9 % Sodium Chloride Flush 3 Ml Syringe IVFLUSH 3 ml QSHIFT JACK Administration Trazodone HCl 300 mg 10/08/20 21:00 Trazodone Hcl 100 Mg Tablet PO BEDTIME JACK Time Spent With Patient Time: Total time spent is greater than 50% in coordination of care (as documented) at patient's floor/unit and/or counseling patient: Time with patient: 15 - 24 minutes
[2020-10-08] MEDS: oxyCODONE HCl Immed Release 5 MG TABLET 10 MG PO ×5 (09:17→23:08)
[2020-10-08] MEDS: traZODone HCL 100 MG TABLET 300 MG PO (21:01)
[2020-10-09] MEDS: Morphine Sulfate 4 MG/ML CARTRIDGE IVPUSH ×8 (00:12→23:38)
[2020-10-09] MEDS: ondansetron HCL 4 MG/2 ML VIAL IVPUSH ×3 (00:16→18:51)
[2020-10-09] MEDS: oxyCODONE HCl Immed Release 5 MG TABLET PO (02:09)
[2020-10-09] MEDS: diphenhydrAMINE HCL 25 MG TABLET PO ×2 (02:09→23:38)
[2020-10-09 04:00] VITALS: BP 133/61; PULSE 76; RESP 20; TEMP 37.3; O2SAT 94
[2020-10-09] MEDS: Butalb/Acetamin/Caff 50/325/40 TABLET 2 TAB PO ×4 (06:22→19:46)
[2020-10-09 07:26] VITALS: BP 133/57; PULSE 67; RESP 18; TEMP 36.6; O2SAT 95
[2020-10-09] MEDS: oxyCODONE HCl Immed Release 5 MG TABLET 10 MG PO ×5 (08:17→22:56)
[2020-10-09] MEDS: 0.9 % Sodium Chloride Flush 3 ML SYRINGE IVFLUSH ×2 (08:18→17:20)
[2020-10-09 11:17] VITALS: BP 140/68; PULSE 64; RESP 20; TEMP 36.3; O2SAT 96
[2020-10-09 14:26] VITALS: BMI 19.8
[2020-10-09 15:14] VITALS: BP 133/64; PULSE 68; RESP 19; TEMP 36.6; O2SAT 97
[2020-10-09 19:50] VITALS: BP 138/56; PULSE 71; RESP 18; TEMP 37.1; O2SAT 96
[2020-10-09] MEDS: traZODone HCL 100 MG TABLET 300 MG PO (20:34)
[2020-10-09 23:12] VITALS: BP 117/51; PULSE 76; RESP 20; TEMP 36.5; O2SAT 95
[2020-10-10] MEDS: 0.9 % Sodium Chloride Flush 3 ML SYRINGE IVFLUSH ×2 (00:52→07:08)
[2020-10-10 03:34] VITALS: BP 121/53; PULSE 69; RESP 19; TEMP 36.2; O2SAT 94
[2020-10-10] MEDS: Morphine Sulfate 4 MG/ML CARTRIDGE IVPUSH ×4 (03:45→13:19)
[2020-10-10] MEDS: ondansetron HCL 4 MG/2 ML VIAL IVPUSH ×2 (03:45→12:06)
[2020-10-10 07:46] VITALS: BP 123/58; PULSE 71; RESP 18; TEMP 36.7; O2SAT 94
--- NOTE | 2020-10-10 08:14 | MHC.CM.PN ---
DC PLAN IS HOME NO SVCS AT THIS TIME. CM TO CONT. TO FOLLOW.
[2020-10-10] MEDS: oxyCODONE HCl Immed Release 5 MG TABLET 10 MG PO ×2 (09:02→12:03)
[2020-10-10] MEDS: Butalb/Acetamin/Caff 50/325/40 TABLET 2 TAB PO (09:03)
[2020-10-10 11:32] VITALS: BP 124/54; PULSE 65; RESP 18; TEMP 36.5; O2SAT 96
--- NOTE | 2020-10-10 12:44 | P.PNGS_ITS ---
Subjective Subjective Date of Service: 10/10/20 Interval history: Patient had a laparoscopic appendectomy 5 days ago which was uneventful. Patient state over the weekend but she still had pain in her left foot which was pre-existing prior to come to the hospital. Patient has had left foot surgery back in July intake significant amount of narcotics for the foot. Patient is tolerating a diet she denies nausea or vomiting. Abdominal pain is well controlled status post appendectomy. Physical Exam Vital Signs: Vital Signs: Last Vital Signs Temp 97.7 F 10/10/20 11:32 Pulse 65 10/10/20 11:32 Resp 18 10/10/20 11:32 BP 124/54 L 10/10/20 11:32 Pulse Ox 96 10/10/20 11:32 Body Mass Index 19.8 Const: General: cooperative, healthy appearing, comfortable and no acute dis tress GI: Other: Soft nondistended mild appropriate incisional tenderness. Incisions are clean dry intact with Dermabond in place. There is no erythema or drainage. Extrem: Other: No calf tenderness or Homans sign. Left foot boot in place Progress Note: A&P Assessment and plan (1) History of laparoscopic appendectomy: Status: Inactive Assessment and Plan: Patient is postop day 5. Status laparoscopic appendectomy doing well. Patient will be discharged home today. She will follow up with her orthopedic surgeon regarding the foot discomfort that she continues to have for several months. Patient will follow-up with me in the office in 2 weeks time frame for her follow-up appointment status post appendectomy. Fall Risk Details Current Medications: Current Medications Generic Name Dose Route Start Last Admin Trade Name Freq PRN Reason Stop Dose Admin Acetaminophen 650 mg 10/05/20 20:56 Acetaminophen 325 Mg Tablet PO Q4H PRN Fever Acetaminophen/Butalbital/Caffeine 2 tab 10/07/20 07:51 10/10/20 09:03 Butalb/Acetamin/Caff 50/325/40 Tablet PO 2 tab Q4H PRN Administration migraine headaches Diphenhydramine HCl 25 mg 10/05/20 21:02 10/09/20 23:38 Diphenhydramine Hcl 25 Mg Tablet PO 25 mg Q4H PRN Administration itching Morphine Sulfate 2 mg 10/05/20 20:56 Morphine Sulfate 2 Mg/Ml Cartridge IVPUSH Q3H PRN Pain, Moderate (Pain Scale 4-6 Morphine Sulfate 4 mg 10/05/20 21:02 10/10/20 10:21 Morphine Sulfate 4 Mg/Ml Cartridge IVPUSH 4 mg Q3H PRN Administration Pain, Severe (Pain Scale 7-10) Ondansetron HCl 4 mg 10/07/20 22:06 10/10/20 12:06 Ondansetron Hcl 4 Mg/2 Ml Vial IVPUSH 4 mg Q8H PRN Administration Nausea Oxycodone HCl 5 mg 10/05/20 20:56 10/09/20 02:09 Oxycodone Hcl Immed Release 5 Mg Tablet PO 5 mg Q3H PRN Administration Pain, Moderate (Pain Scale 4-6 Oxycodone HCl 10 mg 10/05/20 20:56 10/10/20 12:03 Oxycodone Hcl Immed Release 5 Mg Tablet PO 10 mg Q3H PRN Administration Pain, Severe (Pain Scale 7-10) Sodium Chloride 3 ml 10/06/20 00:00 10/10/20 07:08 0.9 % Sodium Chloride Flush 3 Ml Syringe IVFLUSH 3 ml QSHIFT JACK Administration Trazodone HCl 300 mg 10/08/20 21:00 10/09/20 20:34 Trazodone Hcl 100 Mg Tablet PO 300 mg BEDTIME JACK Administration Time Spent With Patient Time: Total time spent is greater than 50% in coordination of care (as documented) at patient's floor/unit and/or counseling patient: Time with patient: less than 15 minutes
== END 2020-10-10 15:08 | disposition home or self-care (01) | DRG 234 ==
LOC: HO.ED 21:06 → HO.EDOVER 21:43 → HO.S3 10-06 16:16
PROVIDERS: Nurse Practitioner Primary Care; Admitting Provider Surgery; Emergency Provider Emergency Medicine; PCP Family Medicine; Visit Provider Surgery
PROC: 0DTJ4ZZ Resection of Appendix, Percutaneous Endoscopic Approach (ICD-10-PCS; CPT 44970; principal; 2020-10-06 12:00)
DX: K35.80 Unspecified acute appendicitis (principal); M79.672 Pain in left foot; Z20.822 Contact with and (suspected) exposure to COVID-19; Z79.899 Other long term (current) drug therapy
CPT/HCPCS: 36415; 74177; 80053; 81003; 83690; 85025; 85610; 85730; 86850; 86900; 86901; 87635; 88304; 93005; 96365; 96367; 96375; 99024; 99285; J0131; J0696; J1100; J1170; J1885; J2250; J2270; J2405; J2543; J3010; Q0163; Q9967

== ENCOUNTER → 2020-10-26 10:48 | Outpatient (BNVA) | payer OTHER, SELFPAY | PROVIDERS: PCP Family Medicine; Visit Provider Surgery | DX: Z90.49 Acquired absence of other specified parts of digestive tract (principal) | CPT/HCPCS: 99212 ==

== ENCOUNTER 2020-11-27 13:29 | Outpatient (REF) | payer OTHER, SELFPAY ==
--- NOTE | 2020-11-27 13:45 | MHC.AU.HAS ---
Hearing Aid Evaluation Date of Visit: 11/27/20 Flume Maker Used: Not Applicable Historical Information: Description of Hearing: Right Ear - Moderate sensorineural hearing loss through all frequencies with the exception of normal hearing threshold at 4000 Hz. Left Ear - Normal hearing thresholds through all frequencies. Current personal amplification information, if applicable: None Summary: Due to the significant blocked sensation for the right ear due to the fluctuating hearing loss in that ear as well as difficulties with localizing sounds, Dr. Wall has provided medical clearance for a right hearing aid as part of the remediation process. Yo experiences reduced manual dexterity related to arthritis so a rechargeable [id number]-[id number] style hearing aid is advised. 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
== END 2020-11-27 13:30 | disposition home or self-care (01) ==
LOC: HO.HAP 13:29
PROVIDERS: Visit Provider Otolaryngology
DX: Z46.1 Encounter for fitting and adjustment of hearing aid (principal); H90.41 Sensorineural hearing loss, unilateral, right ear, with unrestricted hearing on the contralateral side; H93.11 Tinnitus, right ear
CPT/HCPCS: 92590; V5275

== ENCOUNTER 2020-12-12 12:13 | Outpatient (REF) | payer OTHER, SELFPAY | END 2020-12-12 12:14 | disposition home or self-care (01) | LOC: HO.HAP 12:13 | PROVIDERS: Visit Provider Otolaryngology | DX: Z46.1 Encounter for fitting and adjustment of hearing aid (principal); H90.41 Sensorineural hearing loss, unilateral, right ear, with unrestricted hearing on the contralateral side; H93.11 Tinnitus, right ear | CPT/HCPCS: 92594; V5011; V5020; V5241; V5255 ==

== ENCOUNTER 2020-12-28 12:07 | Outpatient (REF) | payer OTHER, SELFPAY | END 2020-12-28 12:08 | disposition home or self-care (01) | LOC: HO.HAP 12:07 | PROVIDERS: Visit Provider Family Medicine | DX: Z13.89 Encounter for screening for other disorder (principal) ==

== ENCOUNTER 2021-01-11 11:25 | Day surgery (SDC) | payer OTHER, SELFPAY ==
[2021-01-05 15:06] VITALS: BMI 20.9
--- NOTE | 2021-01-10 11:00 | P.CONAN_ITS ---
Documented by User: Edwige Pappas 01/10/21 11:04 HPI - Anesthesia Eval Consult details Narrative: 65yo F for Upper Endoscopy with Balloon Dilitation EGD and Colonoscopy with TIVA 08/2020 Daily opioids PMFSH Active Problems Active Problems: All Active Problems (Updated 01/05/21 @ 15:06 by Perla Napoles) Cellulitis (Acute) History of appendectomy (Acute) Past Medical History Medical History Anxiety Arthritis Back pain Back pain Borderline personality disorder Constipation by delayed colonic transit Foot pain, left Migraine headache Opiate abuse, continuous Family History Family History Mother Heart disease Father Heart disease Sister No problems noted. Son No problems noted. Son No problems noted. Surgical History Surgical History H/O hemorrhoidectomy History of section, classical History of esophagogastroduodenoscopy (EGD) History of hysterectomy History of laparoscopic appendectomy History of lumbar discectomy History of pubovaginal sling Hx of colonoscopy Status post left foot surgery Social History Social History Household Members: Spouse Housing: House Alcohol intake: never Smoking Status: Current every day smoker Tobacco Type: Cigarette Cigarettes Per Day: 3 Second Hand Smoke Exposure: No Use of substances other than those prescribed or required for medical reasons: No Are you DNR?: No Advance Directives: No Advance Directives Information Provided: No Advance Directives on File: No Meds Allergies Allergy/AdvReac Type Severity Reaction Status Date / Time sumatriptan [From IMITREX] Allergy Unknown MAKES Verified 10/26/20 11:31 MIGRAINES WORSE Home Medications Medication Instructions Recorded Confirmed Last Taken Type Belbuca 600 mcg BUCCAL Q12H 08/31/20 01/05/21 01/11/21 History rjvhbbznqs-ensablvzujpjr-gmea 1 tab PO BID PRN 08/31/20 01/05/21 01/11/21 History morphine 1 tab PO TID PRN 08/31/20 01/05/21 Unknown History prochlorperazine maleate 25 mg PO TID PRN 08/31/20 10/26/20 Unknown History [Compazine] rosuvastatin 1 tab PO DAILY 08/31/20 01/05/21 Unknown History topiramate [Topamax] 100 mg PO TID 08/31/20 01/05/21 01/11/21 History trazodone 300 mg PO BEDTIME 08/31/20 01/05/21 Unknown History zolmitriptan [Zomig] 5 mg PO DAILY PRN 08/31/20 01/05/21 Unknown History baclofen 20 mg tablet 20 mg PO TID 09/29/20 01/05/21 01/11/21 History cholecalciferol (vitamin D3) 125 125 mcg PO DAILY 09/29/20 01/05/21 Unknown History mcg (5,000 unit) capsule lidocaine 5 % topical patch 3 patch TOPICAL DAILY 09/29/20 01/05/21 Unknown History lorazepam 1 mg tablet 1 mg PO DAILY PRN 09/29/20 01/05/21 Unknown History prochlorperazine 25 mg rectal 25 mg [place] BID PRN 09/29/20 01/05/21 Unknown History suppository sennosides 8.6 mg tablet 8.6 mg PO TIDWMEAL 09/29/20 01/05/21 Unknown History celecoxib [Celebrex] 200 mg PO DAILY 10/07/20 01/05/21 Unknown History Exam Exam Date and Time: January 10, 2021 1100 Height,Weight and Vital Signs: Height 5 ft 3 in Weight 53.524 kg Assessment and Plan Assessment Anesthesia Assessment: Chart Reviewed Documented by User: Patrica Hernandez 01/11/21 12:16 [facility] Past Medical History Medical History Anxiety Arthritis Back pain Back pain Borderline personality disorder Constipation by delayed colonic transit Foot pain, left Migraine headache Opiate abuse, continuous Family History Family History Mother Heart disease Father Heart disease Sister No problems noted. Son No problems noted. Son No problems noted. Surgical History Surgical History H/O hemorrhoidectomy History of section, classical History of esophagogastroduodenoscopy (EGD) History of hysterectomy History of laparoscopic appendectomy History of lumbar discectomy History of pubovaginal sling Hx of colonoscopy Status post left foot surgery Social History Social History Household Members: Spouse Housing: House Alcohol intake: never Smoking Status: Current every day smoker Tobacco Type: Cigarette Cigarettes Per Day: 3 Second Hand Smoke Exposure: No Use of substances other than those prescribed or required for medical reasons: No Are you DNR?: No Advance Directives: No Advance Directives Information Provided: No Advance Directives on File: No Meds Allergies Allergy/AdvReac Type Severity Reaction Status Date / Time sumatriptan [From IMITREX] Allergy Unknown MAKES Verified 10/26/20 11:31 MIGRAINES WORSE Home Medications Medication Instructions Recorded Confirmed Last Taken Type Belbuca 600 mcg BUCCAL Q12H 08/31/20 01/05/21 01/11/21 History zclrlmbreg-iopleymqruzks-ncdq 1 tab PO BID PRN 08/31/20 01/05/21 01/11/21 History morphine 1 tab PO TID PRN 08/31/20 01/05/21 Unknown History prochlorperazine maleate 25 mg PO TID PRN 08/31/20 10/26/20 Unknown History [Compazine] rosuvastatin 1 tab PO DAILY 08/31/20 01/05/21 Unknown History topiramate [Topamax] 100 mg PO TID 08/31/20 01/05/21 01/11/21 History trazodone 300 mg PO BEDTIME 08/31/20 01/05/21 Unknown History zolmitriptan [Zomig] 5 mg PO DAILY PRN 08/31/20 01/05/21 Unknown History baclofen 20 mg tablet 20 mg PO TID 09/29/20 01/05/21 01/11/21 History cholecalciferol (vitamin D3) 125 125 mcg PO DAILY 09/29/20 01/05/21 Unknown History mcg (5,000 unit) capsule lidocaine 5 % topical patch 3 patch TOPICAL DAILY 09/29/20 01/05/21 Unknown History lorazepam 1 mg tablet 1 mg PO DAILY PRN 09/29/20 01/05/21 Unknown History prochlorperazine 25 mg rectal 25 mg [place] BID PRN 09/29/20 01/05/21 Unknown History suppository sennosides 8.6 mg tablet 8.6 mg PO TIDWMEAL 09/29/20 01/05/21 Unknown History celecoxib [Celebrex] 200 mg PO DAILY 10/07/20 01/05/21 Unknown History Exam Airway Mallampati Class: II TM Dist: >3cm Neck ROM: Full Loose/Missing/Broken Teeth: Yes, Upper and Lower Heart: RRR Lungs: CTA Assessment and Plan Assessment Anesthesia Assessment: Anesthesia Plan Discussed Final Anesthetic Review NPO: Yes ASA Class: II Final Preanesthetic Review: Meds/Allgs Chart Reviewed, Consent Obtained/Reviewed and Anes Risks/Benef Reviewed Patient Risk: Low Procedure Risk: Intermediate Anesthetic Plan Anesthetic Plan: MAC: Disposition: Standard PACU
[2021-01-11 11:37] VITALS: BP 137/70; PULSE 68; RESP 18; TEMP 36.6; O2SAT 98
[2021-01-11] MEDS: Lactated Ringers 1,000 ML 100 ML IVCONT (11:55)
--- NOTE | 2021-01-11 12:25 | MHC.SHP ---
Pre-Procedural Eval Section B Chief Complaint: Dysphagia Relevant Family History (Specify if Yes): No Relevant Social History: Tobacco Use Present Medications: see Short Stay Collaborative assessment Medical History: Significant History (Anxiety Arthritis Back pain Back pain Borderline personality disorder Constipation by delayed colonic transit Foot pain, left Migraine headache Opiate abuse, continuous) History of Previous Operations: Relevant previous surgery/procedure and date(s) (H/O hemorrhoidectomy History of section, classical History of esophagogastroduodenoscopy (EGD) History of hysterectomy History of laparoscopic appendectomy History of lumbar discectomy History of pubovaginal sling Hx of colonoscopy Status post left foot surgery) Allergies: Allergies Allergy/AdvReac Type Severity Reaction Status Date / Time sumatriptan [From IMITREX] Allergy Unknown MAKES Verified 10/26/20 11:31 MIGRAINES WORSE Review of Systems Sugical H&P ROS: Negative: Constitution, Cardiovascular, Respiratory, Neurological, Psychiatric, Hem-Onc, Allergic/Immunologic, Gastrointestinal, Genitourinary, Musculoskeletal, Integumentary, Endocrine and Eyes/Ears/Nose/Throat Exam Surgical H&P Exam: Normal: HEENT, Normal: Heart, Normal: Lungs, Normal: Extremities, Normal: Abdomen, Normal: Skin and Normal: Neurological Plan Diagnosis/Plan: Unchanged I have reviewed the history and physical and performed a pertinent physical examination on my patient. No changes have occurred unless specified. EGF with bx and balloon dilation.
--- NOTE | 2021-01-11 12:50 | PM.OP ---
Brief Operative Note Date of Service: 01/11/21 Pre-op diagnosis: dysphagia Post-op diagnosis: same Procedure: see op note Surgeon: Marek López MD Anesthesia: MAC Was an Therapist Radiation used for this Procedure?: No Estimated blood loss (mL): 0 Condition: stable Disposition: PACU
--- NOTE | 2021-01-11 12:53 | W.PM.OPN ---
Operative Note Operative Note Date of Service: 01/11/21 Narrative: Procedure Description: EGD FLEXIBLE TRANSORAL UPPER GASTROINTESTINAL ENDOSCOPY UPPER ENDOSCOPY Consent: Indications for the procedure and potential complications of bleeding, perforation, reaction to medications and missed diagnosis were discussed with the patient and informed consent was obtained. Instrument: Olympus GIF H 190 J mid size upper endoscope Monitoring: Vital signs and clinical assessment, continuous EKG monitoring, Pulse oximetry, Carbon Dioxide monitoring and blood pressure monitoring were done throughout the procedure. Procedure: The patient was placed in the left lateral decubitis position and pre-procedure medications were administered and a bite block was placed. The endoscope was inserted into the mouth and advanced under direct vision to the third part of duodenum. A careful inspection was made as the upper endoscope was withdrawn including a retroflexed examination of the proximal stomach; Findings and interventions are described below. Findings: Larynx:normal Esophagus: GE junction at 40 cm, diaphragm hiatus at 40 cm, mild esophagitis bx taken and ballon dilation done of GEJ to 20 mm with small tear seen. Proximal esophagus at UES aslo stretched to 19 mm. Stomach: Mild erythema, seemed to be paucity of gastric movement. Grade 2 flap valve on retroflexed examination of the cardia. Duodenum: Normal Impression/Findings: mild esophagitis possible gastroparesis PLAN: regular diet as tolerated today if having any early satiety, epigastric pain then GES
[2021-01-11 12:57] VITALS: BP 131/53; PULSE 55; RESP 12; TEMP 36.5; O2SAT 97
[2021-01-11 13:12] VITALS: BP 135/41; PULSE 56; RESP 17; TEMP 36.5; O2SAT 98
== END 2021-01-11 14:15 | disposition home or self-care (01) ==
PROVIDERS: PCP Family Medicine; Visit Provider Internal Medicine Gastroenterology
PROC: (CPT 43249; principal; 2021-01-11 13:40)
DX: R13.10 Dysphagia, unspecified (principal); K20.80 Other esophagitis without bleeding; K44.9 Diaphragmatic hernia without obstruction or gangrene; Z90.49 Acquired absence of other specified parts of digestive tract; F41.9 Anxiety disorder, unspecified; F60.3 Borderline personality disorder; F11.10 Opioid abuse, uncomplicated; F17.210 Nicotine dependence, cigarettes, uncomplicated; Z99.89 Dependence on other enabling machines and devices; Z88.8 Allergy status to other drugs, medicaments and biological substances
CPT/HCPCS: 43249; 43239; 88305; C1726

== ENCOUNTER 2021-01-26 09:39 | Outpatient (REF) | payer OTHER, SELFPAY | END 2021-01-26 09:40 | disposition home or self-care (01) | LOC: HO.HAP 09:39 | PROVIDERS: Visit Provider Otolaryngology | DX: Z13.89 Encounter for screening for other disorder (principal) ==

== ENCOUNTER 2021-02-23 11:59 | Outpatient (REF) | payer OTHER, SELFPAY | END 2021-02-23 12:00 | disposition home or self-care (01) | LOC: HO.HAP 11:59 | PROVIDERS: Visit Provider Otolaryngology | DX: Z13.89 Encounter for screening for other disorder (principal) ==

== ENCOUNTER 2021-04-18 12:41 | Outpatient (RCR) | payer OTHER, SELFPAY | END 2021-04-24 15:10 | disposition home or self-care (01) | LOC: HO.WCC 12:41 | PROVIDERS: Visit Provider Physician Assistant | DX: S91.112D Laceration without foreign body of left great toe without damage to nail, subsequent encounter (principal); Z98.1 Arthrodesis status; B37.2 Candidiasis of skin and nail | CPT/HCPCS: 99212 ==

== ENCOUNTER → 2021-07-24 11:51 | Outpatient (BNVA) | payer OTHER, SELFPAY | PROVIDERS: PCP Family Medicine; Visit Provider Internal Medicine Gastroenterology ==

== ENCOUNTER 2021-08-29 10:30 | Day surgery (SDC) | payer OTHER, SELFPAY ==
[2021-08-22 14:17] VITALS: BMI 19.5
--- NOTE | 2021-08-27 14:04 | P.CONAN_ITS ---
Documented by User: Edwige Pappsa NP 08/27/21 14:05 HPI - Anesthesia Eval Consult details Narrative: 65yo F for Upper Endoscopy with Balloon Dilitation s/p same 01/2021 with TIVA PMFSH Active Problems Active Problems: All Active Problems (Updated 07/24/21 @ 12:24 by Marek López MD) Dysphagia (Acute) Constipation by delayed colonic transit (Acute) Cellulitis (Acute) History of appendectomy (Acute) Past Medical History Medical History Anxiety Arthritis Back pain Back pain Borderline personality disorder Constipation by delayed colonic transit Foot pain, left Migraine headache Opiate abuse, continuous Family History Family History Mother Heart disease Father Heart disease Sister No problems noted. Son No problems noted. Son No problems noted. 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/week) Alcohol intake: never Patient Tobacco Use Status: Current everyday Tobacco user Tobacco use type: Cigarette Cigarettes Per Day: 2 Second Hand Smoke Exposure: No Use of substances other than those prescribed or required for medical reasons: No Are you DNR?: No Advance Directives: No (will bring dos) Advance Directives Information Provided: No Advance Directives on File: No Recently lost weight without trying: No Meds Allergies Allergy/AdvReac Type Severity Reaction Status Date / Time sumatriptan [From IMITREX] Allergy Unknown MAKES Verified 08/22/21 14:11 MIGRAINES WORSE Home Medications Medication Instructions Recorded Confirmed Last Taken Type buprenorphine HCl 600 mcg buccal 600 mcg BUCCAL Q12H 08/31/20 08/22/21 08/29/21 04:00 History film (Belbuca) muzlqfrmke-rngfzuszcluwg-hiloannx 1 tab PO BID PRN 08/31/20 08/22/21 08/29/21 04:00 History 50 mg-325 mg-40 mg tablet morphine 15 mg immediate release 1 tab PO TID PRN 08/31/20 08/22/21 08/29/21 04:00 History tablet trazodone 300 mg tablet 300 mg PO BEDTIME 08/31/20 08/22/21 Unknown History zolmitriptan 5 mg tablet (Zomig) 5 mg PO DAILY PRN 08/31/20 08/22/21 Unknown History baclofen 20 mg tablet 20 mg PO TID PRN 09/29/20 08/22/21 01/11/21 History cholecalciferol (vitamin D3) 125 125 mcg PO DAILY 09/29/20 08/22/21 Unknown History mcg (5,000 unit) capsule lidocaine 5 % topical patch 3 patch TOPICAL DAILY 09/29/20 08/22/21 Unknown History lorazepam 1 mg tablet 1 mg PO DAILY PRN 09/29/20 08/22/21 Unknown History prochlorperazine 25 mg rectal 25 mg [place] BID PRN 09/29/20 08/22/21 Unknown History suppository sennosides 8.6 mg tablet 8.6 mg PO TIDWMEAL 09/29/20 08/22/21 Unknown History celecoxib 200 mg capsule (Celebrex) 200 mg PO DAILY 10/07/20 08/22/21 Unknown History acetaminophen 500 mg tablet 1,000 mg PO Q6-8H PRN 07/24/21 08/22/21 Unknown History methylnaltrexone 150 mg tablet 450 mg PO QAM PRN 08/22/21 08/22/21 Unknown History Exam Exam Date and Time: August 27, 2021 1404 Height,Weight and Vital Signs: Height 5 ft 3 in Weight 49.895 kg Assessment and Plan Assessment Anesthesia Assessment: Chart Reviewed Documented by User: Patrica Hernandez MD 08/29/21 12:44 PMFSH Past Medical History Medical History Anxiety Arthritis Back pain Back pain Borderline personality disorder Constipation by delayed colonic transit Foot pain, left Migraine headache Opiate abuse, continuous Family History Family History Mother Heart disease Father Heart disease Sister No problems noted. Son No problems noted. Son No problems noted. 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) Alcohol intake: never Patient Tobacco Use Status: Current everyday Tobacco user Tobacco use type: Cigarette Cigarettes Per Day: 2 Second Hand Smoke Exposure: No Use of substances other than those prescribed or required for medical reasons: No Are you DNR?: No Advance Directives: No (will bring dos) Advance Directives Information Provided: No Advance Directives on File: No Recently lost weight without trying: No Meds Allergies Allergy/AdvReac Type Severity Reaction Status Date / Time sumatriptan [From IMITREX] Allergy Unknown MAKES Verified 08/22/21 14:11 MIGRAINES WORSE Home Medications Medication Instructions Recorded Confirmed Last Taken Type buprenorphine HCl 600 mcg buccal 600 mcg BUCCAL Q12H 08/31/20 08/22/21 08/29/21 04:00 History film (Belbuca) [id number]-wlzixvkkrfwvm-jjugbnhi 1 tab PO BID PRN 08/31/20 08/22/21 08/29/21 04:00 History 50 mg-325 mg-40 mg tablet morphine 15 mg immediate release 1 tab PO TID PRN 08/31/20 08/22/21 08/29/21 04:00 History tablet trazodone 300 mg tablet 300 mg PO BEDTIME 08/31/20 08/22/21 Unknown History zolmitriptan 5 mg tablet (Zomig) 5 mg PO DAILY PRN 08/31/20 08/22/21 Unknown History baclofen 20 mg tablet 20 mg PO TID PRN 09/29/20 08/22/21 01/11/21 History cholecalciferol (vitamin D3) 125 125 mcg PO DAILY 09/29/20 08/22/21 Unknown History mcg (5,000 unit) capsule lidocaine 5 % topical patch 3 patch TOPICAL DAILY 09/29/20 08/22/21 Unknown History lorazepam 1 mg tablet 1 mg PO DAILY PRN 09/29/20 08/22/21 Unknown History prochlorperazine 25 mg rectal 25 mg [place] BID PRN 09/29/20 08/22/21 Unknown History suppository sennosides 8.6 mg tablet 8.6 mg PO TIDWMEAL 09/29/20 08/22/21 Unknown History celecoxib 200 mg capsule (Celebrex) 200 mg PO DAILY 10/07/20 08/22/21 Unknown History acetaminophen 500 mg tablet 1,000 mg PO Q6-8H PRN 07/24/21 08/22/21 Unknown History methylnaltrexone 150 mg tablet 450 mg PO QAM PRN 08/22/21 08/22/21 Unknown History Exam Airway Mallampati Class: II TM Dist: >3cm Neck ROM: Full Partial: Upper and Lower Loose/Missing/Broken Teeth: Yes, Upper and Lower Heart: RRR Lungs: CTA Assessment and Plan Assessment Anesthesia Assessment: Anesthesia Plan Discussed Final Anesthetic Review History of Problems with Anesthesia: No NPO: Yes ASA Class: II Final Preanesthetic Review: Meds/Allgs Chart Reviewed, Consent Obtained/Reviewed and Anes Risks/Benef Reviewed Patient Risk: Low Procedure Risk: Intermediate Anesthetic Plan Anesthetic Plan: MAC: Disposition: Standard PACU
--- NOTE | 2021-08-29 11:17 | MHC.SHP ---
Pre-Procedural Eval Section A Date of Service: 08/29/21 Section B Chief Complaint: dysphagia Relevant Family History (Specify if Yes): No Relevant Social History: Tobacco Use Present Medications: see Short Stay Collaborative assessment Medical History: Significant History (Anxiety Arthritis Back pain Back pain Borderline personality disorder Constipation by delayed colonic transit Foot pain, left Migraine headache Opiate abuse, continuous) History of Previous Operations: Relevant previous surgery/procedure and date(s) (H/O hemorrhoidectomy History of section, classical History of esophagogastroduodenoscopy (EGD) History of hysterectomy History of laparoscopic appendectomy History of lumbar discectomy History of pubovaginal sling Hx of colonoscopy Status post left foot surgery) Allergies: Allergies Allergy/AdvReac Type Severity Reaction Status Date / Time sumatriptan [From IMITREX] Allergy Unknown MAKES Verified 08/22/21 14:11 MIGRAINES WORSE Review of Systems Sugical H&P ROS: Negative: Constitution, Cardiovascular, Respiratory, Neurological, Psychiatric, Hem-Onc, Allergic/Immunologic, Gastrointestinal, Genitourinary, Musculoskeletal, Integumentary, Endocrine and Eyes/Ears/Nose/Throat Exam Surgical H&P Exam: Normal: HEENT, Normal: Heart, Normal: Lungs, Normal: Extremities, Normal: Abdomen, Normal: Skin and Normal: Neurological Plan Diagnosis/Plan: Unchanged I have reviewed the history and physical and performed a pertinent physical examination on my patient. No changes have occurred unless specified.
[2021-08-29 11:34] VITALS: BP 149/62; PULSE 71; RESP 16; TEMP 36.3; O2SAT 96
[2021-08-29] MEDS: Butalb/Acetamin/Caff 50/325/40 TABLET 2 TAB PO (11:43)
[2021-08-29] MEDS: ondansetron HCL 4 MG/2 ML VIAL IVPUSH ×2 (11:54→11:55)
--- NOTE | 2021-08-29 12:34 | P.BOP_ITS ---
Brief Operative Note Date of Service: 08/29/21 Pre-op diagnosis: dysphagia Post-op diagnosis: same Procedure: see op note Surgeon: Marek López MD Anesthesia: MAC Was an Air Conditioner Installer Helper used for this Procedure?: No Estimated blood loss (mL): 0 Condition: stable Disposition: PACU
--- NOTE | 2021-08-29 12:35 | W.PM.OPN ---
Operative Note Operative Note Date of Service: 08/29/21 Narrative: Operative Information Procedure Description: EGD, Colonoscopy Procedure Description: EGD FLEXIBLE TRANSORAL UPPER GASTROINTESTINAL ENDOSCOPY UPPER ENDOSCOPY Consent: Indications for the procedure and potential complications of bleeding, perforation, reaction to medications and missed diagnosis were discussed with the patient and informed consent was obtained. Instrument: Olympus GIF H 190 J mid size upper endoscope Monitoring: Vital signs and clinical assessment, continuous EKG monitoring, Pulse oximetry, Carbon Dioxide monitoring and blood pressure monitoring were done throughout the procedure. Procedure: The patient was placed in the left lateral decubitis position and pre-procedure medications were administered and a bite block was placed. The endoscope was inserted into the mouth and advanced under direct vision to the third part of duodenum. A careful inspection was made as the upper endoscope was withdrawn including a retroflexed examination of the proximal stomach; Findings and interventions are described below. Findings: Larynx:normal Esophagus: GE junction at 40? cm, diaphragm hiatus at 40 cm, LA grade A erosive esophagitis. Ballon dilation done of GEJ in sequential manner from 18-19 then to 20 mm with small tear seen. Proximal esophagus at UES also stretched to 19 mm. Stomach: Patchy erythema with mosaic pattern, bx taken. Grade 2 flap valve on retroflexed examination of the cardia. Duodenum: Normal Intervention: Biopsies as noted above, balloon dilation Impression/Findings: esophagitis gastropathy PLAN: confirm if taking PPI reflux precautions liver US and doppler of portal vein
[2021-08-29 13:13] VITALS: BP 134/64; PULSE 62; RESP 18; TEMP 36.4; O2SAT 100
[2021-08-29 13:28] VITALS: BP 144/64; PULSE 62; RESP 18; TEMP 36.4; O2SAT 97
== END 2021-08-29 14:03 | disposition home or self-care (01) ==
PROVIDERS: PCP Family Medicine; Visit Provider Internal Medicine Gastroenterology
PROC: (CPT 43249; principal; 2021-08-29 12:00)
DX: R13.10 Dysphagia, unspecified (principal); K20.80 Other esophagitis without bleeding; K31.9 Disease of stomach and duodenum, unspecified; K44.9 Diaphragmatic hernia without obstruction or gangrene; K59.01 Slow transit constipation; J44.9 Chronic obstructive pulmonary disease, unspecified; G89.29 Other chronic pain; M25.572 Pain in left ankle and joints of left foot; M54.9 Dorsalgia, unspecified; F11.10 Opioid abuse, uncomplicated; F17.210 Nicotine dependence, cigarettes, uncomplicated; Z79.899 Other long term (current) drug therapy; Z88.8 Allergy status to other drugs, medicaments and biological substances
CPT/HCPCS: 43249; 43239; 88305; 88342; C1726; J2405

== ENCOUNTER → 2021-09-14 11:26 | Outpatient (BNVA) | payer OTHER, SELFPAY | PROVIDERS: PCP Family Medicine; Visit Provider Internal Medicine Gastroenterology ==

== ENCOUNTER 2021-11-15 10:57 | Day surgery (SDC) | payer OTHER, SELFPAY ==
[2021-11-15 11:33] VITALS: BMI 20.9
[2021-11-15 11:39] VITALS: BP 157/76; PULSE 71; RESP 16; TEMP 36.3; O2SAT 100
--- NOTE | 2021-11-15 11:50 | PC.NURSE ---
Patient states she recently filled out a Do Not Resuscitate order. She did not bring this paperwork with her today. Health Care Proxy is her , Joselito Marsh, .
[2021-11-15] MEDS: Lactated Ringers 1,000 ML 50 ML IVCONT (12:47)
--- NOTE | 2021-11-15 12:49 | P.HPSUR_ITS ---
Pre-Procedural Eval Section A Date of Service: 11/15/21 Section B Chief Complaint: transit constipation Details of Present Illness: incomplete evacuation and epigastric pain, occ dysphagia Relevant Family History (Specify if Yes): No Relevant Social History: Tobacco Use Present Medications: see Short Stay Collaborative assessment Medical History: Significant History (Anxiety Arthritis Back pain Back pain Borderline personality disorder Constipation by delayed colonic transit Foot pain, left Migraine headache Opiate abuse, ) History of Previous Operations: Relevant previous surgery/procedure and date(s) (H/O hemorrhoidectomy History of section, classical History of esophagogastroduodenoscopy (EGD) History of hysterectomy History of laparoscopic appendectomy History of lumbar discectomy History of pubovaginal sling Hx of colonoscopy Status post left foot surgery) Allergies: Allergies Allergy/AdvReac Type Severity Reaction Status Date / Time sumatriptan [From IMITREX] Allergy Unknown MAKES Verified 11/15/21 11:42 MIGRAINES WORSE Review of Systems Sugical H&P ROS: Negative: Constitution, Cardiovascular, Respiratory, Neurological, Psychiatric, Hem-Onc, Allergic/Immunologic, Gastrointestinal, Genitourinary, Musculoskeletal, Integumentary, Endocrine and Eyes/Ears/Nose/Throat Exam Surgical H&P Exam: Normal: HEENT, Normal: Heart, Normal: Lungs, Normal: E xtremities, Normal: Abdomen, Normal: Skin and Normal: Neurological Plan Diagnosis/Plan: Unchanged I have reviewed the history and physical and performed a pertinent physical examination on my patient. No changes have occurred unless specified.
[2021-11-15] MEDS: ondansetron HCL 4 MG/2 ML VIAL IVPUSH (13:15)
--- NOTE | 2021-11-15 13:34 | HO.ANESPROP2 ---
HPI - Anesthesia Eval Consult details Narrative: dysphagia and constipation [facility], LAT[facility] Active Problems Active Problems: All Active Problems (Updated 11/09/21 @ 11:23 by Lidia Templeton RN) Cellulitis (Acute) History of appendectomy (Acute) Constipation by delayed colonic transit (Acute) Dysphagia (Acute) Gastropathy (Acute) Past Medical History Medical History (Updated 11/09/21 @ 11:23 by Lidia Templeton RN) Anxiety Arthritis Back pain Borderline personality disorder Constipation by delayed colonic transit Foot pain, left Migraine headache Opiate abuse, continuous Family History Family History Mother Heart disease Father Heart disease Sister No problems noted. Son No problems noted. Son No problems noted. Family history of problems with anesthesia: No Surgical History Surgical History (Updated 11/09/21 @ 11:51 by Lidia Templeton RN) H/O hemorrhoidectomy History of section, classical History of esophagogastroduodenoscopy (EGD) History of hysterectomy History of laparoscopic appendectomy History of laparoscopic appendectomy History of lumbar discectomy History of pubovaginal sling Hx of colonoscopy Status post left foot surgery History of Problems with Anesthesia: No Social History Social History Household Members: Spouse Housing: House Are you a primary critical care physician assistant to a significant other at home: No Do you presently have visiting nurse or other home services: Yes ([employer] 3 hours/week) Alcohol intake: never Patient Tobacco Use Status: Current everyday Tobacco user Tobacco use type: Cigarette Cigarettes Per Day: 4 Years Smoked: 6 Smoked in Last 30 Days: Yes Second Hand Smoke Exposure: No Use of substances other than those prescribed or required for medical reasons: No Are you DNR?: Yes Advance Directives: No Advance Directives Information Provided: Yes Meds Allergies Allergy/AdvReac Type Severity Reaction Status Date / Time sumatriptan [From IMITREX] Allergy Unknown MAKES Verified 11/15/21 11:42 MIGRAINES WORSE Active Medications: Current Medications Lactated Ringer's (Lr) 1,000 mls @ 50 mls/hr IVCONT .Q20H JACK Last Admin: 11/15/21 12:47 Dose: 50 mls/hr Documented by: Home Medications Medication Instructions Recorded Confirmed Last Taken Type buprenorphine HCl 600 mcg buccal 600 mcg BUCCAL Q12H 08/31/20 11/09/21 11/15/21 04:00 History film ([place]) [id number]-[id number] 1 tab PO BID PRN 08/31/20 11/09/21 11/15/21 04:00 History 50 mg-325 mg-40 mg tablet morphine 15 mg immediate release 1 tab PO TID PRN 08/31/20 11/09/21 11/15/21 04:00 History tablet trazodone 300 mg tablet 300 mg PO BEDTIME 08/31/20 11/09/21 Unknown History zolmitriptan 5 mg tablet (Zomig) 5 mg PO DAILY PRN 08/31/20 11/09/21 Unknown History baclofen 20 mg tablet 20 mg PO TID PRN 09/29/20 11/09/21 01/11/21 History cholecalciferol (vitamin D3) 125 125 mcg PO DAILY 09/29/20 11/09/21 Unknown History mcg (5,000 unit) capsule lidocaine 5 % topical patch 3 patch TOPICAL DAILY 09/29/20 11/09/21 11/15/21 04:00 History lorazepam 1 mg tablet 1 mg PO DAILY PRN 09/29/20 11/09/21 11/15/21 04:00 History prochlorperazine 25 mg rectal 25 mg OK BID PRN 09/29/20 11/09/21 Unknown History suppository sennosides 8.6 mg tablet 8.6 mg PO TIDWMEAL 09/29/20 11/09/21 Unknown History celecoxib 200 mg capsule (Celebrex) 200 mg PO DAILY 10/07/20 11/09/21 Unknown History acetaminophen 500 mg tablet 1,000 mg PO Q6-8H PRN 07/24/21 11/09/21 Unknown History methylnaltrexone 150 mg tablet 450 mg PO QAM PRN 08/22/21 11/09/21 Unknown History ibuprofen 800 mg tablet 1 tab PO TID PRN 11/15/21 11/15/21 11/15/21 03:00 History Exam Exam Date and Time: November 15, 2021 1334 Height,Weight and Vital Signs: Height 5 ft 3 in Weight 53.524 kg Last Vital Signs Temp 97.4 F 11/15/21 11:39 Pulse 71 11/15/21 11:39 Resp 16 11/15/21 11:39 BP 157/76 H 11/15/21 11:39 Pulse Ox 100 11/15/21 11:39 Airway Mallampati Class: II TM Dist: >3cm Neck ROM: Full Partial: Upper and Lower Loose/Missing/Broken Teeth: Yes Heart: [id number] Lungs: cta b/l Assessment and Plan Assessment Anesthesia Assessment: Anesthesia Plan Discussed and Chart Reviewed Final Anesthetic Review Family History of Problems with Anesthesia: No History of Problems with Anesthesia: No NPO: Yes ASA Class: III Final Preanesthetic Review: No Changes in Pt Med Stat, Meds/Allgs Chart Reviewed, Consent Obtained/Reviewed and Anes Risks/Benef Reviewed Patient Risk: Intermediate Procedure Risk: Intermediate Assessment/Block/Sedation in SS: Assess/Block/Sedation-SS Anesthetic Plan Anesthetic Plan: MAC: and Agree w/ Assess. and Plan Disposition: Standard PACU
--- NOTE | 2021-11-15 14:28 | P.BOP_ITS ---
Brief Operative Note Date of Service: 11/15/21 Pre-op diagnosis: dysphagia, incomplete evacuation Post-op diagnosis: same Procedure: see op note Surgeon: Marek López MD Anesthesia: MAC Was an Forensic Photographer used for this Procedure?: No Estimated blood loss (mL): 0 Condition: stable Disposition: PACU
--- NOTE | 2021-11-15 14:28 | W.PM.OPN ---
Operative Note Operative Note Date of Service: 11/15/21 Narrative: Operative Information Procedure Description: EGD, Colonoscopy FLEXIBLE TRANSORAL UPPER GASTROINTESTINAL ENDOSCOPY AND COLONOSCOPY PROCEDURE NOTE UPPER ENDOSCOPY Consent: Indications for the procedure and potential complications of bleeding, perforation, reaction to medications and missed diagnosis were discussed with the patient and informed consent was obtained. Instrument: Olympus GIF H 190 J mid size upper endoscope Monitoring: Vital signs and clinical assessment, continuous EKG monitoring, Pulse oximetry, Carbon Dioxide monitoring and blood pressure monitoring were done throughout the procedure. Procedure: The patient was placed in the left lateral decubitis position and pre-procedure medications were administered and a bite block was placed. The endoscope was inserted into the mouth and advanced under direct vision to the third part of duodenum. A careful inspection was made as the upper endoscope was withdrawn including a retroflexed examination of the proximal stomach; Findings and interventions are described below. Findings: Larynx:normal Esophagus: GE junction at 40? cm, diaphragm hiatus at 40 cm, mild erythema and nodularity, bx taken.? Ballon dilation done of GEJ in sequential manner from 18-19 then to 20 mm. Proximal esophagus at UES also stretched to 19 mm. Stomach: Patchy erythema with bile acid noted, bx taken. Grade 2 flap valve on retroflexed examination of the cardia. Duodenum: erosive duodentis in bulb with few erosions noted and erythema Intervention: Biopsies as noted above, balloon dilation COLONOSCOPY Instrument: Olympus variable stiffness pediatric scope 190L Colonoscopy Monitoring: Vital signs and clinical assessment, continuous EKG monitoring, Pulse oximetry, Carbon Dioxide monitoring and blood pressure monitoring were done throughout the procedure. Colon withdrawal time was 18 minutes. Procedure: The patient was placed in the left lateral decubitis position and pre-procedure medications were administered. After a digital rectal examination of the ano-rectum, the video colonoscope was inserted into the rectum and advanced through the colon to the cecum/TI. The colonoscope was slowly withdrawn in a retrograde panoramic fashion and the colon mucosa was carefully examined including a retroflexed view of the rectum. Findings and interventions are described below. Procedure Difficulty: easy Findings: Terminal Ileum-normal Cecum:normal Ascending Colon: normal Transverse Colon -normal Descending Colon: x 3 sessile polyps noted measuring 7-9 mm. x 2 removed with cold snare and one with forceps Sigmoid Colon: few diverticula seen Rectum: Retroflexion with small internal hemorrhoids, grade I, 8-9 mm sessile polyp removed with codl snare Anorectum - normal Colon preparation: [place] Bowel Preparation Scale Right colon; 2 Transverse colon: 3 Left colon; 3 (0 = Unprepared colon segment with mucosa not seen due to solid stool that cannot be cleared. 1 = Portion of mucosa of the colon segment seen, but other areas of the colon segment not well seen due to staining, residual stool and/or opaque liquid. 2 = Minor amount of residual staining, small fragments of stool and/or opaque liquid, but mucosa of colon segment seen well. 3 = Entire mucosa of colon segment seen well with no residual staining, small fragments of stool or opaque liquid) Impression and Post Procedure Diagnosis: Endoscopy Findings: gastropathy, possible bile acid related esophagitis erosive duodenitis Colonoscopy Findings: polyps internal hemorrhoids diverticular disease Plan: Await Pathology results Repeat Colonoscopy in 3-5 years or earlier if clinically indicated High fiber diet leaflet avoid straining at stool, epsom salts and sitz bath, anusol supps or cream add ursodiol and see if helps symptoms Above findings were reviewed with the patient and relevant handouts were provided if indicated.
[2021-11-15 14:34] VITALS: BP 156/75; PULSE 73; RESP 16; TEMP 36.2; O2SAT 98
[2021-11-15 14:49] VITALS: BP 171/75; PULSE 68; RESP 18; TEMP 36.2; O2SAT 99
== END 2021-11-15 15:48 | disposition home or self-care (01) ==
PROVIDERS: PCP Family Medicine; Visit Provider Internal Medicine Gastroenterology
PROC: (CPT 45385; principal; 2021-11-15 13:00)
DX: R19.4 Change in bowel habit (principal); D12.4 Benign neoplasm of descending colon; K62.1 Rectal polyp; K57.30 Diverticulosis of large intestine without perforation or abscess without bleeding; K64.0 First degree hemorrhoids; K59.01 Slow transit constipation; R13.10 Dysphagia, unspecified; K31.9 Disease of stomach and duodenum, unspecified; K29.80 Duodenitis without bleeding; K20.90 Esophagitis, unspecified without bleeding; K29.60 Other gastritis without bleeding; K44.9 Diaphragmatic hernia without obstruction or gangrene; J44.9 Chronic obstructive pulmonary disease, unspecified; F41.1 Generalized anxiety disorder; F60.3 Borderline personality disorder; G43.909 Migraine, unspecified, not intractable, without status migrainosus; M54.9 Dorsalgia, unspecified; Z98.890 Other specified postprocedural states; Z79.899 Other long term (current) drug therapy; F11.10 Opioid abuse, uncomplicated; Z88.8 Allergy status to other drugs, medicaments and biological substances
CPT/HCPCS: 45385; 45380; 43249; 43239; 88305; 88342; J2405

== ENCOUNTER 2021-11-18 18:03 | Emergency (ER) | payer OTHER, SELFPAY ==
--- NOTE | ~2021-11-18 | CT_ITS ---
EXAMINATION: CT CHEST, ABDOMEN AND PELVIS WITH CONTRAST. CLINICAL INFORMATION: Esophageal pain status post dilatation. 09/27/2020 CT scan Post colonoscopy, ? perf . COMPARISON: No pertinent prior studies are available for comparison. TECHNIQUE: Multidetector volumetric imaging was performed from the thoracic inlet through the pubic symphysis following administration of 100 mL Omnipaque 300 intravenous contrast. Sagittal and coronal reformatted images were obtained on the technologist's workstation. This CT examination was performed using dose optimization techniques as appropriate, variously including the following: *Automated exposure control *Adjustment of mA and/or kV according to patient size (this includes techniques or standardized protocols for targeted exams where dose is matched to indication/reason for exam; i.e. extremities or head) *Use of iterative reconstruction technique DLP: 666 mGy-cm FINDINGS: CHEST: Lung: Minimal dependent atelectasis. No dense consolidation. Central airways unremarkable. No pneumothorax. Mediastinum: No evidence for mediastinal gas or irregularity. Minimal contrast air-fluid level seen in the distal esophagus could reflect component of reflux but no focal esophageal wall thickening or paraesophageal inflammatory change. Pericardium/Pleura: No significant effusion. No pleural mass or thickening. Chest Wall/Axilla: Unremarkable. ABDOMEN/PELVIS: Peritoneal Space:No significant free air or free fluid identified. Liver, Gallbladder, Biliary Tree: The liver is normal in size, shape, and attenuation. No focal hepatic lesion or biliary ductal dilatation is present. The gallbladder is unremarkable with no evidence of radiopaque gallstones, gallbladder wall thickening, or obvious pericholecystic inflammatory changes. Pancreas: Unremarkable. Spleen: Unremarkable. Adrenal Glands: Unremarkable. Kidneys and Ureters: Tiny low-attenuation probable cysts within the kidneys. Otherwise the kidneys are normal in size, shape, and attenuation. No hydronephrosis, hydroureter, or calculi seen. No perinephric stranding. Bladder: Unremarkable. Gastrointestinal Tract: Few scattered colonic diverticula are seen in the colon. No colonic wall thickening or pericolonic inflammatory change to suggest diverticulitis. Appendix not visualized and presumed surgically absent. Small bowel is unremarkable. I do not appreciate any significant free air or free fluid Abdominal Wall: No significant hernia is appreciated. Lymphovascular Structures: Vascular calcification within the aorta iliac system. No bulky retrocrural celia or mesenteric adenopathy. Pelvic Viscera: Presumably surgically absent Osseus Structures: Mild degenerative changes. CT/CT abdomen pelvis w con IMPRESSION: I do not appreciate any significant free air or free fluid. No obstructive changes to the bowel. No acute intra-abdominal or intrathoracic process seen..
[2021-11-18 18:05] VITALS: BP 156/69; PULSE 79; RESP 18; TEMP 36.6; O2SAT 96; BMI 20.2
[2021-11-18 18:15] LABS: MANUAL DIFF FLAG NO
[2021-11-18 18:18] LABS: Basophils Percent Auto 0.2 % (0-2); Eosinophils Percent Auto 0.5 % (0-4); Hematocrit 35.8 % (37.0-47.0); Hemoglobin 11.8 g/dl (12.0-16.0); Imm Gran Abs Auto 0.04 X10*3/uL (0.00-0.03); Imm Gran Pct Auto 0.5 % (0.0-0.4); Lymphocytes Absolute Auto 2.5 X10*3/uL (1.2-4.9); Lymphocytes Percent Auto 30.6 % (20-40); Mean Corpuscular Hemoglobin 33.6 pg (27.0-33.0); Mean Platelet Volume 8.8 fL (9.4-12.3); Monocytes Absolute Auto 0.7 X10*3/uL (0.1-1.2); Monocytes Percent Auto 8.7 % (2-11); Neutrophils Absolute Auto 4.8 x10*3/uL (2.0-8.3); Neutrophils Percent Auto 59.5 % (45-73); Platelet Count 234 X10*3/uL (160-400); Red Blood Count 3.51 X10*6/uL (4.20-5.50); Red Cell Distribution Width 12.3 % (11.0-16.0); White Blood Count 8.1 X10*3/uL (4.8-10.8)
--- NOTE | 2021-11-18 18:18 | ED.ABDPAIN ---
HPI - Abdominal Pain General Chief Complaint: Abdominal Pain Stated Complaint: complications from surgery Source: patient Mode of arrival: ambulatory Limitations: no limitations History of Present Illness HPI narrative: 65-year-old female presents with abdominal pain and bloating with epigastric pain. Had a colonoscopy and upper endoscopy with dilation on 11/15/2021. Patient also complains of a 06/17 migraine headache. MD elicited complaint: abdominal pain Onset (ago): day(s) (3) Pain Consistency: constant Location: epigastric, RUQ and RLQ Severity: moderate Pain scale (0-10): 3 Quality: aching and fullness Radiation: none Migration to: no migration Relieving factors: nothing Context: recent surgery/procedure (Upper endoscopy with balloon dilation, colonoscopy) Associated symptoms: denies other symptoms Related Data Home Medications Medication Instructions Recorded Confirmed buprenorphine HCl 600 mcg buccal 600 mcg BUCCAL Q12H 08/31/20 11/09/21 film (Belbuca) [id number] 1 tab PO BID PRN 08/31/20 11/09/21 50 mg-325 mg-40 mg tablet morphine 15 mg immediate release 1 tab PO TID PRN 08/31/20 11/09/21 tablet trazodone 300 mg tablet 300 mg PO BEDTIME 08/31/20 11/09/21 zolmitriptan 5 mg tablet (Zomig) 5 mg PO DAILY PRN 08/31/20 11/09/21 baclofen 20 mg tablet 20 mg PO TID PRN 09/29/20 11/09/21 cholecalciferol (vitamin D3) 125 125 mcg PO DAILY 09/29/20 11/09/21 mcg (5,000 unit) capsule lidocaine 5 % topical patch 3 patch TOPICAL DAILY 09/29/20 11/09/21 lorazepam 1 mg tablet 1 mg PO DAILY PRN 09/29/20 11/09/21 prochlorperazine 25 mg rectal 25 mg TN BID PRN 09/29/20 11/09/21 suppository sennosides 8.6 mg tablet 8.6 mg PO TIDWMEAL 09/29/20 11/09/21 celecoxib 200 mg capsule (Celebrex) 200 mg PO DAILY 10/07/20 11/09/21 acetaminophen 500 mg tablet 1,000 mg PO Q6-8H PRN 07/24/21 11/09/21 methylnaltrexone 150 mg tablet 450 mg PO QAM PRN 08/22/21 11/09/21 ibuprofen 800 mg tablet 1 tab PO TID PRN 11/15/21 11/15/21 Previous Rx's Medication Instructions Recorded polyethylene glycol 3350 17 17 g PO BID #238 g 09/06/20 gram/dose oral powder (Miralax) clotrimazole 1 % topical cream 1 appl TOPICAL BID 14 Days #45 g 03/16/21 (Antifungal (clotrimazole)) ondansetron 4 mg disintegrating 4 mg PO Q8H PRN #30 tab 05/28/21 tablet pantoprazole 40 mg tablet,delayed 40 mg PO BID 90 Days #180 tab 09/14/21 release bisacodyl 5 mg tablet,delayed 10 mg PO ONCE 1 Days #2 tab 10/30/21 release (Dulcolax (bisacodyl)) polyethylene glycol 3350 17 238 g PO ONCE 1 Days #238 g 10/30/21 gram/dose oral powder (Miralax) ursodiol 300 mg capsule 300 mg PO BID #90 cap 11/15/21 Allergies Allergy/AdvReac Type Severity Reaction Status Date / Time sumatriptan [From IMITREX] Allergy Unknown MAKES Verified 11/15/21 11:42 MIGRAINES WORSE Review of Systems Review of Systems Constitutional: No Weight loss, No Fever, No Chills, No Night Sweats, No Fatigue, No Malaise ENT/Mouth: No Hearing loss, No Ear Pain, No Nasal Congestion, No Sinus Pain, No Hoarseness, No sore throat, No Rhinorrhea, No Swallowing Difficulty Eyes: No Eye Pain, No Swelling, No Redness, No Foreign Body, No Discharge, No Vision Changes Cardiovascular: No Chest Pain, No SOB, No Dyspnea on Exertion, No Orthopnea, No Edema, No Palpitations Respiratory: No Cough, No Sputum, No Wheezing, No Smoke Exposure, No Dyspnea Gastrointestinal: No Nausea, no Vomiting, no Diarrhea, positive abdominal Pain, positive bloating, positive epigastric pain, No Hematochezia, No Melena Genitourinary: no irregular bleeding, No Dysuria, No Urinary Frequency, No Hematuria, No Urinary Incontinence, No Urgency, No Flank Pain, No Urinary Flow Changes, No Hesitancy Musculoskeletal: No joint pain, No Myalgias, No Joint Swelling Skin: No Skin Lesions, No rash Neuro: No Weakness, No Numbness, No Paresthesias, No Loss of Consciousness, No Dizziness, positive migraine Headache Psych: No Anxiety/Panic, No Depression, No SI/HI/AH/VH, No Social Issues Heme/Lymph: No Bruising, No Bleeding,No Lymphadenopathy Endocrine: No Polyuria, No Polydipsia, No Temperature Intolerance Yes all other systems are reviewed and are negative [facility] Past Medical History Attestation statement: The following information was validated with the patient. Source: old records reviewed Medical History Anxiety Arthritis Back pain Borderline personality disorder Constipation by delayed colonic transit Foot pain, left Migraine headache Opiate abuse, continuous Surgical History H/O hemorrhoidectomy History of section, classical History of esophagogastroduodenoscopy (EGD) History of hysterectomy History of laparoscopic appendectomy History of laparoscopic appendectomy History of lumbar discectomy History of pubovaginal sling Hx of colonoscopy Status post left foot surgery Family History Family History Mother Heart disease Father Heart disease Sister No problems noted. Son No problems noted. Son No problems noted. Social History Social History Household Members: Spouse Housing: House Are you a primary progressive care nurse to a significant other at home: No Do you presently have visiting nurse or other home services: Yes ([employer] 3 hours/week) Alcohol intake: never Patient Tobacco Use Status: Current everyday Tobacco user Tobacco use type: Cigarette Cigarettes Per Day: 4 Years Smoked: 6 Second Hand Smoke Exposure: No Advance Directives: No Advance Directives Information Provided: No Physical Exam ED Vital Signs: Vital Signs - 24 hr 11/18/21 18:05 11/18/21 18:35 Temperature 97.9 F Pulse Rate 79 71 Respiratory Rate 18 18 Blood Pressure 156/69 H 147/62 H Pulse Oximetry 96 97 BMI result Body Mass Index 20.2 Appearance: Alert. Oriented X3. Moderate distress. Eyes: Pupils equal, round and reactive to light. EOMI. Sclera nonicteric. ENT: Pharynx normal. Moist mucous membranes. Neck: Normal inspection. Neck supple. CVS: Normal heart rate and rhythm. Pulses normal. Respiratory: No respiratory distress. Breath sounds normal. Abdomen: Soft and diffusely tender. Nondistended, negative rebound or rigidity. Skin: Skin warm and dry. Normal skin color. Normal skin turgor. Extremities: No lower extremity edema. Gait well-balanced well coordinated. Neuro: No motor deficit. No sensory deficit. Cranial nerves 2-12 intact. Course Course Course Narrative: 65-year-old female presents with 10/10 abdominal pain in the right upper and right lower quadrants of the abdomen. Does report some epigastric pain as well. Gastroenterology Dr. Nash called and report on this patient regarding question of perforation. She had upper endoscopy with balloon dilation and colonoscopy on 11/15/2021. Will order CT scan abdomen and pelvis with chest to rule out perforation or ruptured esophagus. Second complaint patient has is 10/10 headache. States that her migraine is out of control and usually when she has migraines like this she needs Dilaudid Zofran and Benadryl. 18:50 after discussion with Radiology, plan of care is for CT scan abdomen pelvis and chest with and without contrast, IV and oral. 22:45 CT scan abdomen pelvis and chest negative for acute findings requiring emergent intervention. No obstructive or intra-abdominal intrathoracic processes have been seen. 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 Consultations Consultation #1: Saad Time: 18:00 MDM - Abdominal Pain Differential Diagnosis Differential diagnosis: Likely abdominal pain, bowel perforation and small bowel obstruction Differential diagnosis narrative:: Esophageal rupture, esophageal perf Medical Records Attestation: I reviewed the patient's medical records. Lab Data Attestation: I reviewed the patient's lab results. Result diagrams: 11/18/21 18:11 11/18/21 18:11 Labs: Lab Results 11/18/21 11/18/21 11/18/21 Range/Units 18:11 18:11 18:11 WBC 8.1 (4.8-10.8) X10*3/uL RBC 3.51 L (4.20-5.50) X10*6/uL Hgb 11.8 L (12.0-16.0) g/dl Hct 35.8 L (37.0-47.0) % MCV 102.0 H (80.0-98.0) fL MCH 33.6 H (27.0-33.0) pg MCHC 33.0 (31.0-35.0) g/dl RDW 12.3 (11.0-16.0) % Plt Count 234 (160-400) X10*3/uL MPV 8.8 L (9.4-12.3) fL Immature Gran % (Auto) 0.5 H (0.0-0.4) % Neut % (Auto) 59.5 (45-73) % Lymph % (Auto) 30.6 (20-40) % [place] % (Auto) 8.7 (2-11) % Eos % (Auto) 0.5 (0-4) % Baso % (Auto) 0.2 (0-2) % Lymph # (Auto) 2.5 (1.2-4.9) X10*3/uL [place] # (Auto) 0.7 (0.1-1.2) X10*3/uL Eos # (Auto) 0.0 (0.0-0.4) X10*3/uL Baso # (Auto) 0.0 (0.0-0.2) X10*3/uL Abs Immat Gran (auto) 0.04 H (0.00-0.03) X10*3/uL Absolute Neuts (auto) 4.8 (2.0-8.3) x10*3/uL Absolute Nucleated RBC 0.000 (0.0-0.012) X10*3/uL Nucleated RBC % (auto) 0.0 (0.0-0.2) /100WBC Sodium 139 (135-145) mmol/L Potassium 4.2 (3.3-5.1) mmol/L Chloride 105 (96-108) mmol/L Carbon Dioxide 27 (22-29) mmol/L Anion Gap 11 L (12-20) BUN 18 H (9-16) mg/dL Creatinine 0.77 (0.5-1.4) mg/dL Estim Creat Clear Calc 63.2 Estimated GFR > 60 Random Glucose 140 H (60-115) mg/dL Calcium 9.0 (8.4-10.2) mg/dL Total Bilirubin 0.4 (0.0-1.0) mg/dL Direct Bilirubin 0.2 (0.0-0.5) mg/dL AST 15 (5-31) U/L ALT 13 (0-31) U/L Alkaline Phosphatase 61 (39-117) U/L Troponin I High Sens < 3.5 (<3.5-17.0) ng/L Total Protein 6.3 L (6.5-8.0) g/dL Albumin 4.0 (3.5-5.0) g/dL Lipase 23 (8-78) U/L Imaging Data CT chest abdomen pelvis: Attestation: I personally reviewed and interpreted this imaging study as follows: Radiologist's impression: CLINICAL INFORMATION: Esophageal pain status post dilatation. 09/27/2020 CT scan Post colonoscopy, ? perf . COMPARISON: No pertinent prior studies are available for comparison. TECHNIQUE: Multidetector volumetric imaging was performed from the thoracic inlet through the pubic symphysis following administration of 100 mL Omnipaque 300 intravenous contrast. Sagittal and coronal reformatted images were obtained on the technologist's workstation. This CT examination was performed using dose optimization techniques as appropriate, variously including the following: *Automated exposure control *Adjustment of mA and/or kV according to patient size (this includes techniques or standardized protocols for targeted exams where dose is matched to indication/reason for exam; i.e. extremities or head) *Use of iterative reconstruction technique DLP: 666 mGy-cm FINDINGS: CHEST: Lung: Minimal dependent atelectasis. No dense consolidation. Central airways unremarkable. No pneumothorax. Mediastinum: No evidence for mediastinal gas or irregularity. Minimal contrast air-fluid level seen in the distal esophagus could reflect component of reflux but no focal esophageal wall thickening or paraesophageal inflammatory change. Pericardium/Pleura: No significant effusion. No pleural mass or thickening. Chest Wall/Axilla: Unremarkable. ABDOMEN/PELVIS: Peritoneal Space:No significant free air or free fluid identified. Liver, Gallbladder, Biliary Tree: The liver is normal in size, shape, and attenuation. No focal hepatic lesion or biliary ductal dilatation is present.? The gallbladder is unremarkable with no evidence of radiopaque gallstones, gallbladder wall thickening, or obvious pericholecystic inflammatory changes. Pancreas: Unremarkable. Spleen: Unremarkable. Adrenal Glands: Unremarkable. Kidneys and Ureters: Tiny low-attenuation probable cysts within the kidneys. Otherwise the kidneys are normal in size, shape, and attenuation. No hydronephrosis, hydroureter, or calculi seen. No perinephric stranding. Bladder: Unremarkable. Gastrointestinal Tract: Few scattered colonic diverticula are seen in the colon. No colonic wall thickening or pericolonic inflammatory change to suggest diverticulitis. Appendix not visualized and presumed surgically absent. Small bowel is unremarkable. I do not appreciate any significant free air or free fluid Abdominal Wall: No significant hernia is appreciated. Lymphovascular Structures: Vascular calcification within the aorta iliac system. No bulky retrocrural celia or mesenteric adenopathy. Pelvic Viscera: Presumably surgically absent Osseus Structures: Mild degenerative changes. CT/CT abdomen pelvis w con IMPRESSION: I do not appreciate any significant free air or free fluid. No obstructive changes to the bowel. No acute intra-abdominal or intrathoracic process seen.. ? ECG Data Attestation: I personally reviewed and interpreted this ECG as follows: ECG interpretation date: 11/18/21 ECG interpretation time: 19:03 Prior ECG tracings: available for review Interpretation: Vent. rate 64 BPM TN interval 178 ms QRS duration 92 ms QT/QTc 400/412 ms P-R-T axes 58 67 28 Normal sinus rhythm Normal ECG When compared with ECG of 05-OCT-2020 19:38, No significant change was found Discharge Plan Discharge Clinical Impression: Abdominal pain, Migraine Patient Disposition: Home, Self-Care Instructions: Abdominal Pain (ED), Migraine Headache (ED) Additional Instructions: You were evaluated for abdominal pain after a colonoscopy and upper endoscopy. CT scan of chest abdomen and pelvis is negative for acute findings requiring emergent intervention. Please follow-up with gastroenterology as scheduled. Continue to take all medications as prescribed. Thank you for choosing this emergency department for evaluation. Please follow-up with primary care physician as needed. Return to the emergency department for any new, concerning, or worsening symptoms. Prescriptions: No Action polyethylene glycol 3350 [Miralax] 17 gram/dose powder 17 g PO BID Qty: 238 3RF clotrimazole [Antifungal (clotrimazole)] 1 % cream 1 appl topical BID 14 Days Qty: 45 0RF ondansetron 4 mg tablet,disintegrating 4 mg PO Q8H PRN (Reason: nausea and vomiting) Qty: 30 2RF polyethylene glycol 3350 [Miralax] 17 gram/dose powder 238 g PO ONCE 1 Days Qty: 238 0RF Rx Instructions: Take as directed by mouth, bowel prep bisacodyl [Dulcolax (bisacodyl)] 5 mg tablet,delayed release (DR/EC) 10 mg PO ONCE 1 Days Qty: 2 0RF Rx Instructions: Take 2 tablets at 12:00pm the day before your procedure, bowel prep zolmitriptan [Zomig] 5 mg Tablet 5 mg PO DAILY PRN (Reason: Migraine Headache) 0RF zepyuelkif-arjphyhtuvyhl-whwa 50-325-40 mg Tablet 1 tab PO BID PRN (Reason: Migraine Headache) 0RF trazodone 300 mg Tablet 300 mg PO BEDTIME 0RF buprenorphine HCl [Belbuca] 600 mcg Film 600 mcg BUCCAL Q12H 0RF morphine 15 mg tablet 1 tab PO TID PRN (Reason: Pain, Severe) 0RF celecoxib [Celebrex] 200 mg Capsule 200 mg PO DAILY 0RF methylnaltrexone 150 mg tablet 450 mg PO QAM PRN (Reason: Constipation) 0RF ibuprofen 800 mg tablet 1 tab PO TID PRN (Reason: Pain) 0RF ursodiol 300 mg capsule 300 mg PO BID Qty: 90 2RF sennosides 8.6 mg tablet 8.6 mg PO TIDWMEAL 0RF baclofen 20 mg tablet 20 mg PO TID PRN (Reason: Back Pain) 0RF lidocaine 5 % adhesive patch,medicated 3 patch topical DAILY 0RF Rx Instructions: leave on for 12 hours lorazepam 1 mg tablet 1 mg PO DAILY PRN (Reason: Anxiety) 0RF prochlorperazine 25 mg suppository 25 mg TN BID PRN (Reason: vomiting) 0RF cholecalciferol (vitamin D3) 125 mcg (5,000 unit) capsule 125 mcg PO DAILY 0RF acetaminophen 500 mg tablet 1,000 mg PO Q6-8H PRN (Reason: Pain) 0RF pantoprazole 40 mg tablet,delayed release (DR/EC) 40 mg PO BID 90 Days Qty: 180 3RF Referrals: Cayla Nash MD [Physician] - 2 days (Status post endoscopy with balloon dilation, colonoscopy)
--- NOTE | 2021-11-18 18:22 | ECG_ITS ---
Test Reason : general medical Blood Pressure : / mmHG Vent. Rate : 064 BPM Atrial Rate : 064 BPM P-R Int : 178 ms QRS Dur : 092 ms QT Int : 400 ms P-R-T Axes : 058 067 028 degrees QTc Int : 412 ms Normal sinus rhythm Normal ECG When compared with ECG of 05-OCT-2020 19:38, No significant change was found Referred By: Ludy Paige Electronically Signed By:SEE HARRIS
[2021-11-18 18:35] VITALS: BP 147/62; PULSE 71; RESP 18; O2SAT 97
[2021-11-18 18:39] LABS: Anion Gap 11 (12-20); Blood Urea Nitrogen 18 mg/dL (9-16); Carbon Dioxide 27 mmol/L (22-29); Chloride 105 mmol/L (96-108); Creatinine Clr Calc Pharmacy 63.2; Estimated Glomerular Filt Rate > 60; Glucose Random 140 mg/dL (60-115); Potassium 4.2 mmol/L (3.3-5.1); Sodium 139 mmol/L (135-145)
[2021-11-18] MEDS: 0.9 % Sodium Chloride 1,000 ML 999 ML IVCONT (18:41)
[2021-11-18] MEDS: dexAMETHasone sod phosphate 4 MG/ML VIAL 6 MG IVPUSH (18:43)
[2021-11-18] MEDS: ondansetron HCL 4 MG/2 ML VIAL IVPUSH (18:44)
[2021-11-18] MEDS: diphenhydrAMINE HCL 50 MG/ML VIAL 25 MG IVPUSH (18:44)
[2021-11-18] MEDS: HYDROmorphone HCl 1 MG/ML SYRINGE IVPUSH (18:44)
[2021-11-18 18:49] LABS: Alanine Aminotransferase 13 U/L (0-31); Alkaline Phosphatase 61 U/L (39-117); Aspartate Amino Transferase 15 U/L (5-31); Bilirubin Direct 0.2 mg/dL (0.0-0.5); Bilirubin Total 0.4 mg/dL (0.0-1.0); Lipase 23 U/L (8-78); Total Protein 6.3 g/dL (6.5-8.0)
[2021-11-18 18:57] LABS: Troponin-I High Sensitivity < 3.5 ng/L (<3.5-17.0)
[2021-11-18] MEDS: Diatrizoate Meglumine, Sodium 30 ML SOLUTION PO (19:19)
[2021-11-18] MEDS: iohexoL 350 MG/ML 100 ML INFUS..BTL IV (21:20)
[2021-11-18 23:19] VITALS: BP 146/46; PULSE 77; RESP 18; TEMP 36.9; O2SAT 96
== END 2021-11-18 23:26 | disposition home or self-care (01) ==
PROVIDERS: Nurse Practitioner Family; Emergency Provider Emergency Medicine Emergency Medical Services; PCP Family Medicine
DX: R10.13 Epigastric pain (principal); G43.909 Migraine, unspecified, not intractable, without status migrainosus; R10.11 Right upper quadrant pain; F17.210 Nicotine dependence, cigarettes, uncomplicated; Z71.6 Tobacco abuse counseling; Z79.899 Other long term (current) drug therapy
CPT/HCPCS: 36415; 71260; 74177; 80048; 80076; 83690; 84484; 85025; 93005; 99284; J1100; J1170; J1200; J2405; Q9967

== ENCOUNTER → 2022-01-10 10:08 | Outpatient (BNVA) | payer OTHER, SELFPAY | PROVIDERS: PCP Family Medicine; Visit Provider Surgery | DX: K64.8 Other hemorrhoids (principal) | CPT/HCPCS: 46600; 99212 ==

== ENCOUNTER 2022-04-10 07:46 | Day surgery (SDC) | payer OTHER, SELFPAY ==
[2022-04-10 08:25] VITALS: BP 153/67; PULSE 72; RESP 16; TEMP 36.4; O2SAT 98; BMI 20.9
--- NOTE | 2022-04-10 09:13 | MHC.SHP ---
Pre-Procedural Eval Section A Date of Service: 04/10/22 Section B Chief Complaint: Dysphagia, Relevant Family History (Specify if Yes): No Relevant Social History: Tobacco Use Present Medications: see Short Stay Collaborative assessment Medical History: Significant History (Anxiety Arthritis Back pain Borderline personality disorder Constipation by delayed colonic transit Foot pain, left Migraine headache Opiate abuse, continuous) History of Previous Operations: Relevant previous surgery/procedure and date(s) (H/O hemorrhoidectomy History of section, classical History of esophagogastroduodenoscopy (EGD) History of hysterectomy History of laparoscopic appendectomy History of laparoscopic appendectomy History of lumbar discectomy History of pubovaginal sling Hx of colonoscopy Status post left foot ) Allergies: Allergies Allergy/AdvReac Type Severity Reaction Status Date / Time sumatriptan [From IMITREX] Allergy Unknown MAKES Verified 01/10/22 10:24 MIGRAINES WORSE Review of Systems Sugical H&P ROS: Negative: Constitution, Cardiovascular, Respiratory, Neurological, Psychiatric, Hem-Onc, Allergic/Immunologic, Gastrointestinal, Genitourinary, Musculoskeletal, Integumentary, Endocrine and Eyes/Ears/Nose/Throat Exam Surgical H&P Exam: Normal: HEENT, Normal: Heart, Normal: Lungs, Normal: Extremities, Normal: Abdomen, Normal: Skin and Normal: Neurological Plan Diagnosis/Plan: Unchanged I have reviewed the history and physical and performed a pertinent physical examination on my patient. No changes have occurred unless specified.
--- NOTE | 2022-04-10 09:14 | W.PM.OPN ---
Operative Note Operative Note Date of Service: 04/10/22 Narrative: Procedure Description: EGD Indication: dysphagia Anesthesia: MAC FLEXIBLE TRANSORAL UPPER GASTROINTESTINAL ENDOSCOPY UPPER ENDOSCOPY Consent: Indications for the procedure and potential complications of bleeding, perforation, reaction to medications and missed diagnosis were discussed with the patient and informed consent was obtained. Instrument: Olympus GIF H 190 J mid size upper endoscope Monitoring: Vital signs and clinical assessment, continuous EKG monitoring, Pulse oximetry, Carbon Dioxide monitoring and blood pressure monitoring were done throughout the procedure. Procedure: The patient was placed in the left lateral decubitis position and pre-procedure medications were administered and a bite block was placed. The endoscope was inserted into the mouth and advanced under direct vision to the third part of duodenum. A careful inspection was made as the upper endoscope was withdrawn including a retroflexed examination of the proximal stomach; Findings and interventions are described below. Findings: Larynx:normal Esophagus: GE junction at 40? cm, diaphragm hiatus at 40 cm, normal mucosa.? Balloon dilation done of GEJ in sequential manner from 18-19 with no tear seen. Proximal esophagus at UES also stretched to 20 mm. No tear seen Stomach: Patchy erythema with mosaic pattern, bx taken. Grade 2 flap valve on retroflexed examination of the cardia. There was a shallow ulcer at antrum 8 mm with few erosions and edema, bx taken Duodenum: mild bulbar duodenitis, bx taken Intervention: Biopsies as noted above, balloon dilation Impression/Findings: esophagitis gastropathy and erosive gastritis with ulcer PLAN: confirm PPI compliance might need gastrin level checked.
--- NOTE | 2022-04-10 09:15 | HO.ANESPROP2 ---
FORMERLY [facility] Active Problems Active Problems: All Active Problems (Updated 01/10/22 @ 10:42 by Pepe Swann MD) Hemorrhoids with complication (Acute) Cellulitis (Acute) History of appendectomy (Acute) Constipation by delayed colonic transit (Acute) Dysphagia (Acute) Gastropathy (Acute) Past Medical History Medical History (Updated 01/10/22 @ 10:42 by Pepe Swann MD) Anxiety Arthritis Back pain Borderline personality disorder Constipation by delayed colonic transit Foot pain, left Hemorrhoids with complication Migraine headache Opiate abuse, continuous Family History Family History Mother Heart disease Father Heart disease Sister No problems noted. Son No problems noted. Son No problems noted. Family history of problems with anesthesia: No Surgical History Surgical History H/O hemorrhoidectomy History of section, classical History of esophagogastroduodenoscopy (EGD) History of hysterectomy History of laparoscopic appendectomy History of laparoscopic appendectomy History of lumbar discectomy History of pubovaginal sling Hx of colonoscopy Status post left foot surgery History of Problems with Anesthesia: No Social History Social History Household Members: Spouse Housing: House Are you a primary family member caretaker to a significant other at home: No Do you presently have visiting nurse or other home services: Yes ([employer] 3 hours/week) Alcohol intake: never Patient Tobacco Use Status: Current everyday Tobacco user Tobacco use type: Cigarette Cigarettes Per Day: 5 Years Smoked: 6 Second Hand Smoke Exposure: No Advance Directives: No Advance Directives Information Provided: Yes Meds Allergies Allergy/AdvReac Type Severity Reaction Status Date / Time sumatriptan [From IMITREX] Allergy Unknown MAKES Verified 01/10/22 10:24 MIGRAINES WORSE Home Medications Medication Instructions Recorded Confirmed Last Taken Type buprenorphine HCl 600 mcg buccal 600 mcg buccal Q12H 08/31/20 01/10/22 11/15/21 04:00 History film (Belbuca) [id number] 1 tab PO BID PRN Migraine Headache 08/31/20 01/10/22 11/15/21 04:00 History 50 mg-325 mg-40 mg tablet morphine 15 mg immediate release 1 tab PO TID PRN Pain, Severe 08/31/20 01/10/22 11/15/21 04:00 History tablet trazodone 300 mg tablet 300 mg PO BEDTIME 08/31/20 01/10/22 Unknown History zolmitriptan 5 mg tablet (Zomig) 5 mg PO DAILY PRN Migraine Headache 08/31/20 01/10/22 Unknown History baclofen 20 mg tablet 20 mg PO TID PRN Back Pain 09/29/20 01/10/22 01/11/21 History cholecalciferol (vitamin D3) 125 125 mcg PO DAILY 09/29/20 01/10/22 Unknown History mcg (5,000 unit) capsule lidocaine 5 % topical patch 3 patch topical DAILY 09/29/20 01/10/22 11/15/21 04:00 History lorazepam 1 mg tablet 1 mg PO DAILY PRN Anxiety 09/29/20 01/10/22 11/15/21 04:00 History prochlorperazine 25 mg rectal 25 mg [place] BID PRN vomiting 09/29/20 01/10/22 Unknown History suppository sennosides 8.6 mg tablet 8.6 mg PO TIDWMEAL 09/29/20 01/10/22 Unknown History celecoxib 200 mg capsule (Celebrex) 200 mg PO DAILY 10/07/20 01/10/22 Unknown History acetaminophen 500 mg tablet 1,000 mg PO Q6-8H PRN Pain 07/24/21 01/10/22 Unknown History methylnaltrexone 150 mg tablet 450 mg PO QAM PRN Constipation 08/22/21 01/10/22 Unknown History ibuprofen 800 mg tablet 1 tab PO TID PRN Pain 11/15/21 01/10/22 11/15/21 03:00 History hydroxyzine HCl 25 mg tablet 25 mg PO QID 01/10/22 01/10/22 Unknown History Exam Exam Date and Time: April 10, 2022 0915 Height,Weight and Vital Signs: Height 5 ft 3 in Weight 53.524 kg Last Vital Signs Temp 97.5 F 04/10/22 08:25 Pulse 72 04/10/22 08:25 Resp 16 04/10/22 08:25 BP 153/67 H 04/10/22 08:25 Pulse Ox 98 04/10/22 08:25 O2 Del Method 04/10/22 08:25 Airway Mallampati Class: II (Top upper caps) TM Dist: >3cm Neck ROM: Full Partial: Lower Heart: rrr Lungs: ta Assessment and Plan Assessment Anesthesia Assessment: Anesthesia Plan Discussed and Chart Reviewed Final Anesthetic Review Family History of Problems with Anesthesia: No History of Problems with Anesthesia: No NPO: Yes ASA Class: II Final Preanesthetic Review: No Changes in Pt Med Stat, Meds/Allgs Chart Reviewed and Consent Obtained/Reviewed Patient Risk: Intermediate Procedure Risk: Intermediate Anesthetic Plan Anesthetic Plan: MAC: Disposition: Standard PACU
[2022-04-10 09:57] VITALS: BP 136/63; PULSE 60; RESP 16; TEMP 36.3; O2SAT 97
[2022-04-10 10:12] VITALS: BP 148/73; PULSE 68; RESP 18; TEMP 36.3; O2SAT 100
== END 2022-04-10 10:57 | disposition home or self-care (01) ==
PROVIDERS: PCP Family Medicine; Visit Provider Internal Medicine Gastroenterology
PROC: (CPT 43249; principal; 2022-04-10 09:30)
DX: R13.10 Dysphagia, unspecified (principal); K29.50 Unspecified chronic gastritis without bleeding; K25.9 Gastric ulcer, unspecified as acute or chronic, without hemorrhage or perforation; K29.80 Duodenitis without bleeding; K20.80 Other esophagitis without bleeding; K44.9 Diaphragmatic hernia without obstruction or gangrene; K59.01 Slow transit constipation; F60.3 Borderline personality disorder; G43.909 Migraine, unspecified, not intractable, without status migrainosus; F11.10 Opioid abuse, uncomplicated; F17.210 Nicotine dependence, cigarettes, uncomplicated; Z79.899 Other long term (current) drug therapy
CPT/HCPCS: 43249; 43239; 88305; 88342; C1726

== ENCOUNTER 2022-09-19 12:52 | Day surgery (SDC) | payer OTHER, SELFPAY ==
--- NOTE | 2022-09-19 13:23 | MHC.SHP ---
Pre-Procedural Eval Section A Date of Service: 09/19/22 Section B Chief Complaint: Dysphagia, unspecified Details of Present Illness: hx of dysphagia improved with dilation in past Relevant Family History (Specify if Yes): No Relevant Social History: Tobacco Use Present Medications: see Short Stay Collaborative assessment Medical History: Significant History (Anxiety Arthritis Back pain Borderline personality disorder Constipation by delayed colonic transit Foot pain, left Hemorrhoids with complication Migraine headache Opiate abuse, continuous) History of Previous Operations: Relevant previous surgery/procedure and date(s) ( H/O hemorrhoidectomy History of section, classical History of esophagogastroduodenoscopy (EGD) History of hysterectomy History of laparoscopic appendectomy History of laparoscopic appendectomy History of lumbar discectomy History of pubovaginal sling Hx of colonoscopy Status post left foot) Allergies: Allergies Allergy/AdvReac Type Severity Reaction Status Date / Time sumatriptan [From IMITREX] Allergy Unknown MAKES Verified 06/21/22 08:50 MIGRAINES WORSE Review of Systems Sugical H&P ROS: Negative: Constitution, Cardiovascular, Respiratory, Neurological, Psychiatric, Hem-Onc, Allergic/Immunologic, Gastrointestinal, Genitourinary, Musculoskeletal, Integumentary, Endocrine and Eyes/Ears/Nose/Throat Exam Surgical H&P Exam: Normal: HEENT, Normal: Heart, Normal: Lungs, Normal: Extremities, Normal: Abdomen, Normal: Skin and Normal: Neurological Plan Diagnosis/Plan: Unchanged I have reviewed the history and physical and performed a pertinent physical examination on my patient. No changes have occurred unless specified. Time Spent With Patient Time: Total time managing care of this patient today ____ minutes.
[2022-09-19 13:33] VITALS: BP 155/83; PULSE 83; RESP 18; TEMP 36.8; O2SAT 96
[2022-09-19] MEDS: Lactated Ringers 1,000 ML 80 ML IVCONT (13:34)
--- NOTE | 2022-09-19 13:34 | W.PM.OPN ---
Operative Note Operative Note Date of Service: 09/19/22 Narrative: Procedure Description: EGD Indication: dysphagia Anesthesia: MAC FLEXIBLE TRANSORAL UPPER GASTROINTESTINAL ENDOSCOPY UPPER ENDOSCOPY Consent: Indications for the procedure and potential complications of bleeding, perforation, reaction to medications and missed diagnosis were discussed with the patient and informed consent was obtained. Instrument: Olympus GIF H 190 J mid size upper endoscope Monitoring: Vital signs and clinical assessment, continuous EKG monitoring, Pulse oximetry, Carbon Dioxide monitoring and blood pressure monitoring were done throughout the procedure. Procedure: The patient was placed in the left lateral decubitis position and pre-procedure medications were administered and a bite block was placed. The endoscope was inserted into the mouth and advanced under direct vision to the third part of duodenum. A careful inspection was made as the upper endoscope was withdrawn including a retroflexed examination of the proximal stomach; Findings and interventions are described below. Findings: Larynx:normal Esophagus: GE junction at 40 cm, diaphragm hiatus at 40 cm, no varices or esophagitis. Savary wire passed and dilation done with 17 mm bougie. No tears seen. Stomach: Patchy gastric erythema and scarring noted in antrum consistent with atrophic gastritis. . Biopsies were obtained. Grade 2 flap valve on retroflexed examination of the cardia. Duodenum: Normal bulb and descending duodenum, Intervention: Biopsies as noted above, esophageal dilation Impression/Findings: atrophic gastritis PLAN: await bx regular diet as tolerated magic mouthwash
[2022-09-19 13:41] VITALS: BMI 22.6
[2022-09-19 14:14] VITALS: BP 156/76; PULSE 69; RESP 16; TEMP 36.8; O2SAT 97
[2022-09-19] MEDS: Mag&Al/Sim/Diphenhyd/Lidocaine 10 ML ORAL.SUSP PO (14:25)
[2022-09-19 14:29] VITALS: BP 145/71; PULSE 69; RESP 18; TEMP 36.9; O2SAT 98
== END 2022-09-19 14:57 | disposition home or self-care (01) ==
PROVIDERS: PCP Family Medicine; Visit Provider Internal Medicine Gastroenterology
PROC: (CPT 43248; principal; 2022-09-19 14:10)
DX: R13.10 Dysphagia, unspecified (principal); K29.40 Chronic atrophic gastritis without bleeding; K44.9 Diaphragmatic hernia without obstruction or gangrene; K59.01 Slow transit constipation; G43.909 Migraine, unspecified, not intractable, without status migrainosus; F11.10 Opioid abuse, uncomplicated; Z79.899 Other long term (current) drug therapy; Z88.8 Allergy status to other drugs, medicaments and biological substances; Z66 Do not resuscitate; Z98.890 Other specified postprocedural states; F17.210 Nicotine dependence, cigarettes, uncomplicated
CPT/HCPCS: 43248; 43239; 88305; 88342; C1769

== ENCOUNTER → 2022-10-18 08:43 | Outpatient (BNVA) | payer OTHER, SELFPAY | PROVIDERS: PCP Family Medicine; Visit Provider Internal Medicine Gastroenterology | DX: Z13.89 Encounter for screening for other disorder (principal) ==

== ENCOUNTER 2023-05-29 07:35 | Day surgery (SDC) | payer MEDICARE, MEDICAID, SELFPAY ==
[2023-05-29 07:51] VITALS: BP 136/59; PULSE 77; RESP 16; TEMP 36.4; O2SAT 97; BMI 22.7
--- NOTE | 2023-05-29 08:15 | HO.ANESPROP2 ---
HPI - Anesthesia Eval Consult details Narrative: 67 F for EGD s/p back surgery , sciatica patient is on chronic opioids [facility] Active Problems Active Problems: All Active Problems (Updated 11/14/22 @ 14:28 by Marek López MD) Small bowel obstruction due to adhesions (Acute) Hemorrhoids with complication (Acute) Cellulitis (Acute) History of appendectomy (Acute) Constipation by delayed colonic transit (Acute) Dysphagia (Acute) Gastropathy (Acute) Past Medical History Medical History Anxiety Arthritis Back pain Borderline personality disorder Constipation by delayed colonic transit Foot pain, left Hemorrhoids with complication Migraine headache Opiate abuse, continuous Family History Family History Mother Heart disease Father Heart disease Sister No problems noted. Son No problems noted. Son No problems noted. Family history of problems with anesthesia: No Surgical History Surgical History H/O hemorrhoidectomy History of section, classical History of esophagogastroduodenoscopy (EGD) History of hysterectomy History of laparoscopic appendectomy History of laparoscopic appendectomy History of lumbar discectomy History of pubovaginal sling Hx of colonoscopy S/P foot surgery, right Status post left foot surgery History of Problems with Anesthesia: No Social History Social History Household Members: Spouse Housing: House Are you a primary transitional care manager to a significant other at home: No Do you presently have visiting nurse or other home services: Yes ([facility] 3 hours/week) Alcohol intake: never Patient Tobacco Use Status: Never used Tobacco Tobacco use type: Cigarette Cigarettes Per Day: 5 Years Smoked: 6 Second Hand Smoke Exposure: No Meds Allergies Allergy/AdvReac Type Severity Reaction Status Date / Time sumatriptan [From IMITREX] Allergy Unknown MAKES Verified 10/18/22 08:44 MIGRAINES WORSE Home Medications Medication Instructions Recorded Confirmed Last Taken Type buprenorphine HCl 600 mcg buccal 600 mcg buccal Q12H 08/31/20 09/19/22 11/15/21 04:00 History film (Belbuca) [id number] 1 tab PO BID PRN Migraine Headache 08/31/20 09/19/22 11/15/21 04:00 History 50 mg-325 mg-40 mg tablet zolmitriptan 5 mg tablet (Zomig) 5 mg PO DAILY PRN Migraine Headache 08/31/20 09/19/22 Unknown History baclofen 20 mg tablet 20 mg PO TID PRN Back Pain 09/29/20 09/19/22 09/19/22 History cholecalciferol (vitamin D3) 125 125 mcg PO DAILY 09/29/20 09/19/22 Unknown History mcg (5,000 unit) capsule lidocaine 5 % topical patch 3 patch topical DAILY 09/29/20 01/10/22 11/15/21 04:00 History lorazepam 1 mg tablet 1 mg PO DAILY PRN Anxiety 09/29/20 09/19/22 11/15/21 04:00 History hydroxyzine HCl 25 mg tablet 25 mg PO QID 01/10/22 09/19/22 Unknown History divalproex 500 mg tablet,extended 500 mg PO TID 06/21/22 09/19/22 Unknown History release 24 hr hydromorphone 2 mg tablet 2 mg PO QID 06/21/22 09/19/22 09/19/22 History lidocaine 5 % topical ointment topical 06/21/22 Unknown History trazodone 100 mg tablet mg PO 06/21/22 Unknown History acetaminophen 500 mg tablet 500 - 1,000 mg PO Q8H 10/18/22 Unknown History ibuprofen 800 mg tablet 800 mg PO TID 10/18/22 Unknown History lorazepam 0.5 mg tablet 0.5 mg PO BID PRN 10/18/22 Unknown History naproxen 500 mg tablet 500 mg PO BID 10/18/22 Unknown History pregabalin 50 mg capsule 50 mg PO BID 10/18/22 Unknown History sennosides 8.6 mg tablet (senna) 8.6 mg PO TID 10/18/22 Unknown History Exam Exam Date and Time: May 29, 2023 0815 Height,Weight and Vital Signs: Height 5 ft 3 in Weight 58.06 kg Last Vital Signs Temp 97.6 F 05/29/23 07:51 Pulse 77 05/29/23 07:51 Resp 16 05/29/23 07:51 BP 136/59 L 05/29/23 07:51 Pulse Ox 97 05/29/23 07:51 O2 Del Method Room Air 05/29/23 07:51 Airway Mallampati Class: IV Partial: Lower Loose/Missing/Broken Teeth: Yes (loose teeth lower) Assessment and Plan Assessment Anesthesia Assessment: Anesthesia Plan Discussed and Chart Reviewed Final Anesthetic Review Family History of Problems with Anesthesia: No History of Problems with Anesthesia: No NPO: Yes ASA Class: III Final Preanesthetic Review: Meds/Allgs Chart Reviewed, Consent Obtained/Reviewed and Anes Risks/Benef Reviewed Patient Risk: Intermediate Procedure Risk: Intermediate Anesthetic Plan Anesthetic Plan: MAC: Disposition: Standard PACU
--- NOTE | 2023-05-29 09:09 | MHC.SHP ---
Pre-Procedural Eval Section A Date of Service: 05/29/23 Section B Chief Complaint: Dysphagia, unspecified Relevant Family History (Specify if Yes): No Relevant Social History: None (ex smoker) Present Medications: see Short Stay Collaborative assessment Medical History: Significant History (Anxiety Arthritis Back pain Borderline personality disorder Constipation by delayed colonic transit Foot pain, left Hemorrhoids with complication Migraine headache Opiate abuse, continuous) History of Previous Operations: Relevant previous surgery/procedure and date(s) (H/O hemorrhoidectomy History of section, classical History of esophagogastroduodenoscopy (EGD) History of hysterectomy History of laparoscopic appendectomy History of laparoscopic appendectomy History of lumbar discectomy History of pubovaginal sling Hx of colonoscopy S/P foot surgery, righ) Allergies: Allergies Allergy/AdvReac Type Severity Reaction Status Date / Time sumatriptan [From IMITREX] Allergy Unknown MAKES Verified 10/18/22 08:44 MIGRAINES WORSE Review of Systems Sugical H&P ROS: Negative: Constitution, Cardiovascular, Respiratory, Neurological, Psychiatric, Hem-Onc, Allergic/Immunologic, Gastrointestinal, Genitourinary, Musculoskeletal, Integumentary, Endocrine and Eyes/Ears/Nose/Throat Exam Surgical H&P Exam: Normal: HEENT, Normal: Heart, Normal: Lungs, Normal: Extremities, Normal: Abdomen, Normal: Skin and Normal: Neurological Plan Diagnosis/Plan: Unchanged I have reviewed the history and physical and performed a pertinent physical examination on my patient. No changes have occurred unless specified. Time Spent With Patient Time: Total time managing care of this patient today ____ minutes.
--- NOTE | 2023-05-29 09:52 | W.PM.OPN ---
Operative Note Operative Note Date of Service: 05/29/23 Narrative: Procedure Description: EGD Indication: dysphagia Anesthesia: MAC FLEXIBLE TRANSORAL UPPER GASTROINTESTINAL ENDOSCOPY UPPER ENDOSCOPY Consent: Indications for the procedure and potential complications of bleeding, perforation, reaction to medications and missed diagnosis were discussed with the patient and informed consent was obtained. Instrument: Olympus GIF H 190 J mid size upper endoscope Monitoring: Vital signs and clinical assessment, continuous EKG monitoring, Pulse oximetry, Carbon Dioxide monitoring and blood pressure monitoring were done throughout the procedure. Procedure: The patient was placed in the left lateral decubitis position and pre-procedure medications were administered and a bite block was placed. The endoscope was inserted into the mouth and advanced under direct vision to the third part of duodenum. A careful inspection was made as the upper endoscope was withdrawn including a retroflexed examination of the proximal stomach; Findings and interventions are described below. Findings: Larynx:normal Esophagus: GE junction at 40 cm, diaphragm hiatus at 40 cm, no varices or esophagitis. Savary wire passed and dilation done with 17 mm bougie. No tears seen. Stomach: Mild gastric erythema, Grade 2 flap valve on retroflexed examination of the cardia. Duodenum: Normal bulb and descending duodenum, Intervention: esophageal dilation -wire guided with savary Impression/Findings: mild gastritis PLAN: regular diet as tolerated magic mouthwash
[2023-05-29 10:04] VITALS: BP 87/44; PULSE 50; RESP 13; TEMP 36.1; O2SAT 99
[2023-05-29 10:19] VITALS: BP 91/41; PULSE 59; RESP 16; O2SAT 96
[2023-05-29] MEDS: Mag&Al/Sim/Diphenhyd/Lidocaine 10 ML ORAL.SUSP PO (10:21)
[2023-05-29 10:34] VITALS: BP 101/51; PULSE 56; RESP 18; TEMP 36.1; O2SAT 97
== END 2023-05-29 11:03 | disposition home or self-care (01) ==
PROVIDERS: PCP Family Medicine; Visit Provider Internal Medicine Gastroenterology
PROC: 0DJ08ZZ Inspection of Upper Intestinal Tract, Via Natural or Artificial Opening Endoscopic (ICD-10-PCS; CPT 43235; principal; 2023-05-29 09:00)
DX: R13.10 Dysphagia, unspecified (principal); K29.50 Unspecified chronic gastritis without bleeding; K59.01 Slow transit constipation; K44.9 Diaphragmatic hernia without obstruction or gangrene; J44.9 Chronic obstructive pulmonary disease, unspecified; F11.10 Opioid abuse, uncomplicated; Z98.890 Other specified postprocedural states; Z88.8 Allergy status to other drugs, medicaments and biological substances
CPT/HCPCS: 43248; C1769

== ENCOUNTER → 2023-05-29 07:35 | Outpatient (BNV) | payer MEDICARE, MEDICAID, SELFPAY | PROVIDERS: PCP Family Medicine; Visit Provider Internal Medicine Gastroenterology | DX: R13.10 Dysphagia, unspecified (principal); K29.70 Gastritis, unspecified, without bleeding | CPT/HCPCS: 43248 ==

== ENCOUNTER 2023-08-21 10:50 | Day surgery (SDC) | payer MEDICARE, MEDICAID, SELFPAY ==
[2023-08-19 15:12] VITALS: BMI 22.7
--- NOTE | 2023-08-20 09:53 | HO.ANESPROP2 ---
Documented by User: Edwige Pappas NP 08/20/23 09:53 HPI - Anesthesia Eval Consult details Narrative: 67yo F for Upper Endoscopy with Balloon Dilitation s/p same 05/2023 with MAC chronic opiates for back pain [facility] Active Problems Active Problems: All Active Problems (Updated 11/14/22 @ 14:28 by Marek López MD) Small bowel obstruction due to adhesions (Acute) Gastropathy (Acute) Dysphagia (Acute) Constipation by delayed colonic transit (Acute) History of appendectomy (Acute) Cellulitis (Acute) Hemorrhoids with complication (Acute) Past Medical History Medical History (Updated 11/14/22 @ 14:28 by Marek López MD) Hemorrhoids with complication Foot pain, left Anxiety Arthritis Migraine headache Back pain Constipation by delayed colonic transit Opiate abuse, continuous Borderline personality disorder Family History Family History Mother Heart disease Father Heart disease Sister No problems noted. Son No problems noted. Son No problems noted. Family history of problems with anesthesia: No Surgical History Surgical History (Updated 08/19/23 @ 15:02 by Sejal Wright RN) S/P foot surgery, right History of laparoscopic appendectomy History of esophagogastroduodenoscopy (EGD) Hx of colonoscopy History of laparoscopic appendectomy History of pubovaginal sling History of lumbar discectomy History of hysterectomy History of section, classical H/O hemorrhoidectomy Status post left foot surgery History of Problems with Anesthesia: No Social History Social History Household Members: Spouse Housing: House Are you a primary ostomy care nurse to a significant other at home: No Do you presently have visiting nurse or other home services: Yes ([employer] 3 hours/week) Alcohol intake: never Comment: SLEEPING Patient Tobacco Use Status: Never used Tobacco Tobacco use type: Cigarette Cigarettes Per Day: 5 Years Smoked: 6 Second Hand Smoke Exposure: No Use of substances other than those prescribed or required for medical reasons: No Are you DNR?: No Advance Directives: No Advance Directives Information Provided: Yes Meds Allergies Allergy/AdvReac Type Severity Reaction Status Date / Time sumatriptan [From IMITREX] Allergy Unknown MAKES Verified 08/21/23 11:05 MIGRAINES WORSE Home Medications Medication Instructions Recorded Confirmed Last Taken Type buprenorphine HCl 600 mcg buccal 600 mcg buccal Q12H 08/31/20 08/19/23 11/15/21 04:00 History film (Belbuca) [id number] 1 tab PO BID PRN Migraine Headache 08/31/20 08/19/23 11/15/21 04:00 History 50 mg-325 mg-40 mg tablet zolmitriptan 5 mg tablet (Zomig) 5 mg PO DAILY PRN Migraine Headache 08/31/20 08/19/23 Unknown History baclofen 20 mg tablet 20 mg PO TID PRN Back Pain 09/29/20 08/19/23 09/19/22 History cholecalciferol (vitamin D3) 125 125 mcg PO DAILY 09/29/20 09/19/22 Unknown History mcg (5,000 unit) capsule lidocaine 5 % topical patch 3 patch topical DAILY 09/29/20 08/19/23 11/15/21 04:00 History lorazepam 1 mg tablet 1 mg PO DAILY PRN Anxiety 09/29/20 09/19/22 11/15/21 04:00 History hydroxyzine HCl 25 mg tablet 25 mg PO QID 01/10/22 08/19/23 Unknown History divalproex 500 mg tablet,extended 500 mg PO TID 06/21/22 08/19/23 Unknown History release 24 hr hydromorphone 2 mg tablet 2 mg PO QID 06/21/22 08/19/23 09/19/22 History lidocaine 5 % topical ointment 1 appl topical DAILY 06/21/22 08/19/23 Unknown History trazodone 100 mg tablet 100 mg PO BEDTIME 06/21/22 08/19/23 Unknown History acetaminophen 500 mg tablet 500 - 1,000 mg PO Q8H 10/18/22 08/19/23 Unknown History ibuprofen 800 mg tablet 800 mg PO TID 10/18/22 08/19/23 Unknown History lorazepam 0.5 mg tablet 0.5 mg PO BID PRN Anxiety 10/18/22 08/19/23 Unknown History naproxen 500 mg tablet 500 mg PO BID 10/18/22 Unknown History pregabalin 50 mg capsule 50 mg PO BID 10/18/22 08/19/23 Unknown History sennosides 8.6 mg tablet (senna) 8.6 mg PO TID 10/18/22 Unknown History Exam Height,Weight and Vital Signs: Height 5 ft 3 in Weight 58.06 kg Assessment and Plan Assessment Anesthesia Assessment: Chart Reviewed Final Anesthetic Review Family History of Problems with Anesthesia: No History of Problems with Anesthesia: No Documented by User: Robbin Alonzo MD 08/21/23 11:11 [facility] Past Medical History Medical History (Updated 11/14/22 @ 14:28 by Marek López MD) Hemorrhoids with complication Foot pain, left Anxiety Arthritis Migraine headache Back pain Constipation by delayed colonic transit Opiate abuse, continuous Borderline personality disorder Family History Family History Mother Heart disease Father Heart disease Sister No problems noted. Son No problems noted. Son No problems noted. Surgical History Surgical History (Updated 08/19/23 @ 15:02 by Sejal Wright RN) S/P foot surgery, right History of laparoscopic appendectomy History of esophagogastroduodenoscopy (EGD) Hx of colonoscopy History of laparoscopic appendectomy History of pubovaginal sling History of lumbar discectomy History of hysterectomy History of section, classical H/O hemorrhoidectomy Status post left foot surgery Social History Social History Household Members: Spouse Housing: House Are you a primary ostomy care nurse to a significant other at home: No Do you presently have visiting nurse or other home services: Yes ([employer] 3 hours/week) Alcohol intake: never Comment: SLEEPING Patient Tobacco Use Status: Never used Tobacco Tobacco use type: Cigarette Cigarettes Per Day: 5 Years Smoked: 6 Second Hand Smoke Exposure: No Use of substances other than those prescribed or required for medical reasons: No Are you DNR?: No Advance Directives: No Advance Directives Information Provided: Yes Meds Allergies Allergy/AdvReac Type Severity Reaction Status Date / Time sumatriptan [From IMITREX] Allergy Unknown MAKES Verified 08/21/23 11:05 MIGRAINES WORSE Home Medications Medication Instructions Recorded Confirmed Last Taken Type buprenorphine HCl 600 mcg buccal 600 mcg buccal Q12H 08/31/20 08/19/23 11/15/21 04:00 History film (Belbuca) [id number] 1 tab PO BID PRN Migraine Headache 08/31/20 08/19/23 11/15/21 04:00 History 50 mg-325 mg-40 mg tablet zolmitriptan 5 mg tablet (Zomig) 5 mg PO DAILY PRN Migraine Headache 08/31/20 08/19/23 Unknown History baclofen 20 mg tablet 20 mg PO TID PRN Back Pain 09/29/20 08/19/23 09/19/22 History cholecalciferol (vitamin D3) 125 125 mcg PO DAILY 09/29/20 09/19/22 Unknown History mcg (5,000 unit) capsule lidocaine 5 % topical patch 3 patch topical DAILY 09/29/20 08/19/23 11/15/21 04:00 History lorazepam 1 mg tablet 1 mg PO DAILY PRN Anxiety 09/29/20 09/19/22 11/15/21 04:00 History hydroxyzine HCl 25 mg tablet 25 mg PO QID 01/10/22 08/19/23 Unknown History divalproex 500 mg tablet,extended 500 mg PO TID 06/21/22 08/19/23 Unknown History release 24 hr hydromorphone 2 mg tablet 2 mg PO QID 06/21/22 08/19/23 09/19/22 History lidocaine 5 % topical ointment 1 appl topical DAILY 06/21/22 08/19/23 Unknown History trazodone 100 mg tablet 100 mg PO BEDTIME 06/21/22 08/19/23 Unknown History acetaminophen 500 mg tablet 500 - 1,000 mg PO Q8H 10/18/22 08/19/23 Unknown History ibuprofen 800 mg tablet 800 mg PO TID 10/18/22 08/19/23 Unknown History lorazepam 0.5 mg tablet 0.5 mg PO BID PRN Anxiety 10/18/22 08/19/23 Unknown History naproxen 500 mg tablet 500 mg PO BID 10/18/22 Unknown History pregabalin 50 mg capsule 50 mg PO BID 10/18/22 08/19/23 Unknown History sennosides 8.6 mg tablet (senna) 8.6 mg PO TID 10/18/22 Unknown History Exam Airway Mallampati Class: II TM Dist: >3cm Neck ROM: Limited Loose/Missing/Broken Teeth: Yes and Lower (incisiors) Heart: rrrr Lungs: cta Assessment and Plan Assessment Anesthesia Assessment: Anesthesia Plan Discussed Final Anesthetic Review NPO: Yes ASA Class: III Final Preanesthetic Review: No Changes in Pt Med Stat, Meds/Allgs Chart Reviewed, Consent Obtained/Reviewed and Anes Risks/Benef Reviewed Patient Risk: Intermediate Procedure Risk: Intermediate Anesthetic Plan Anesthetic Plan: GA and Agree w/ Assess. and Plan Disposition: Standard PACU
[2023-08-21 11:00] VITALS: BMI 23.4
[2023-08-21] MEDS: Lactated Ringers 1,000 ML 100 ML IVCONT (11:11)
[2023-08-21 11:12] VITALS: BP 124/69; PULSE 73; RESP 16; TEMP 35.9; O2SAT 99
--- NOTE | 2023-08-21 11:27 | P.HPSUR_ITS ---
Pre-Procedural Eval Section A Date of Service: 08/21/23 Section B Chief Complaint: Dysphagia, unspecified Relevant Family History (Specify if Yes): No Relevant Social History: None Present Medications: see Short Stay Collaborative assessment Medical History: Significant History (Anxiety Arthritis Back pain Borderline personality disorder Constipation by delayed colonic transit Foot pain, left Hemorrhoids with complication Migraine headache Opiate abuse, continuous) History of Previous Operations: Relevant previous surgery/procedure and date(s) (H/O hemorrhoidectomy History of section, classical History of esophagogastroduodenoscopy (EGD) History of hysterectomy History of laparoscopic appendectomy History of laparoscopic appendectomy History of lumbar discectomy History of pubovaginal sling Hx of colonoscopy S/P foot surgery, righ) Allergies: Allergies Allergy/AdvReac Type Severity Reaction Status Date / Time sumatriptan [From IMITREX] Allergy Unknown MAKES Verified 08/21/23 11:05 MIGRAINES WORSE Review of Systems Sugical H&P ROS: Negative: Constitution, Cardiovascular, Respiratory, Neurological, Psychiatric, Hem-Onc, Allergic/Immunologic, Gastrointestinal, Genitourinary, Musculoskeletal, Integumentary, Endocrine and Eye s/Ears/Nose/Throat Exam Surgical H&P Exam: Normal: HEENT, Normal: Heart, Normal: Lungs, Normal: Extremities, Normal: Abdomen, Normal: Skin and Normal: Neurological Plan Diagnosis/Plan: Unchanged I have reviewed the history and physical and performed a pertinent physical examination on my patient. No changes have occurred unless specified. Time Spent With Patient Time: Total time managing care of this patient today ____ minutes.
--- NOTE | 2023-08-21 11:36 | W.PM.OPN ---
Operative Note Operative Note Date of Service: 08/21/23 Narrative: Procedure Description: EGD Indication: dysphagia Anesthesia: MAC FLEXIBLE TRANSORAL UPPER GASTROINTESTINAL ENDOSCOPY UPPER ENDOSCOPY Consent: Indications for the procedure and potential complications of bleeding, perforation, reaction to medications and missed diagnosis were discussed with the patient and informed consent was obtained. Instrument: Olympus GIF H 190 J mid size upper endoscope Monitoring: Vital signs and clinical assessment, continuous EKG monitoring, Pulse oximetry, Carbon Dioxide monitoring and blood pressure monitoring were done throughout the procedure. Procedure: The patient was placed in the left lateral decubitis position and pre-procedure medications were administered and a bite block was placed. The endoscope was inserted into the mouth and advanced under direct vision to the third part of duodenum. A careful inspection was made as the upper endoscope was withdrawn including a retroflexed examination of the proximal stomach; Findings and interventions are described below. Findings: Larynx:normal Esophagus: GE junction at 40 cm, diaphragm hiatus at 40 cm, no varices or esophagitis. small inlet patch noted proximal esophagus, balloon dilation doen at UES and LES to 20 mm, no tears seen Stomach: Mild gastric erythema-bx taken, Grade 2 flap valve on retroflexed examination of the cardia. Pylorus dilatied to 20 mm using wire guidance and balloon, no tears seen, Duodenum: Normal bulb and descending duodenum, Intervention: esophageal dilation and pyloric dilation -wire guided with balloon --biopsy Impression/Findings: mild gastritis PLAN: regular diet as tolerated magic mouthwash
[2023-08-21 11:58] VITALS: BP 86/39; PULSE 54; RESP 16; TEMP 36.1; O2SAT 98
[2023-08-21 12:13] VITALS: BP 119/54; PULSE 62; RESP 20; O2SAT 97
[2023-08-21] MEDS: Mag&Al/Sim/Diphenhyd/Lidocaine 10 ML ORAL.SUSP PO (12:20)
[2023-08-21] MEDS: Acetaminophen 325 MG TABLET 975 MG PO (12:21)
[2023-08-21 12:28] VITALS: BP 129/61; PULSE 66; RESP 20; TEMP 36.4; O2SAT 97
== END 2023-08-21 14:02 | disposition home or self-care (01) ==
PROVIDERS: PCP Family Medicine; Visit Provider Internal Medicine Gastroenterology
PROC: (CPT 43249; principal; 2023-08-21 14:10)
DX: K29.70 Gastritis, unspecified, without bleeding (principal); K22.89 Other specified disease of esophagus; R13.10 Dysphagia, unspecified; J44.9 Chronic obstructive pulmonary disease, unspecified; F11.20 Opioid dependence, uncomplicated; Z79.899 Other long term (current) drug therapy; Z90.710 Acquired absence of both cervix and uterus
CPT/HCPCS: 43249; 43245; 43239; 88305; 88342; C1726; J2704

== ENCOUNTER → 2023-08-21 10:50 | Outpatient (BNV) | payer MEDICARE, MEDICAID, SELFPAY | PROVIDERS: PCP Family Medicine; Visit Provider Internal Medicine Gastroenterology | DX: R13.10 Dysphagia, unspecified (principal); K29.70 Gastritis, unspecified, without bleeding | CPT/HCPCS: 43239; 43245; 43249 ==

== ENCOUNTER 2024-04-12 10:35 | Day surgery (SDC) | payer MEDICARE, MEDICAID, SELFPAY ==
[2024-04-12 11:21] VITALS: BP 159/63; PULSE 64; RESP 18; TEMP 36.8; O2SAT 98; BMI 22.3
--- NOTE | 2024-04-12 11:26 | P.HPSUR_ITS ---
Pre-Procedural Eval Section A - 24 Hr Update-Section A only Date of Service: 04/12/24 Section B - Complete if H&P > 30 days Chief Complaint: Dysphagia, Relevant Family History (Specify if Yes): No Relevant Social History: None Present Medications: see Short Stay Collaborative assessment Medical History: Significant History (Hemorrhoids with complication Foot pain, left Anxiety Arthritis Migraine headache Back pain Constipation by delayed colonic transit Opiate abuse, continuous Borderline personality disorder) History of Previous Operations: Relevant previous surgery/procedure and date(s) (S/P foot surgery, right History of laparoscopic appendectomy History of esophagogastroduodenoscopy (EGD) Hx of colonoscopy History of laparoscopic appendectomy History of pubovaginal sling History of lumbar discectomy History of hysterectomy History of section, classical H/O hemorrhoidectom) Allergies: Allergies Allergy/AdvReac Type Severity Reaction Status Date / Time sumatriptan [From IMITREX] Allergy Unknown MAKES Verified 08/21/23 11:05 MIGRAINES WORSE Review of Systems Sugical H&P ROS: Negative: Constitution, Cardiovascular, Respiratory, Neurological, Psychiatric, Hem-Onc, Allergic/Immunologic, Gastrointestinal, Genitourinary, Musculoskeletal, Integumentary, Endocrine and Eyes/Ears/Nose/Throat Exam Surgical H&P Exam: Normal: HEENT, Normal: Heart, Normal: Lungs, Normal: Extremit ies, Normal: Abdomen, Normal: Skin and Normal: Neurological Plan Diagnosis/Plan: Unchanged I have reviewed the history and physical and performed a pertinent physical examination on my patient. No changes have occurred unless specified. EGD for dysphagia, with dilation Time Spent With Patient Time: Total time managing care of this patient today ____ minutes.
--- NOTE | 2024-04-12 11:32 | P.CONAN_ITS ---
[facility] Active Problems Active Problems: All Active Problems (Updated 11/14/22 @ 14:28 by Marek López MD) Small bowel obstruction due to adhesions (Acute) Gastropathy (Acute) Dysphagia (Acute) Constipation by delayed colonic transit (Acute) History of appendectomy (Acute) Cellulitis (Acute) Hemorrhoids with complication (Acute) Past Medical History Medical History Hemorrhoids with complication Foot pain, left Anxiety Arthritis Migraine headache Back pain Constipation by delayed colonic transit Opiate abuse, continuous Borderline personality disorder Family History Family History Mother Heart disease Father Heart disease Sister No problems noted. Son No problems noted. Son No problems noted. Family history of problems with anesthesia: No Surgical History Surgical History S/P foot surgery, right History of laparoscopic appendectomy History of esophagogastroduodenoscopy (EGD) Hx of colonoscopy History of laparoscopic appendectomy History of pubovaginal sling History of lumbar discectomy History of hysterectomy History of section, classical H/O hemorrhoidectomy Status post left foot surgery History of Problems with Anesthesia: No Social History Social History Household Members: Spouse Housing: House Are you a primary memory care program resident to a significant other at home: No Do you presently have visiting nurse or other home services: Yes ([employer] 3 hours/week) Alcohol intake: never Comment: SLEEPING Patient Tobacco Use Status: Never used Tobacco Tobacco use type: Cigarette Cigarettes Per Day: 5 Years Smoked: 6 Second Hand Smoke Exposure: No Have you been hit, kicked, punched, or otherwise hurt by someone within the past year? If so, by whom?: No Advance Directives: No Advance Directives Information Provided: Yes Nutrition Risks: No Nutritional Risk Meds Allergies Allergy/AdvReac Type Severity Reaction Status Date / Time sumatriptan [From IMITREX] Allergy Unknown MAKES Verified 08/21/23 11:05 MIGRAINES WORSE Home Medications ?Medication ?Instructions ?Recorded ?Confirmed ?Last Taken ?Type buprenorphine HCl 600 mcg buccal 600 mcg buccal Q12H 1208/19/23 11/15/21 04:00 History film (Belbuca) [id number] 1 tab PO BID PRN Migraine Headache 08/31/20 08/19/23 11/15/21 04:00 History 50 mg-325 mg-40 mg tablet zolmitriptan 5 mg tablet (Zomig) 5 mg PO DAILY PRN Migraine Headache 08/31/20 08/19/23 Unknown History baclofen 20 mg tablet 20 mg PO TID PRN Back Pain 09/29/20 08/21/23 08/21/23 History cholecalciferol (vitamin D3) 125 125 mcg PO DAILY 09/29/20 09/19/22 Unknown History mcg (5,000 unit) capsule lidocaine 5 % topical patch 3 patch topical DAILY 09/29/20 08/19/23 11/15/21 04:00 History lorazepam 1 mg tablet 1 mg PO DAILY PRN Anxiety 09/29/20 09/19/22 11/15/21 04:00 History hydroxyzine HCl 25 mg tablet 25 mg PO QID 01/10/22 08/19/23 Unknown History divalproex 500 mg tablet,extended 500 mg PO TID 06/21/22 08/19/23 Unknown History release 24 hr hydromorphone 2 mg tablet 2 mg PO QID 06/21/22 08/21/23 08/21/23 History lidocaine 5 % topical ointment 1 appl topical DAILY 06/21/22 08/19/23 Unknown History trazodone 100 mg tablet 100 mg PO BEDTIME 06/21/22 08/19/23 Unknown History acetaminophen 500 mg tablet 500 - 1,000 mg PO Q8H 10/18/22 08/19/23 Unknown History ibuprofen 800 mg tablet 800 mg PO TID 10/18/22 08/19/23 Unknown History lorazepam 0.5 mg tablet 0.5 mg PO BID PRN Anxiety 10/18/22 08/19/23 Unknown History naproxen 500 mg tablet 500 mg PO BID 10/18/22 Unknown History pregabalin 50 mg capsule 50 mg PO BID 10/18/22 08/21/23 08/21/23 History sennosides 8.6 mg tablet (senna) 8.6 mg PO TID 10/18/22 Unknown History Exam Height,Weight and Vital Signs: Height 5 ft 4 in Weight 58.967 kg Last Vital Signs Temp 98.2 F 04/12/24 11:21 Pulse 64 04/12/24 11:21 Resp 18 04/12/24 11:21 BP 159/63 H 04/12/24 11:21 Pulse Ox 98 04/12/24 11:21 O2 Del Method Room Air 04/12/24 11:21 Airway Mallampati Class: III TM Dist: >3cm Partial: Lower Loose/Missing/Broken Teeth: Yes and Lower Assessment and Plan Assessment Anesthesia Assessment: Anesthesia Plan Discussed and Chart Reviewed Final Anesthetic Review Family History of Problems with Anesthesia: No History of Problems with Anesthesia: No NPO: Yes ASA Class: II Final Preanesthetic Review: No Changes in Pt Med Stat, Meds/Allgs Chart Reviewed, Consent Obtained/Reviewed and Anes Risks/Benef Reviewed Patient Risk: Low Procedure Risk: Low Anesthetic Plan Anesthetic Plan: TIVA Disposition: Standard PACU
--- NOTE | 2024-04-12 11:46 | W.PM.OPN ---
Operative Note Operative Note Date of Service: 04/12/24 Narrative: Procedure Description: EGD Indication: [] Anesthesia: MAC FLEXIBLE TRANSORAL UPPER GASTROINTESTINAL ENDOSCOPY UPPER ENDOSCOPY Consent: Indications for the procedure and potential complications of bleeding, perforation, reaction to medications and missed diagnosis were discussed with the patient and informed consent was obtained. Instrument: Olympus GIF H 190 J mid size upper endoscope Monitoring: Vital signs and clinical assessment, continuous EKG monitoring, Pulse oximetry, Carbon Dioxide monitoring and blood pressure monitoring were done throughout the procedure. Procedure: The patient was placed in the left lateral decubitis position and pre-procedure medications were administered and a bite block was placed. The endoscope was inserted into the mouth and advanced under direct vision to the third part of duodenum. A careful inspection was made as the upper endoscope was withdrawn including a retroflexed examination of the proximal stomach; Findings and interventions are described below. Findings: Larynx:normal Esophagus: GE junction at 40 cm, diaphragm hiatus at 40 cm, no varices or esophagitis. small inlet patch noted proximal esophagus, balloon dilation done at UES and LES to 20 mm, no tears seen Stomach: Mild gastric erythema-bx taken, Grade 2 flap valve on retroflexed examination of the cardia. Pylorus dilatied to 20 mm using balloon, no tears seen, Duodenum: Normal bulb and descending duodenum, Intervention: esophageal dilation and pyloric dilation --biopsy Impression/Findings: mild gastritis PLAN: regular diet as tolerated magic mouthwash rept EGD with dilation as needed
[2024-04-12 11:54] VITALS: BP 112/53; PULSE 50; RESP 14; TEMP 36.1; O2SAT 100
[2024-04-12] MEDS: Acetaminophen 325 MG TABLET 975 MG PO (12:01)
[2024-04-12] MEDS: Mag&Al/Sim/Diphenhyd/Lidocaine 10 ML ORAL.SUSP PO (12:03)
[2024-04-12 12:09] VITALS: BP 143/67; PULSE 62; RESP 16; TEMP 36.1; O2SAT 98
== END 2024-04-12 12:47 | disposition home or self-care (01) ==
PROVIDERS: PCP Family Medicine; Visit Provider Internal Medicine Gastroenterology
PROC: 0DJ08ZZ Inspection of Upper Intestinal Tract, Via Natural or Artificial Opening Endoscopic (ICD-10-PCS; CPT 43235; principal; 2024-04-12 13:10)
DX: R13.10 Dysphagia, unspecified (principal); K29.50 Unspecified chronic gastritis without bleeding; Q39.8 Other congenital malformations of esophagus; K44.9 Diaphragmatic hernia without obstruction or gangrene; K64.8 Other hemorrhoids; K59.01 Slow transit constipation; J44.9 Chronic obstructive pulmonary disease, unspecified; G43.909 Migraine, unspecified, not intractable, without status migrainosus; F11.10 Opioid abuse, uncomplicated; F41.9 Anxiety disorder, unspecified; Z79.1 Long term (current) use of non-steroidal anti-inflammatories (NSAID); Z79.899 Other long term (current) drug therapy; Z88.8 Allergy status to other drugs, medicaments and biological substances; Z98.890 Other specified postprocedural states
CPT/HCPCS: 43249; 43245; 43239; 88305; 88313; 88342; C1726; J2704

== ENCOUNTER → 2024-04-12 10:35 | Outpatient (BNV) | payer MEDICARE, MEDICAID, SELFPAY | PROVIDERS: PCP Family Medicine; Visit Provider Internal Medicine Gastroenterology | DX: R13.10 Dysphagia, unspecified (principal); K31.1 Adult hypertrophic pyloric stenosis; K29.70 Gastritis, unspecified, without bleeding | CPT/HCPCS: 43239; 43245; 43249 ==

== ENCOUNTER 2024-11-24 10:21 | Day surgery (SDC) | payer MEDICARE, MEDICAID, SELFPAY ==
--- NOTE | 2024-11-23 10:29 | P.CONAN_ITS ---
Documented by User: Edwige Pappas NP 11/23/24 10:30 HPI - Anesthesia Eval Consult details Narrative: 68yo F for Upper Endoscopy Chronic opiate: buprenorphine, hydromorphone PMFSH Active Problems Active Problems: All Active Problems Small bowel obstruction due to adhesions (Acute) Gastropathy (Acute) Dysphagia (Acute) Constipation by delayed colonic transit (Acute) History of appendectomy (Acute) Cellulitis (Acute) Hemorrhoids with complication (Acute) Past Medical History Medical History Hemorrhoids with complication Foot pain, left Anxiety Arthritis Migraine headache Back pain Constipation by delayed colonic transit Opiate abuse, continuous Borderline personality disorder Family History Family History Mother Heart disease Father Heart disease Sister No problems noted. Son No problems noted. Son No problems noted. Family history of problems with anesthesia: No Surgical History Surgical History S/P foot surgery, right History of laparoscopic appendectomy History of esophagogastroduodenoscopy (EGD) Hx of colonoscopy History of laparoscopic appendectomy History of pubovaginal sling History of lumbar discectomy History of hysterectomy History of section, classical H/O hemorrhoidectomy Status post left foot surgery History of Problems with Anesthesia: No Social History Social History Household Members: Spouse Housing: House Are you a primary respiratory care specialist to a significant other at home: No Do you presently have visiting nurse or other home services: Yes ([employer] 3 hours/week) Alcohol intake: never Comment: SLEEPING Patient Tobacco Use Status: Never used Tobacco Tobacco use type: Cigarette Cigarettes Per Day: 5 Years Smoked: 6 Second Hand Smoke Exposure: No Use of substances other than those prescribed or required for medical reasons: No Have you been hit, kicked, punched, or otherwise hurt by someone within the past year? If so, by whom?: No Are you DNR?: No Advance Directives: No Advance Directives Information Provided: Yes Recently lost weight without trying: No Meds Allergies Allergy/AdvReac Type Severity Reaction Status Date / Time sumatriptan [From IMITREX] Allergy Unknown MAKES Verified 08/21/23 11:05 MIGRAINES WORSE Home Medications ?Medication ?Instructions ?Recorded ?Confirmed ?Last Taken ?Type buprenorphine HCl 600 mcg buccal 600 mcg buccal Q12H 08/31/20 08/19/23 11/15/21 04:00 History film (Belbuca) [id number] 1 tab PO BID PRN Migraine Headache 08/31/20 08/19/23 04/12/24 History 50 mg-325 mg-40 mg tablet zolmitriptan 5 mg tablet (Zomig) 5 mg PO DAILY PRN Migraine Headache 08/31/20 08/19/23 Unknown History baclofen 20 mg tablet 20 mg PO TID PRN Back Pain 09/29/20 08/21/23 04/12/24 History cholecalciferol (vitamin D3) 125 125 mcg PO DAILY 09/29/20 09/19/22 Unknown History mcg (5,000 unit) capsule lidocaine 5 % topical patch 3 patch topical DAILY 09/29/20 08/19/23 11/15/21 04:00 History lorazepam 1 mg tablet 1 mg PO DAILY PRN Anxiety 09/29/20 09/19/22 11/15/21 04:00 History hydroxyzine HCl 25 mg tablet 25 mg PO QID 01/10/22 08/19/23 04/12/24 History divalproex 500 mg tablet,extended 500 mg PO TID 06/21/22 08/19/23 Unknown History release 24 hr hydromorphone 2 mg tablet 2 mg PO QID 06/21/22 08/21/23 08/21/23 History lidocaine 5 % topical ointment 1 appl topical DAILY 06/21/22 08/19/23 Unknown History trazodone 100 mg tablet 100 mg PO BEDTIME 06/21/22 08/19/23 Unknown History acetaminophen 500 mg tablet 500 - 1,000 mg PO Q8H 10/18/22 08/19/23 Unknown History ibuprofen 800 mg tablet 800 mg PO TID 10/18/22 08/19/23 Unknown History lorazepam 0.5 mg tablet 0.5 mg PO BID PRN Anxiety 10/18/22 08/19/23 Unknown History naproxen 500 mg tablet 500 mg PO BID 10/18/22 Unknown History pregabalin 50 mg capsule 50 mg PO BID 0208/21/23 08/21/23 History sennosides 8.6 mg tablet (senna) 8.6 mg PO TID 10/18/22 Unknown History Assessment and Plan Assessment Anesthesia Assessment: Chart Reviewed Final Anesthetic Review Family History of Problems with Anesthesia: No History of Problems with Anesthesia: No Documented by User: Nenita Dobbins MD 11/24/24 12:11 PMF Past Medical History Medical History Hemorrhoids with complication Foot pain, left Anxiety Arthritis Migraine headache Back pain Constipation by delayed colonic transit Opiate abuse, continuous Borderline personality disorder Family History Family History Mother Heart disease Father Heart disease Sister No problems noted. Son No problems noted. Son No problems noted. Surgical History Surgical History S/P foot surgery, right History of laparoscopic appendectomy History of esophagogastroduodenoscopy (EGD) Hx of colonoscopy History of laparoscopic appendectomy History of pubovaginal sling History of lumbar discectomy History of hysterectomy History of section, classical H/O hemorrhoidectomy Status post left foot surgery Social History Social History Household Members: Spouse Housing: House Are you a primary respiratory care specialist to a significant other at home: No Do you presently have visiting nurse or other home services: Yes ([employer] 3 hours/week) Alcohol intake: never Comment: SLEEPING Patient Tobacco Use Status: Never used Tobacco Tobacco use type: Cigarette Cigarettes Per Day: 5 Years Smoked: 6 Second Hand Smoke Exposure: No Use of substances other than those prescribed or required for medical reasons: No Have you been hit, kicked, punched, or otherwise hurt by someone within the past year? If so, by whom?: No Are you DNR?: No Advance Directives: No Advance Directives Information Provided: Yes Recently lost weight without trying: No Meds Allergies Allergy/AdvReac Type Severity Reaction Status Date / Time sumatriptan [From IMITREX] Allergy Unknown MAKES Verified 08/21/23 11:05 MIGRAINES WORSE Home Medications ?Medication ?Instructions ?Recorded ?Confirmed ?Last Taken ?Type buprenorphine HCl 600 mcg buccal 600 mcg buccal Q12H 08/31/20 08/19/23 11/15/21 04:00 History film (Belbuca) [id number] 1 tab PO BID PRN Migraine Headache 08/31/20 08/19/23 04/12/24 History 50 mg-325 mg-40 mg tablet zolmitriptan 5 mg tablet (Zomig) 5 mg PO DAILY PRN Migraine Headache 08/31/20 08/19/23 Unknown History baclofen 20 mg tablet 20 mg PO TID PRN Back Pain 09/29/20 08/21/23 04/12/24 History cholecalciferol (vitamin D3) 125 125 mcg PO DAILY 09/29/20 09/19/22 Unknown History mcg (5,000 unit) capsule lidocaine 5 % topical patch 3 patch topical DAILY 09/29/20 08/19/23 11/15/21 04:00 History lorazepam 1 mg tablet 1 mg PO DAILY PRN Anxiety 09/29/20 09/19/22 11/15/21 04:00 History hydroxyzine HCl 25 mg tablet 25 mg PO QID 01/10/22 08/19/23 04/12/24 History divalproex 500 mg tablet,extended 500 mg PO TID 06/21/22 08/19/23 Unknown History release 24 hr hydromorphone 2 mg tablet 2 mg PO QID 06/21/22 08/21/23 08/21/23 History lidocaine 5 % topical ointment 1 appl topical DAILY 06/21/22 08/19/23 Unknown History trazodone 100 mg tablet 100 mg PO BEDTIME 06/21/22 08/19/23 Unknown History acetaminophen 500 mg tablet 500 - 1,000 mg PO Q8H 10/18/22 08/19/23 Unknown History ibuprofen 800 mg tablet 800 mg PO TID 10/18/22 08/19/23 Unknown History lorazepam 0.5 mg tablet 0.5 mg PO BID PRN Anxiety 10/18/22 08/19/23 Unknown History naproxen 500 mg tablet 500 mg PO BID 10/18/22 Unknown History pregabalin 50 mg capsule 50 mg PO BID 10/18/22 08/21/23 08/21/23 History sennosides 8.6 mg tablet (senna) 8.6 mg PO TID 10/18/22 Unknown History Exam Airway Mallampati Class: II (front bottom tooth loose next to partal, will leave partial in to support, stabilize tooth) TM Dist: >3cm Neck ROM: Full Partial: Upper and Lower Heart: rrr Lungs: cta Assessment and Plan Assessment Anesthesia Assessment: Anesthesia Plan Discussed Final Anesthetic Review NPO: Yes ASA Class: III Final Preanesthetic Review: No Changes in Pt Med Stat, Meds/Allgs Chart Reviewed and Consent Obtained/Reviewed Patient Risk: Intermediate Procedure Risk: Intermediate Anesthetic Plan Anesthetic Plan: MAC: Disposition: Standard PACU
[2024-11-24 11:45] VITALS: BMI 22.3
[2024-11-24] MEDS: Lactated Ringers 1,000 ML 100 ML IVCONT (11:56)
--- NOTE | 2024-11-24 12:21 | P.HPSUR_ITS ---
Pre-Procedural Eval Section A - 24 Hr Update-Section A only Date of Service: 11/24/24 Section B - Complete if H&P > 30 days Chief Complaint: Dysphagia, unspecified Relevant Family History (Specify if Yes): No Relevant Social History: None Present Medications: see Short Stay Collaborative assessment Medical History: Significant History (Hemorrhoids with complication Foot pain, left Anxiety Arthritis Migraine headache Back pain Constipation by delayed colonic transit Opiate abuse, continuous Borderline personality disorder) History of Previous Operations: Relevant previous surgery/procedure and date(s) (S/P foot surgery, right History of laparoscopic appendectomy History of esophagogastroduodenoscopy (EGD) Hx of colonoscopy History of laparoscopic appendectomy History of pubovaginal sling History of lumbar discectomy History of hysterectomy History of section, classical H/O hemorrhoidectom) Allergies: Allergies Allergy/AdvReac Type Severity Reaction Status Date / Time sumatriptan [From IMITREX] Allergy Unknown MAKES Verified 08/21/23 11:05 MIGRAINES WORSE Review of Systems Sugical H&P ROS: Negative: Constitution, Cardiovascular, Respiratory, Neurological, Psychiatric, Hem-Onc, Allergic/Immunologic, Gastrointestinal, Ge nitourinary, Musculoskeletal, Integumentary, Endocrine and Eyes/Ears/Nose/Throat Exam Surgical H&P Exam: Normal: HEENT, Normal: Heart, Normal: Lungs, Normal: Extremities, Normal: Abdomen, Normal: Skin and Normal: Neurological Plan Diagnosis/Plan: Unchanged I have reviewed the history and physical and performed a pertinent physical examination on my patient. No changes have occurred unless specified. Time Spent With Patient Time: Total time managing care of this patient today ____ minutes.
--- NOTE | 2024-11-24 12:43 | W.PM.OPN ---
Operative Note Operative Note Date of Service: 11/24/24 Narrative: Procedure Description: EGD Indication: dysphagia Anesthesia: MAC FLEXIBLE TRANSORAL UPPER GASTROINTESTINAL ENDOSCOPY UPPER ENDOSCOPY Consent: Indications for the procedure and potential complications of bleeding, perforation, reaction to medications and missed diagnosis were discussed with the patient and informed consent was obtained. Instrument: Olympus GIF H 190 J mid size upper endoscope Monitoring: Vital signs and clinical assessment, continuous EKG monitoring, Pulse oximetry, Carbon Dioxide monitoring and blood pressure monitoring were done throughout the procedure. Procedure: The patient was placed in the left lateral decubitis position and pre-procedure medications were administered and a bite block was placed. The endoscope was inserted into the mouth and advanced under direct vision to the third part of duodenum. A careful inspection was made as the upper endoscope was withdrawn including a retroflexed examination of the proximal stomach; Findings and interventions are described below. Findings: Larynx:normal Esophagus: GE junction at 40 cm, diaphragm hiatus at 40 cm, no varices or esophagitis. small inlet patch noted proximal esophagus, balloon dilation done at UES and LES to 20 mm, no tears seen Stomach: Mild gastric erythema, Grade 2 flap valve on retroflexed examination of the cardia. Pylorus dilatied to 20 mm using wire guided balloon technique, no tears seen, Duodenum: Normal bulb and descending duodenum, bx taken for disaccharidases Intervention: esophageal dilation and wire guided pyloric dilation --biopsy Impression/Findings: mild gastritis PLAN: regular diet as tolerated magic mouthwash rept EGD with dilation as needed if ongoing sx can consider APC ablation of inlet patch
[2024-11-24 12:52] VITALS: BP 107/52; PULSE 69; RESP 16; TEMP 36.4; O2SAT 96
[2024-11-24 13:05] VITALS: BP 113/57; PULSE 57; RESP 16; O2SAT 96
== END 2024-11-24 13:52 | disposition home or self-care (01) ==
PROVIDERS: PCP Family Medicine; Visit Provider Internal Medicine Gastroenterology
PROC: 0DJ08ZZ Inspection of Upper Intestinal Tract, Via Natural or Artificial Opening Endoscopic (ICD-10-PCS; CPT 43235; principal; 2024-11-24 14:10)
DX: K29.70 Gastritis, unspecified, without bleeding (principal); K31.1 Adult hypertrophic pyloric stenosis; Q39.8 Other congenital malformations of esophagus; R13.10 Dysphagia, unspecified; J44.9 Chronic obstructive pulmonary disease, unspecified
CPT/HCPCS: 43245; 43249; 43239; 36415; 82657; C1726; J1100; J2003; J2704; J3010

== ENCOUNTER → 2024-11-24 10:21 | Outpatient (BNV) | payer MEDICARE, MEDICAID, SELFPAY | PROVIDERS: PCP Family Medicine; Visit Provider Internal Medicine Gastroenterology | DX: R13.10 Dysphagia, unspecified (principal); K31.1 Adult hypertrophic pyloric stenosis; K29.70 Gastritis, unspecified, without bleeding | CPT/HCPCS: 43239; 43245; 43249 ==

== ENCOUNTER 2025-04-08 10:32 | Emergency (ER) | payer MEDICARE, MEDICAID, SELFPAY ==
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
--- NOTE | 2025-04-08 11:20 | PC.NURSE ---
Pt arrived to room 4 at 1034 via [facility] with Elias in place. Per EMS reports pt was found on bathroom floor unresponsive and last known well was approx 1 hr prior. EMS found pt to be in asystole, CPR was initiated and pt received a total of 7 round of Epi prior to ED arrival. ET tube, IO to right shoulder and #18 to left ac was placed by EMS prior to arrival. CPR continued, 2 doses of Epi administered and pt remained in asystole. Time of called by provider at 1038. Pt changed and positioned on stretcher. [facility] called at approx [phone], currently awaiting family arrival...
--- NOTE | 2025-04-08 11:52 | MHC.EDTECH ---
CALLED ME OFFICE PER . SPOKE TO ALYSSA.
--- OUTSIDE RECORDS SUMMARY | 2025-04-08 12:24 | XMS_ITS | Patient Health Record ---
Author Organization [facility] tional Pain Address [address] [place] [phone] Care Team Providers Care Cold Roller Name Role Phone Refugio Patel MD Primary Care Provider Reuben dayami JIMENEZ GHULAM Unavailable [phone] Allergies Allergen (clinical drug ingredient) Drug/Non Drug Allergy documented on EMR Reaction Allergy Type Onset Date Status sumatriptan Imitrex Unknown Drug Allergy Activ e Results Component Value Reference Range Notes BARBITURATES QUANTITATIVE (N ot yet reviewed by provider) Interpretation: Performing Lab:[facility], [address], [place], [place] [phone], Phone - , Director - Caesar Adams MD Notes/Report: Prescribed Medications: Hydrocodone (Hydrocodone-Conc), Pregabalin (Pregabalin) Secobarbital NEGATIVE 100 ng/mL Phenobarbital NEGATIVE 100 ng/mL Butalbital 2510 POSITIVE Inconsistent 100 ng/mL Presence of Butalbital is consistent with (Sandoptal, Fioricet, Fiorinal) OPIATES QUANTITATIVE (Not ye t reviewed by provider) Interpretation: Performing Lab:[facility], [address], [place], [place] [phone], Phone - , Director - Caesar Adams MD Notes/Report: Prescribed Medications: Hydrocodone (Hydrocodone-Conc), Pregabalin (Pregabalin) Codeine NEGATIVE 50 ng/mL Morphine NEGATIVE 50 ng/mL Hydrocodone NEGATIVE Consistent 50 ng/mL Hydromorphone >2000 73158 POSITIVE Consistent 50 ng/mL Hydromorphone is a metabolite of Hydrocodone. Its presence is consistent with Hydrocodone use. Hydromorphone (Dilaudid) is also available as a prescription drug. Certain patients can metabolize Morphine into Hydromorphone, in which case we would expect to see low levels of Hydromorphone relative to Morphine. Norhydrocodone NEGATIVE Consistent 50 ng/mL Dihydrocodeine NEGATIVE Consistent 50 ng/mL COCAINE QUANTITATIVE (Not ye t reviewed by provider) Interpretation: Performing Lab:[facility], [address], [place], [place] [phone], Phone - , Director - Caesar Adams MD Notes/Report: Prescribed Medications: No drugs were prescribed. CocaineMetabolite,U/CFM NEGATIVE 100 ng/ml OXYCODONE QUANTITATIVE (Not yet reviewed by provider) Interpretation: Performing Lab:[facility], [address], [place], [place] [phone], Phone - , Director - Caesar Adams MD Notes/Report: Prescribed Medications: No drugs were prescribed. Oxycodone NEGATIVE 50 ng/mL Oxymorphone NEGATIVE 50 ng/mL Noroxycodone NEGATIVE 50 ng/mL METHADONE QUANTITATIVE (Not yet reviewed by provider) Interpretation: Performing Lab:[facility], [address], [place], [place] [phone], Phone - , - Caesar Adams MD Notes/Report: Prescribed Medications: No drugs were prescribed. Methadone NEGATIVE 50 ng/mL EDDPMethadoneMetabolite NEGATIVE 50 ng/mL MDMA (ECSTASY) QUANTITATIVE (Not yet reviewed by provider) Interpretation: Performing Lab:[facility], [address], [place], [place] [phone], Phone - , - Caesar Adams MD Notes/Report: Prescribed Medications: No drugs were prescribed. MDMA(Ecstasy) NEGATIVE 100 ng/mL MethyleneDioxyEthylAmphe. NEGATIVE 100 ng/mL MethyleneDioxyAmphetamine NEGATIVE 100 ng/mL 6-ACETYLMORPHINE QUANTITATIV E (Not yet reviewed by provider) Interpretation: Performing Lab:[facility], [address], [place], [place] [phone], Phone - , Director - Caesar Adams MD Notes/Report: Prescribed Medications: No drugs were prescribed. 6MAM(HeroineMetabolite),U/CFM NEGATIVE 10 ng/mL TRAMADOL QUANTITATIVE (Not y et reviewed by provider) Interpretation: Performing Lab:[facility], [address], [place], [place] [phone], Phone - , Director - Caesar Adams MD Notes/Report: Prescribed Medications: No drugs were prescribed. Tramadol NEGATIVE 100 ng/ml O-Desmethyltramadol NEGATIVE 50 ng/mL NITRITEURINE 24 0-199 ug/mL PHURINE 5.6 4.5-9.0 pH SPECIFICGRAVITY 1.023 1.0010-1.0250 CREATININE 160 20-300 mg/dL If CREATININE is <20 mg/dL urine sample should be considered DILUTED. If NITRITE is 200-499 ug/mL the results should be evaluated with caution and possibly be considered invalid. If NITRITE is >499 ug/mL the urine sample should be considered ADULTERATED. If pH is 3.0-4.5 or 9.0-11.0 the results should be evaluated with caution and possibly be considered invalid. If pH is <3.0 or >11.0 the urine sample should be considered ADULTERATED. FENTANYL QUANTITATIVE (Not y et reviewed by provider) Interpretation: Performing Lab:[facility], [address], [place], [place] [phone], Phone - , Director - Caesar Adams MD Notes/Report: Prescribed Medications: No drugs were prescribed. Fentanyl NEGATIVE 2 ng/mL Norfentanyl NEGATIVE 10 ng/mL BUPRENORPHINE QUANTITATIVE ( Not yet reviewed by provider) Interpretation: Performing Lab:[facility], [address], [place], [place] [phone], Phone - , - Caesar Adams MD Notes/Report: Prescribed Medications: No drugs were prescribed. Naloxone NEGATIVE 20 ng/mL Buprenorphine NEGATIVE 10 ng/ml Norbuprenorphine NEGATIVE 10 ng/mL BENZODIAZEPINE QUANTITATIVE (Not yet reviewed by provider) Interpretation: Performing Lab:[facility], [address], [place], [place] [phone], Phone - , - Caesar Adams MD Notes/Report: Prescribed Medications: No drugs were prescribed. Alprazolam NEGATIVE 50 ng/mL Alpha-HydroxyAlprazolam NEGATIVE 50 ng/mL Nordiazepam NEGATIVE 50 ng/mL Oxazepam NEGATIVE 50 ng/mL Temazepam NEGATIVE 50 ng/mL Clonazepam NEGATIVE 50 ng/mL 7-AminoClonazepam NEGATIVE 50 ng/mL Lorazepam 1087 POSITIVE Inconsistent 50 ng/mL Presence of Lorazepam is consistent with (Ativan). Flurazepam NEGATIVE 50 ng/mL 2-HydroxyEthylFlurazepam NEGATIVE 50 ng/mL Desalkylflurazepam NEGATIVE 50 ng/mL Midazolam NEGATIVE 50 ng/mL Alpha-Hydroxymidazolam NEGATIVE 50 ng/mL Chlordiazepoxide NEGATIVE 50 ng/mL Diazepam NEGATIVE 50 ng/mL Flunitrazepam NEGATIVE 50 ng/mL MUSCLE RELAXANT, QUANTITATIV E (Not yet reviewed by provider) Interpretation: Performing Lab:[facility], [address], [place], [place] [phone], Phone - , Director - Caesar Adams MD Notes/Report: Prescribed Medications: No drugs were prescribed. Carisoprodol NEGATIVE 100 ng/mL Meprobamate NEGATIVE 100 ng/mL Cyclobenzaprine NEGATIVE 50 ng/mL Amphetamine (Not yet reviewe d by provider) Interpretation: Performing Lab:[facility], [address], [place], [place] [phone], Phone - , - Caesar Adams MD Notes/Report: Prescribed Medications: No drugs were prescribed. Amphetamine,U/CFM NEGATIVE 100 ng/mL Methamphetamine NEGATIVE 100 ng/mL BARBITURATES QUANTITATIVE (N ot yet reviewed by provider) Interpretation: Performing Lab:[facility], [address], [place], [place] [phone], Phone - , Director Theodore Adams MD Notes/Report: Prescribed Medications: No drugs were prescribed. Secobarbital NEGATIVE 100 ng/mL Phenobarbital NEGATIVE 100 ng/mL Butalbital 448 POSITIVE Inconsistent 100 ng/mL Presence of Butalbital is consistent with (Sandoptal, Fioricet, Fiorinal) OPIATES QUANTITATIVE (Not ye t reviewed by provider) Interpretation: Performing Lab:[facility], [address], [place], [place] [phone], Phone - , Director - Caesar Adams MD Notes/Report: Prescribed Medications: No drugs were prescribed. Codeine NEGATIVE 50 ng/mL Morphine NEGATIVE 50 ng/mL Hydrocodone NEGATIVE 50 ng/mL Hydromorphone >2000 7935 POSITIVE Inconsistent 50 ng/mL Hydromorphone is a metabolite of Hydrocodone. Its presence is consistent with Hydrocodone use. Hydromorphone (Dilaudid) is also available as a prescription drug. Certain patients can metabolize Morphine into Hydromorphone, in which case we would expect to see low levels of Hydromorphone relative to Morphine. Norhydrocodone NEGATIVE 50 ng/mL Dihydrocodeine NEGATIVE 50 ng/mL CREATININE (Not yet reviewed by provider) Interpretation: Performing Lab:[facility], [address], [place], [place] [phone], Phone - , Director - Caesar Adams MD Notes/Report: Prescribed Medications: No drugs were prescribed. CREATININE 160 20-300 mg/dL If CREATININE is <20 mg/dL urine sample should be considered DILUTED. If NITRITE is 200-499 ug/mL the results should be evaluated with caution and possibly be considered invalid. If NITRITE is >499 ug/mL the urine sample should be considered ADULTERATED. If pH is 3.0-4.5 or 9.0-11.0 the results should be evaluated with caution and possibly be considered invalid. If pH is <3.0 or >11.0 the urine sample should be considered ADULTERATED. LAB REPORT (Not yet reviewed by provider) Interpretation: Performing Lab:[facility], [address], [place], [place] [phone], Phone - , Director Theodore Adams MD Notes/Report: Prescribed Medications: No drugs were prescribed. PDF LAB LAB REPORT (Not yet reviewed by provider) Interpretation: Performing Lab:[facility], [address], [place], [place] [phone], Phone - , Director Theodore Adams MD Notes/Report: Prescribed Medications: Hydrocodone (Hydrocodone-Conc), Pregabalin (Pregabalin) PDF LAB CREATININE (Not yet reviewed by provider) Interpretation: Performing Lab:[facility], [address], [place], [place] [phone], Phone - , - Caesar Adams MD Notes/Report: Prescribed Medications: Hydrocodone (Hydrocodone-Conc), Pregabalin (Pregabalin) CREATININE 79 20-300 mg/dL If CREATININE is <20 mg/dL urine sample should be considered DILUTED. If NITRITE is 200-499 ug/mL the results should be evaluated with caution and possibly be considered invalid. If NITRITE is >499 ug/mL the urine sample should be considered ADULTERATED. If pH is 3.0-4.5 or 9.0-11.0 the results should be evaluated with caution and possibly be considered invalid. If pH is <3.0 or >11.0 the urine sample should be considered ADULTERATED. Amphetamine (Not yet reviewe d by provider) Interpretation: Performing Lab:[facility], [address], [place], [place] [phone], Phone - , - Caesar Adams MD Notes/Report: Prescribed Medications: Hydrocodone (Hydrocodone-Conc), Pregabalin (Pregabalin) Amphetamine, U/CFM NEGATIVE 100 ng/mL Methamphetamine NEGATIVE 100 ng/mL BENZODIAZEPINE QUANTITATIVE (Not yet reviewed by provider) Interpretation: Performing Lab:[facility], [address], [place], [place] [phone], Phone - , Director Theodore Adams MD Notes/Report: Prescribed Medications: Hydrocodone (Hydrocodone-Conc), Pregabalin (Pregabalin) Alprazolam NEGATIVE 50 ng/mL Alpha-HydroxyAlprazolam NEGATIVE 50 ng/mL Nordiazepam NEGATIVE 50 ng/mL Oxazepam NEGATIVE 50 ng/mL Temazepam NEGATIVE 50 ng/mL Clonazepam NEGATIVE 50 ng/mL 7-AminoClonazepam NEGATIVE 50 ng/mL Lorazepam NEGATIVE 50 ng/mL Flurazepam NEGATIVE 50 ng/mL 2-HydroxyEthylFlurazepam NEGATIVE 50 ng/mL Desalkylflurazepam NEGATIVE 50 ng/mL Midazolam NEGATIVE 50 ng/mL Alpha-Hydroxymidazolam NEGATIVE 50 ng/mL Chlordiazepoxide NEGATIVE 50 ng/mL Diazepam NEGATIVE 50 ng/mL Flunitrazepam NEGATIVE 50 ng/mL 6-ACETYLMORPHINE QUANTITATIV E (Not yet reviewed by provider) Interpretation: Performing Lab:[facility], [address], [place], [place] [phone], Phone - , Director - Caesar Adams MD Notes/Report: Prescribed Medications: Hydrocodone (Hydrocodone-Conc), Pregabalin (Pregabalin) 6MAM (Heroine Metabolite), U/CFM NEGATIVE 10 ng/mL MUSCLE RELAXANT, QUANTITATIV E (Not yet reviewed by provider) Interpretation: Performing Lab:[facility], [address], [place], [place] [phone], Phone - , Director - Caesar Adams MD Notes/Report: Prescribed Medications: Hydrocodone (Hydrocodone-Conc), Pregabalin (Pregabalin) Carisoprodol NEGATIVE 100 ng/mL Meprobamate NEGATIVE 100 ng/mL Cyclobenzaprine NEGATIVE 50 ng/mL BUPRENORPHINE QUANTITATIVE ( Not yet reviewed by provider) Interpretation: Performing Lab:[facility], [address], [place], [place] [phone], Phone - , Director - Caesar Adams MD Notes/Report: Prescribed Medications: Hydrocodone (Hydrocodone-Conc), Pregabalin (Pregabalin) Naloxone NEGATIVE 20 ng/mL Buprenorphine NEGATIVE 10 ng/ml Norbuprenorphine NEGATIVE 10 ng/mL FENTANYL QUANTITATIVE (Not y et reviewed by provider) Interpretation: Performing Lab:[facility], [address], [place], [place] [phone], Phone - , Director - Caesar Adams MD Notes/Report: Prescribed Medications: Hydrocodone (Hydrocodone-Conc), Pregabalin (Pregabalin) Fentanyl NEGATIVE 2 ng/mL Norfentanyl NEGATIVE 10 ng/mL TRAMADOL QUANTITATIVE (Not y et reviewed by provider) Interpretation: Performing Lab:[facility], [address], [place], [place] [phone], Phone - , Director - Caesar Adams MD Notes/Report: Prescribed Medications: Hydrocodone (Hydrocodone-Conc), Pregabalin (Pregabalin) Tramadol NEGATIVE 100 ng/ml O-Desmethyltramadol NEGATIVE 50 ng/mL NITRITE URINE 19 0-199 ug/mL PH URINE 8.1 4.5-9.0 pH SPECIFIC GRAVITY 1.012 1.0010-1.0250 CREATININE 79 20-300 mg/dL If CREATININE is <20 mg/dL urine sample should be considered DILUTED. If NITRITE is 200-499 ug/mL the results should be evaluated with caution and possibly be considered invalid. If NITRITE is >499 ug/mL the urine sample should be considered ADULTERATED. If pH is 3.0-4.5 or 9.0-11.0 the results should be evaluated with caution and possibly be considered invalid. If pH is <3.0 or >11.0 the urine sample should be considered ADULTERATED. MDMA (ECSTASY) QUANTITATIVE (Not yet reviewed by provider) Interpretation: Performing Lab:[facility], [address], [place], [place] [phone], Phone - , Director - Caesar Adams MD Notes/Report: Prescribed Medications: Hydrocodone (Hydrocodone-Conc), Pregabalin (Pregabalin) MDMA (Ecstasy) NEGATIVE 100 ng/mL MethyleneDioxyEthylAmphe. NEGATIVE 100 ng/mL MethyleneDioxyAmphetamine NEGATIVE 100 ng/mL METHADONE QUANTITATIVE (Not yet reviewed by provider) Interpretation: Performing Lab:[facility], [address], [place], [place] [phone], Phone - , Director - Caesar Adams MD Notes/Report: Prescribed Medications: Hydrocodone (Hydrocodone-Conc), Pregabalin (Pregabalin) Methadone NEGATIVE 50 ng/mL EDDP Methadone Metabolite NEGATIVE 50 ng/mL OXYCODONE QUANTITATIVE (Not yet reviewed by provider) Interpretation: Performing Lab:[facility], [address], [place], [place] [phone], Phone - , Director - Caesar Adams MD Notes/Report: Prescribed Medications: Hydrocodone (Hydrocodone-Conc), Pregabalin (Pregabalin) Oxycodone NEGATIVE 50 ng/mL Oxymorphone NEGATIVE 50 ng/mL Noroxycodone NEGATIVE 50 ng/mL COCAINE QUANTITATIVE (Not ye t reviewed by provider) Interpretation: Performing Lab:[facility], [address], [place], [place] [phone], Phone - , Director - Caesar Adams MD Notes/Report: Prescribed Medications: Hydrocodone (Hydrocodone-Conc), Pregabalin (Pregabalin) Cocaine Metabolite, U/CFM NEGATIVE 100 ng/ml Reason For Referral No Information Medications Medication SIG (Take, Route, Frequency, Duration) Notes Start Date End Date Status Estradiol creme she stop on 08/11/2024 because have breakout from the creme Not-Taking LORazepam 1 MG 1 tablet Orally Active Metoclopramide HCl 5 MG 1 tablet before meals Orally Twice a day; Duration: 30 day(s) Not-Taking Naloxone HCl 4 MG/0.1ML inhale 4 mg Nasally as directed Active Celecoxib Not-Taking Naloxone HCl 0.4 MG/ML as directed Injection qd prn; Duration: 30 days 04/26/2020 Active Naprosyn 500 MG 1 tablet with food or milk as needed Orally every 12 hrs prn; Duration: 90 days 08/16/2022 Not-Taking diazePAM 10 MG 1-2 tablet one hour prior to pain procedure; Orally daily; Duration: 1 days 03/19/2021 Active Belbuca 600 MCG 1 film to the gum Bucally every 12 hrs; Duration: 30 days Not-Taking Morphine Sulfate 15 MG 1 tablet as needed Orally every 8 hrs; Duration: 30 days Active Lidocaine 5 % APPLY 3 PATCHES REMOVE AFTER 12 HOURS EXTERNALLY ONCE A DAY 30 DAYS; Duration: 30 Active [place]-3 Fatty Acids 1000 MG 1 capsule Orally Once a day Active Doxepin HCl 5 % 1 gram to affected area Externally Four times a day Not-Taking traZODone HCl 100 MG 1 tablet Orally TID Active Lovastatin 40 MG 1 tablet Orally Once a day Not-Taking Vitamin D-3 Active Topiramate 100 MG 1 tablet Orally TID Not-Taking ZOLMitriptan 5 MG 1 tablet Orally Once a day Active oxyCODONE HCl 10 MG 1 tablet as needed Orally TID-QID; Duration: 5 days 05/04/2020 Not-Taking Ursodiol Not-Taking Lidocaine 5 % APPLY 1 APPLICATION EXTERNALLY 3 TIMES A DAY NEEDED FOR 30 DAYS; Duration: 30 Active Aspirin-Acetaminophen -Caffeine 250-250-65 MG 2 tablets Orally every 6 hrs Not-Taking Pregabalin 50 MG TAKE 1 CAPSULE BY MOUTH TWICE A DAY FOR 30 DAYS 01/29/2023 Active Baclofen 20 MG 1 tablet Orally Three times a day Not-Taking Ibuprofen 800 MG 1 tablet with food or milk as needed Orally every 8 hrs; Duration: 90 days Active Buprenorphine HCl 600 MCG 1 film to the gum Bucally BID Not-Taking Tums 500 MG 1 tablet Orally Once a day; Duration: 30 day(s) Not-Taking Gabapentin 100 MG 1 capsule Orally Three times a day; Duration: 30 days 05/01/2023 Active Lidocaine 5 % 3 patches Externally Once a day; Duration: 30 days Not-Taking HYDROmorphone HCl 4 MG 1 tablet as needed Orally every 6 hrs; Duration: 27 days As needed, do not fill lorazepam for the patient Partial Fill upon Patient Request 03/29/2025 Active Acetaminophen-Caffein e 500-65 MG 2 tablets as needed Orally Three times a day Active Morphine Sulfate 15 MG 1 tablet as needed Orally every 8 hrs; Duration: 28 days As needed Partial Fill upon Patient Request 07/30/2024 Active Moderna COVID-19 Vaccine first dose 01/14/21 Active Pregabalin 100 MG 1 capsule Orally every 8 hours; Duration: 90 days m47.816 lumbar spondylosis, the patient can request partial refill 01/28/2025 Active diphenhydrAMINE-Aceta minophen 12.5-325 MG Orally Active Lidocaine 5 % 1 application as needed Externally Twice a day; Duration: 30 days 06/27/2023 Active Ylhiarkvkr-Zqdihwk-Oz ffeine 50-325-40 MG 1 capsule as needed Orally every 4 hrs Not-Taking Lyrica 100 MG 1 capsule Orally every 8 hours; Duration: 90 days m47.816 lumbar spondylosis, the patient can request partial refill 08/30/2023 Active Lidocaine HCl 4 % as directed Externally 3patches,12 h on 12 h off; Duration: 30 days Not-Taking Acetaminophen Extra Strength 500 MG TAKE 1-2 TABLETS BY MOUTH EVERY 8 HOURS; Duration: 30 Active Doxycycline Hyclate 100 MG 1 tablet Orally Twice a day Not-Taking Morphine Sulfate 15 MG 1 tablet as needed Orally every 12 hours; Duration: 30 days Partial Fill upon Patient Request 12/31/2023 Active Lidocaine 5 % 1 patch remove after 12 hours Externally Once a day; Duration: 30 days Not-Taking Divalproex Sodium 500 MG 3 tablets Orally at bedtime Active Social History Tobacco Use: Social History Observation Description Date Details (start date - stop date) Never Smoker NA - NA Alcohol Screen (Audit-C) Question Answer Notes Did you have a drink contain ing alcohol in the past year? Yes How often did you have a dri nk containing alcohol in the past year? Monthly or less (1 point) How many drinks did you have on a typical day when you were drinking in the past year? 1 or 2 drinks (0 point) How often did you have 6 or more drinks on one occasion in the past year? Never (0 point) Points 1 Interpretation Negative Tobacco Control (Standard) Question Answer Notes Tobacco use: Nonsmoker Section Notes: recently started smoking aga in recently started smoking aga in recently started smoking aga in recently started smoking aga in recently started smoking aga in recently started smoking aga in recently started smoking aga in recently started smoking aga in recently started smoking aga in recently started smoking aga in recently started smoking aga in recently started smoking aga in recently started smoking aga in recently started smoking aga in recently started smoking aga in recently started smoking aga in recently started smoking aga in recently started smoking aga in recently started smoking aga in recently started smoking aga in recently started smoking aga in recently started smoking aga in recently started smoking aga in recently started smoking aga in recently started smoking aga in recently started smoking aga in recently started smoking aga in recently started smoking aga in recently started smoking aga in recently started smoking aga in recently started smoking aga in recently started smoking aga in recently started smoking aga in recently started smoking aga in recently started smoking aga in recently started smoking aga in recently started smoking aga in recently started smoking aga in recently started smoking aga in recently started smoking aga in recently started smoking aga in recently started smoking aga in recently started smoking aga in recently started smoking aga in recently started smoking aga in recently started smoking aga in recently started smoking aga in recently started smoking aga in recently started smoking aga in recently started smoking aga in Problems Problem Type SNOMED Code ICD Code Onset Dates Problem Status W/U Status Risk Notes Problem Complex regional pain syndrome type I of right lower limb (disorder) (349059748070175) Complex regional pain syndrome I of right lower limb (G90.521) Active confirmed Problem Complex regional pain syndrome type I of left lower limb (disorder) (821673253135907) Complex regional pain syndrome I of left lower limb (G90.522) Active confirmed Problem Osteoarthritis of knee (991421327) Bilateral primary osteoarthritis of knee (M17.0) Active confirmed Problem Localized, primary osteoarthritis of the shoulder region (203997480) Primary osteoarthritis, right shoulder (M19.011) Active confirmed Problem Sacroiliitis, no t elsewhere classified (M46.1) Active confirmed Problem Lumbosacral spondylosis without myelopathy (52932979) Spondylosis without myelopathy or radiculopathy, lumbar region (M47.816) 05/08/20 23 Active confirmed Low Problem Lumbar radiculopathy (264796649) Radiculopathy, lumbar region (M54.16) Active confirmed Vital Signs Heart Rate 80 /min 03/21/2025 Temperature 97.6 degrees Fahrenheit 03/21/2025 Blood pressure diastolic 87 mm Hg 03/21/2025 Oximetry 97 % 03/21/2025 Height 64 in 03/21/2025 Blood pressure systolic 174 mm Hg 03/21/2025 Weight 128 lbs 03/21/2025 BMI 21.97 kg/m2 03/21/2025 Encounters Encounter Location Date Provider Diagnosis [facility] [address] [place] [phone] 05/03/2024 GHULAM JIMENEZ half-way (current) use of opiate analgesic Z79.891 ; Primary osteoarthritis, right shoulder M19.011 ; Sacroiliitis, not elsewhere classified M46.1 and Spondylosis without myelopathy or radiculopathy, lumbar region M47.816 [facility] [address] [place] [phone] 05/31/2024 GHULAM FARID support staff (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) use of opiate analgesic Z79.891 ; Primary osteoarthritis, right shoulder M19.011 ; Sacroiliitis, not elsewhere classified M46.1 and Spondylosis without myelopathy or radiculopathy, lumbar region M47.[address] [phone] 06/29/2024 GHULAM FARID half-way (current) use of opiate analgesic Z79.891 ; Primary osteoarthritis, right shoulder M19.011 ; Sacroiliitis, not elsewhere classified M46.1 and Spondylosis without myelopathy or radiculopathy, lumbar region M47.816 [facility] [address] [address] 07/26/2024 GHULAM FARID support staff (current) use of opiate analgesic Z79.891 ; Primary osteoarthritis, right shoulder M19.011 ; Sacroiliitis, not elsewhere classified M46.1 and Spondylosis without myelopathy or radiculopathy, lumbar region M47.816 [facility] [address] [place] [id number] 08/16/2024 GHULAM FARID half-way (current) use of opiate analgesic Z79.891 ; Primary osteoarthritis, right shoulder M19.011 ; Sacroiliitis, not elsewhere classified M46.1 and Spondylosis without myelopathy or radiculopathy, lumbar region M47.816 [facility] [address] [address] 09/20/2024 GHULAM FARID support staff (current) use of opiate analgesic Z79.891 ; Primary osteoarthritis, right shoulder M19.011 ; Sacroiliitis, not elsewhere classified M46.1 and Spondylosis without myelopathy or radiculopathy, lumbar region M47.816 [facility] [address] [place] [phone] 10/19/2024 GHULAM FARID half-way (current) use of opiate analgesic Z79.891 ; Primary osteoarthritis, right shoulder M19.011 ; Sacroiliitis, not elsewhere classified M46.1 and Spondylosis without myelopathy or radiculopathy, lumbar region M47.816 [facility] [address] [place] [id number] 11/23/2024 [facility] support staff (current) use of opiate analgesic Z79.891 ; Primary osteoarthritis, right shoulder M19.011 ; Sacroiliitis, not elsewhere classified M46.1 and Spondylosis without myelopathy or radiculopathy, lumbar region M47.816 [facility] [address] [place] [phone] 12/20/2024 [facility] half-way (current) use of opiate analgesic Z79.891 ; Primary osteoarthritis, right shoulder M19.011 ; Sacroiliitis, not elsewhere classified M46.1 and Spondylosis without myelopathy or radiculopathy, lumbar region M47.816 [facility] [address] [place] [id number] 01/24/2025 [facility] support staff (current) use of opiate analgesic Z79.891 ; Primary osteoarthritis, right shoulder M19.011 ; Sacroiliitis, not elsewhere classified M46.1 and Spondylosis without myelopathy or radiculopathy, lumbar region M47.816 [facility] [address] [place] [id number] 02/21/2025 [facility] half-way (current) use of opiate analgesic Z79.891 ; Primary osteoarthritis, right shoulder M19.011 ; Sacroiliitis, not elsewhere classified M46.1 and Spondylosis without myelopathy or radiculopathy, lumbar region M47.816 [facility] [address] [place] [phone] 03/21/2025 [facility] half-way (current) use of opiate analgesic Z79.891 ; Primary osteoarthritis, right shoulder M19.011 ; Sacroiliitis, not elsewhere classified M46.1 and Spondylosis without myelopathy or radiculopathy, lumbar region M47.816 [facility] [address] [place] [phone] 04/30/2024 [facility] [address] [place] [id number] 05/18/2024 [facility] [address] [facility] [place] [address] 05/21/2024 [facility] [address] [facility] [place] [address] 06/21/2024 [facility] [address] [facility] [place] [address] 06/29/2024 GHULAM FARID half-way (current) use of opiate analgesic Z79.891 [facility] [address] [facility] [place] [address] 07/26/2024 GHULAM KISHAID [facility] [address] [facility] [place] [address] 07/26/2024 [facility] [address] [facility] [place] [address] 07/27/2024 GHULAM FARID support staff (current) use of opiate analgesic Z79.891 [facility] [address] [place] [address], [place] [address] 07/27/2024 GHULAM FARID half-way (current) use of opiate analgesic Z79.891 [facility] [address] [facility] [place] [address] 08/16[facility] [address] [facility] [place] [address] 08/16/20[facility] [address] [facility] [place] [address] 10/19/2024 GHULAM FARID half-way (current) use of opiate analgesic Z79.891 [facility] [address] [facility] [place] [address] 11/01/2024 GHULAM FARID support staff (current) use of opiate analgesic Z79.891 [facility] [address] [facility] [place] [address] 11/15/2024 GHULAM FARID [facility] [address] [facility] [place] [address] 11/16/2024 GHULAM FARID half-way (current) use of opiate analgesic Z79.891 [facility] [address] [facility] [place] [address] 11/16/2024 GHULAM FARID support staff (current) use of opiate analgesic Z79.891 [facility] [address] [facility] [place] [address] 11/23/2024 [facility] [address] [facility] [place] [address] 11/25/20[facility] [address] [facility] [place] [address] 11/25/2024 [facility] [address] [facility] [place] [address] 11/30/2024 GHULAM [facility] [address] [facility] [place] [address] 12/02/2024 [facility] [address] [facility] [place] [address] 12/06/2024 GHULAM FARID half-way (current) use of opiate analgesic Z79.891 [facility] [address] [place] [address], [place] [address] 01/17/2025 [facility] [address] [facility] [place] [address] 01/24/2025 GHULAM FARID half-way (current) use of opiate analgesic Z79.891 [facility] [address] [place] [address], [place] [address] 01/25/2025 [facility] [address] [facility] [place] [address] 01/28/2025 GHULAM FARID support staff (current) use of opiate analgesic Z79.891 [facility] [address] [place] [address], [place] [address] 02/04/2025 [facility] [address] [place] [address], [place] [address] 03/28/2025 GHULAM FARID support staff (current) use of opiate analgesic Z79.891 [facility] [address] [place] [address], [place] [address] 09/13/2024 [facility] [address] [place] [address], [place] [address] 10/28/2024 GHULAM FARID Assessments Encounter Date Diagnosis (ICD Code) Assessment Notes Treatment Notes Treatment Clinical Notes Section Notes 05/03/2024 Primary osteoarthritis, right shoulder (ICD-10 - M19.011) 05/03/2024 half-way (current) use of opiate analgesic (ICD-10 - Z79.891) Regarding medication management, I checked the prescription monitoring program, it was appropriate, the last urine drug screen test done on 02/09/24 reviewed positive hydromorphone, lorazepam, The patient occasionally takes Fioricet for her headachewe told the patient about the black box warning, we refilled the patient's hydromorphone , the patient is reporting that she feels no side effects from the Lyrica and she feels better on current dose of Lyrica, I refilled the patient's pain medications , discussed with the patient the black box warning we will start weaning her slowly 1 tablet every months from the lorazepam and she agreed on that I told the patient about the black box warning she is reporting no side effects I asked her to ask her prescriber for an alternative for anxiety Regarding physical therapy, we will request reports from the physical therapy regarding the patient's treatments Regarding physical therapy, continue lumbar physical therapy exercises Regarding radiological studies, I reviewed the new lumbar MRI that was done on 10/16/22 that revealed multilevel lumbar facet arthropathies starting from L3 down to S1, and 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 root Regarding interventional procedures,for the shoulder the patient is reporting 90% relief of pain in the shoulder after the last injection so there is no need for interventions at this point I recommended physical therapy exercises Regarding the lumbar pain the patient is experiencing a flareup of pain in the lumbar spine again after injuring 90% relief of pain for more than 9 months following the last lumbar radiofrequency ablation procedure based on this we will repeat the procedure today since that is the patient's request 05/31/2024 Primary osteoarthritis, right shoulder (ICD-10 - M19.011) 05/31/2024 support staff (current) use of opiate analgesic (ICD-10 - Z79.891) Regarding medication management, I checked the prescription monitoring program, it was appropriate, the last urine drug screen test done on 02/09/24 reviewed positive hydromorphone, lorazepam, The patient occasionally takes Fioricet for her headachewe told the patient about the black box warning, we refilled the patient's hydromorphone , the patient is reporting that she feels no side effects from the Lyrica and she feels better on current dose of Lyrica, I refilled the patient's pain medications , discussed with the patient the black box warning we will start weaning her slowly lorazepam and she agreed to that plan she will continue weaning herself off slowly I told the patient about the black box warning she is reporting no side effects I asked her to ask her prescriber for an alternative for anxiety, the patient will decrease her intake of her lorazepam to half tablet every night instead of 1 tablet every night, and we will count them next month when she brings her bottles Regarding physical therapy, we will request reports from the physical therapy regarding the patient's treatments Regarding physical therapy, continue lumbar physical therapy exercises Regarding radiological studies, I reviewed the new lumbar MRI that was done on 10/16/22 that revealed multilevel lumbar facet arthropathies starting from L3 down to S1, and 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 Contact Pharmacy by other means 06/29/2024 Primary osteoarthritis, right shoulder (ICD-10 - M19.011) 06/29/2024 half-way (current) use of opiate analgesic (ICD-10 - Z79.891) Regarding medication management, I checked the prescription monitoring program, it was appropriate, the last urine drug screen test done on 02/09/24 reviewed positive hydromorphone, lorazepam, The patient occasionally takes Fioricet for her headachewe told the patient about the black box warning, we refilled the patient's hydromorphone , the patient is reporting that she feels no side effects from the Lyrica and she feels better on current dose of Lyrica, I refilled the patient's pain medications , discussed with the patient the black box warning we will start weaning her slowly 1 tablet every months from the lorazepam and she agreed on that continues to wean off the lorazepam, we ordered a urine drug screen test today to confirm compliance I told the patient about the black box warning she is reporting no side effects I asked her to ask her prescriber for an alternative for anxiety Regarding physical therapy, we will request reports from the physical therapy regarding the patient's treatments Regarding physical therapy, continue lumbar physical therapy exercises Regarding radiological studies, I reviewed the new lumbar MRI that was done on 10/16/22 that revealed multilevel lumbar facet arthropathies starting from L3 down to S1, and 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 root Regarding interventional procedures,for the shoulder the patient is reporting 90% relief of pain in the shoulder after the last injection so there is no need for interventions at this point I recommended physical therapy exercises Regarding the lumbar pain the patient reported 90% relief of pain in the lumbar spine after the lumbar radiofrequency ablation she was able to stand, walk, sleep without lumbar pain since the procedure so there is no need for interventions for the lumbar spine at this point I recommended lumbar core exercises Regarding the sacroiliac pain the patient is reporting recurrence of pain in the sacroiliac area the last sacroiliac joint joint injection done in March offered the patient 90% relief of pain improved mobility activity analgesia range of motion for several months she was able to sit and sleep without pain continued physical therapy exercises, nonsteroidals, Tylenol since then but the pain recurred again last 3 days and has been severe, the patient has functional difficulty sitting and sleeping due to the buttock pain she has been suffering from that pain for more than 2 years the pain has been progressively getting worse she has tried nonsteroidals, Tylenol pain score is more than VAS of 6 she has positive tests for the Jhony, shear, thigh thrust, compression, Gaenslen, Conrad's test on exam based on that I will offer the patient a trial of bilateral sacroiliac joint injections to help relieve the pain 06/29/2024 support staff (current) use of opiate analgesic (ICD-10 - Z79.891) 07/26/2024 Primary osteoarthritis, right shoulder (ICD-10 - M19.011) 07/26/2024 support staff (current) use of opiate analgesic (ICD-10 - Z79.891) Regarding medication management, I checked the prescription monitoring program, it was appropriate, the last urine drug screen test done on 02/09/24 reviewed positive hydromorphone, lorazepam, The patient occasionally takes Fioricet for her headachewe told the patient about the black box warning, we refilled the patient's hydromorphone , the patient is reporting that she feels no side effects from the Lyrica and she feels better on current dose of Lyrica, I refilled the patient's pain medications , discussed with the patient the black box warning we will start weaning her slowly 1 tablet every months from the lorazepam and she agreed on that continues to wean off the lorazepam, we ordered a urine drug screen test today to confirm compliance I told the patient about the black box warning she is reporting no side effects I asked her to ask her prescriber for an alternative for anxiety Regarding physical therapy, we will request reports from the physical therapy regarding the patient's treatments Regarding physical therapy, continue lumbar physical therapy exercises Regarding radiological studies, I reviewed the new lumbar MRI that was done on 10/16/22 that revealed multilevel lumbar facet arthropathies starting from L3 down to S1, and 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 root Regarding interventional procedures,for the shoulder the patient is reporting 90% relief of pain in the shoulder after the last injection for more than 3 months the patient was able to lift up objects, cook, clean, sleep without pain but the pain recurred again last 2 weeks and has been severe for the last week she is here requesting repeating the injection pain score is more than VAS of 6 she has tried nonsteroidals, Tylenol, physical therapy exercises for the last 3 months lately with no relief based on that we will offer the patient a right shoulder joint injection again to help relieve her pain Regarding the lumbar pain the patient reported 90% relief of pain in the lumbar spine after the lumbar radiofrequency ablation she was able to stand, walk, sleep without lumbar pain since the procedure so there is no need for interventions for the lumbar spine at this point I recommended lumbar core exercises Regarding the sacroiliac pain the patient is reporting that the last sacroiliac joint injection done last visit offered the patient 90% relief of pain improved mobility activity analgesia range of motion so there is no need for interventions for the sacroiliac area at this point 07/27/2024 half-way (current) use of opiate analgesic (ICD-10 - Z79.891) 07/27/2024 support staff (current) use of opiate analgesic (ICD-10 - Z79.891) 08/16/2024 Primary osteoarthritis, right shoulder (ICD-10 - M19.011) 08/16/2024 support staff (current) use of opiate analgesic (ICD-10 - Z79.891) Regarding medication management, I checked the prescription monitoring program, it was appropriate, the last urine drug screen test done on 07/27/24 reviewed positive hydromorphone only which is appropriate the patient is reporting that the pharmacy does not have hydromorphone anymore she will continue on morphine sulfate every 8 hours at this point we discussed longer acting morphine in the future she will think about it, the patient is reporting that she stopped taking lorazepam and she will not fill it this month Regarding physical therapy, we will request reports from the physical therapy regarding the patient's treatments Regarding physical therapy, continue lumbar physical therapy exercises Regarding radiological studies, I reviewed the new lumbar MRI that was done on 10/16/22 that revealed multilevel lumbar facet arthropathies starting from L3 down to S1, and 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 root Regarding interventional procedures,for the shoulder the patient is reporting 90% relief of pain in the shoulder after the last injection the patient was able to lift up objects, cook, clean, sleep without pain an MRI was ordered for her and she will see the orthopedic soon for possible shoulder surgery Regarding the lumbar pain the patient reported 90% relief of pain in the lumbar spine after the lumbar radiofrequency ablation she was able to stand, walk, sleep without lumbar pain since the procedure so there is no need for interventions for the lumbar spine at this point I recommended lumbar core exercises Regarding the sacroiliac pain the patient is reporting that the last sacroiliac joint injection done last visit offered the patient 90% relief of pain improved mobility activity analgesia range of motion so there is no need for interventions for the sacroiliac area at this point 09/20/2024 Primary osteoarthritis, right shoulder (ICD-10 - M19.011) 09/20/2024 support staff (current) use of opiate analgesic (ICD-10 - Z79.891) Regarding medication management, I checked the prescription monitoring program, it was appropriate, the last urine drug screen test done on 07/27/24 reviewed positive hydromorphone only which is appropriate the patient is reporting that the pharmacy now has hydromorphone last time she succeeded in getting with so we refilled that medication instead of the morphine sulfate now Regarding physical therapy, we will request reports from the physical therapy regarding the patient's treatments Regarding physical therapy, continue lumbar physical therapy exercises Regarding radiological studies, I reviewed the new lumbar MRI that was done on 10/16/22 that revealed multilevel lumbar facet arthropathies starting from L3 down to S1, and 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 root Regarding interventional procedures,for the shoulder the patient is reporting 90% relief of pain in the shoulder after the last injection the patient was able to lift up objects, cook, clean, sleep without pain an MRI was ordered for her and she will see the orthopedic soon for possible shoulder surgery Regarding the lumbar pain the patient reported 90% relief of pain in the lumbar spine after the lumbar radiofrequency ablation she was able to stand, walk, sleep without lumbar pain since the procedure so there is no need for interventions for the lumbar spine at this point I recommended lumbar core exercises Regarding the sacroiliac pain the patient is reporting that the last sacroiliac joint injection done last visit offered the patient 90% relief of pain improved mobility activity analgesia range of motion for more 3 month the patient was able to sit and sleep without pain the patient continued physical therapy exercises, nonsteroidals, Tylenol since then and especially for the last 3 months lately with no relief she has functional difficulty sitting and sleeping due to the buttock pain over the last month based on that I will offer her a trial of bilateral sacroiliac joint injection to help relieve the pain 10/19/2024 Primary osteoarthritis, right shoulder (ICD-10 - M19.011) 10/19/2024 support staff (current) use of opiate analgesic (ICD-10 - Z79.891) Regarding medication management, I checked the prescription monitoring program, it was appropriate, the last urine drug screen test done on 07/27/24 reviewed positive hydromorphone only which is appropriate the patient is having a pelvic operation for her prolapse on November 05, her surgeon wants her to increase her intake of Dilaudid postoperatively, so I okayed increasing it for 1 week and then she can go back to her old regimen instead of every 4 hours to every 6 hours if needed I ordered a urine drug screen test today to confirm compliance I discussed with the patient weaning her off the benzodiazepines she said that she has started decreasing her intake currently I told her to decrease her intake gradually I gave her a weaning protocol she agrees on the plan she is aware of the black box warning and her psychiatrist is also aware of the problem and he wants to refill her in the future according to her today Regarding physical therapy, we will request reports from the physical therapy regarding the patient's treatments Regarding physical therapy, continue lumbar physical therapy exercises Regarding radiological studies, I reviewed the new lumbar MRI that was done on 10/16/22 that revealed multilevel lumbar facet arthropathies starting from L3 down to S1, and 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 root Regarding interventional procedures,for the shoulder the patient is reporting 90% relief of pain in the shoulder after the last injection the patient was able to lift up objects, cook, clean, sleep without pain an MRI was ordered for her and she will see the orthopedic soon for possible shoulder surgery Regarding the lumbar pain the patient reported 90% relief of pain in the lumbar spine after the lumbar radiofrequency ablation she was able to stand, walk, sleep without lumbar pain since the procedure so there is no need for interventions for the lumbar spine at this point I recommended lumbar core exercises regarding interventional procedures, etc. not recommended at this point since the patient is having surgery on 10/19/2024 support staff (current) use of opiate analgesic (ICD-10 - Z79.891) 11/01/2024 support staff (current) use of opiate analgesic (ICD-10 - Z79.891) 11/16/2024 half-way (current) use of opiate analgesic (ICD-10 - Z79.891) 11/16/2024 half-way (current) use of opiate analgesic (ICD-10 - Z79.891) 11/23/2024 Primary osteoarthritis, right shoulder (ICD-10 - M19.011) 11/23/2024 half-way (current) use of opiate analgesic (ICD-10 - Z79.891) Regarding medication management, I checked the prescription monitoring program, it was appropriate, the last urine drug screen test done on 10/19/2024 reviewed positive hydromorphone and lorazepam which she takes as needed only the patient was told about the black box warning regarding combining benzodiazepines with narcotic pain medications she has been decreasing the intake and in October she received only 60 tablets instead of 75 and the doctor is weaning her slowly off the medication she still has Dilaudid medication so she does not need refills now on the Dilaudid she will call and tell us how much tablets is left and we will refill accordingly to make up for the short number of pills due to her postoperative pain when she was taking it every 4 hours Regarding physical therapy, we will request reports from the physical therapy regarding the patient's treatments Regarding physical therapy, continue lumbar physical therapy exercises Regarding radiological studies, I reviewed the new lumbar MRI that was done on 10/16/22 that revealed multilevel lumbar facet arthropathies starting from L3 down to S1, and 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 root Regarding interventional procedures,for the shoulder the patient is reporting 90% relief of pain in the shoulder after the last injection the patient was able to lift up objects, cook, clean, sleep without pain an MRI was ordered for her and she will see the orthopedic soon for possible shoulder surgery Regarding the lumbar pain the patient reported 90% relief of pain in the lumbar spine after the lumbar radiofrequency ablation she was able to stand, walk, sleep without lumbar pain since the last lumbar radiofrequency ablation procedure done on 05/03/2024 and the relief lasted for more than 6-month she was able to do these tasks, continued lumbar core exercises since then but the pain recurred again this month after the surgery last month in the lumbar spine the pain has been significant she has functional difficulty standing, walking, sleeping due to the lumbar pain again she is requesting repeating the radiofrequency ablation procedure she was found to have positive bilateral lumbar facet loading test on exam negative straight leg raising test pain score is more than VAS of 6 based on that we will offer her repeat lumbar radiofrequency ablation procedure today to help relieve her flareup of pain 12/06/2024 support staff (current) use of opiate analgesic (ICD-10 - Z79.891) 12/20/2024 Primary osteoarthritis, right shoulder (ICD-10 - M19.011) 12/20/2024 half-way (current) use of opiate analgesic (ICD-10 - Z79.891) Regarding medication management, I checked the prescription monitoring program, it was appropriate, the last urine drug screen test done on 10/19/2024 reviewed positive hydromorphone and lorazepam which she takes as needed only the patient was told about the black box warning regarding combining benzodiazepines with narcotic pain medications she promised to start weaning herself off the benzodiazepines, we refilled the patient's Dilaudid today Regarding physical therapy, we will request reports from the physical therapy regarding the patient's treatments Regarding physical therapy, continue lumbar physical therapy exercises Regarding radiological studies, I reviewed the new lumbar MRI that was done on 10/16/22 that revealed multilevel lumbar facet arthropathies starting from L3 down to S1, and 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 root Regarding interventional procedures,for the shoulder the patient is reporting 90% relief of pain in the shoulder after the last injection the patient was able to lift up objects, cook, clean, sleep without pain an MRI was ordered for her and she will see the orthopedic soon for possible shoulder surgery Regarding the lumbar pain the patient reported 90% relief of pain in the lumbar spine after the lumbar radiofrequency ablation she was able to stand, walk, sleep without lumbar pain since the last lumbar radiofrequency ablation procedure done on 11/23/2024 so there is no need for interventional procedures for the lumbar spine at this point I recommended physical therapy exercises 01/24/2025 Primary osteoarthritis, right shoulder (ICD-10 - M19.011) 01/24/2025 half-way (current) use of opiate analgesic (ICD-10 - Z79.891) Regarding medication management, I checked the prescription monitoring program, it was appropriate, the last urine drug screen test done on 10/19/2024 reviewed positive hydromorphone and lorazepam the patient is reporting that she weaned herself off lorazepam she and has not taken it for the last several weeks, her picked up that prescription of lorazepam on 12/30/2024 by mistake with the other medications without looking, I sent a message to the pharmacy not to fill this medicine in the future, I ordered a urine drug screen test, the patient is reporting that she has difficulty filling the medication on time the pharmacies that are aware or with her prescription are present on so I refilled the medicine accordingly Regarding physical therapy, we will request reports from the physical therapy regarding the patient's treatments Regarding physical therapy, continue lumbar physical therapy exercises Regarding radiological studies, I reviewed the new lumbar MRI that was done on 10/16/22 that revealed multilevel lumbar facet arthropathies starting from L3 down to S1, and 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 root Regarding interventional procedures,for the shoulder the patient is reporting 90% relief of pain in the sacroiliac area after the last injection she was able to sit and sleep without pain continued physical therapy exercises, nonsteroidals, Tylenol for the last 6 months but the pain recurred again last week and has been severe she has functional difficulty sitting and sleeping due to the pain pain score is more than VAS of 6 based on that I will offer her repeat bilateral sacroiliac joint injection to help relieve the pain since it was effective in the past 01/24/2025 half-way (current) use of opiate analgesic (ICD-10 - Z79.891) 01/28/2025 support staff (current) use of opiate analgesic (ICD-10 - Z79.891) 02/21/2025 Primary osteoarthritis, right shoulder (ICD-10 - M19.011) 02/21/2025 half-way (current) use of opiate analgesic (ICD-10 - Z79.891) Regarding medication management, I checked the prescription monitoring program, it was appropriate, the last urine drug screen test done on 10/19/2024 reviewed positive hydromorphone and lorazepam the patient is reporting that she weaned herself off lorazepam she and has not taken it for the last 2 weeks we ordered a urine drug screen test to confirm compliance today and we refilled her medications Regarding physical therapy, we will request reports from the physical therapy regarding the patient's treatments Regarding physical therapy, continue lumbar physical therapy exercises Regarding radiological studies, I reviewed the new lumbar MRI that was done on 10/16/22 that revealed multilevel lumbar facet arthropathies starting from L3 down to S1, and 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 root Regarding interventional procedures, the patient is reporting good relief of pain in the buttock areas after the last sacroiliac joint injections the pain is under control with medications so there is no need for interventions at this point 03/21/2025 Primary osteoarthritis, right shoulder (ICD-10 - M19.011) 03/21/2025 half-way (current) use of opiate analgesic (ICD-10 - Z79.891) Regarding medication management, I checked the prescription monitoring program, it was appropriate, the last urine drug screen test done on 02/21/2025 reviewed positive hydromorphone and butalbital negative for lorazepam the patient is reporting that she does not take lorazepam anymore but her picked up the prescription by mistake even though I wrote on the previous prescription not to fill lorazepam she did not take the medication I told her to call her prescriber and psychiatrist to tell them not to refill this medicine in the future Regarding physical therapy, we will request reports from the physical therapy regarding the patient's treatments Regarding physical therapy, continue lumbar physical therapy exercises Regarding radiological studies, I reviewed the new lumbar MRI that was done on 10/16/22 that revealed multilevel lumbar facet arthropathies starting from L3 down to S1, and 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 root Regarding interventional procedures, the patient is reporting good relief of pain in the buttock areas after the last sacroiliac joint injections the pain is under control with medications so there is no need for interventions at this point 03/28/2025 half-way (current) use of opiate analgesic (ICD-10 - Z79.891) 03/21/2025 Sacroiliitis, not elsewhere classified (ICD-10 - M46.1) 02/21/2025 Sacroiliitis, not elsewhere classified (ICD-10 - M46.1) 01/24/2025 Sacroiliitis, not elsewhere classified (ICD-10 - M46.1) 12/20/2024 Sacroiliitis, not elsewhere classified (ICD-10 - M46.1) 11/23/2024 Sacroiliitis, not elsewhere classified (ICD-10 - M46.1) 10/19/2024 Sacroiliitis, not elsewhere classified (ICD-10 - M46.1) 09/20/2024 Sacroiliitis, not elsewhere classified (ICD-10 - M46.1) 08/16/2024 Sacroiliitis, not elsewhere classified (ICD-10 - M46.1) 07/26/2024 Sacroiliitis, not elsewhere classified (ICD-10 - M46.1) 06/29/2024 Sacroiliitis, not elsewhere classified (ICD-10 - M46.1) 05/31/2024 Sacroiliitis, not elsewhere classified (ICD-10 - M46.1) 05/03/2024 Sacroiliitis, not elsewhere classified (ICD-10 - M46.1) 05/03/2024 Spondylosis without myelopathy or radiculopathy, lumbar region (ICD-10 - M47.816) 05/31/2024 Spondylosis without myelopathy or radiculopathy, lumbar region (ICD-10 - M47.816) 06/29/2024 Spondylosis without myelopathy or radiculopathy, lumbar region (ICD-10 - M47.816) 07/26/2024 Spondylosis without myelopathy or radiculopathy, lumbar region (ICD-10 - M47.816) 08/16/2024 Spondylosis without myelopathy or radiculopathy, lumbar region (ICD-10 - M47.816) 09/20/2024 Spondylosis without myelopathy or radiculopathy, lumbar region (ICD-10 - M47.816) 10/19/2024 Spondylosis without myelopathy or radiculopathy, lumbar region (ICD-10 - M47.816) 11/23/2024 Spondylosis without myelopathy or radiculopathy, lumbar region (ICD-10 - M47.816) 12/20/2024 Spondylosis without myelopathy or radiculopathy, lumbar region (ICD-10 - M47.816) 01/24/2025 Spondylosis without myelopathy or radiculopathy, lumbar region (ICD-10 - M47.816) 02/21/2025 Spondylosis without myelopathy or radiculopathy, lumbar region (ICD-10 - M47.816) 03/21/2025 Spondylosis without myelopathy or radiculopathy, lumbar region (ICD-10 - M47.816) Plan Of Treatment Pending Test Test Name Order Date PHENCYCLIDINE (PCP) QUANTITATIVE 022 PHENCYCLIDINE (PCP) QUANTITATIVE 022 PHENCYCLIDINE (PCP) QUANTITATIVE 022 COCAINE QUANTITATIVE 06/17/2022 COCAINE QUANTITATIVE 12/17/2021 COCAINE QUANTITATIVE 11/19/2021 COCAINE QUANTITATIVE 03/24/2023 COCAINE QUANTITATIVE 09/22/2023 COCAINE QUANTITATIVE 02/09/2024 COCAINE QUANTITATIVE 10/19/2024 COCAINE QUANTITATIVE 02/21/2025 OXYCODONE QUANTITATIVE 10/19/2024 OXYCODONE QUANTITATIVE 02/09/2024 OXYCODONE QUANTITATIVE 09/22/2023 OXYCODONE QUANTITATIVE 03/24/2023 OXYCODONE QUANTITATIVE 11/19/2021 OXYCODONE QUANTITATIVE 12/17/2021 OXYCODONE QUANTITATIVE 06/17/2022 OXYCODONE QUANTITATIVE 02/21/2025 AMPHETAMINES QUANTITATIVE 06/17/2022 AMPHETAMINES QUANTITATIVE 12/17/2021 AMPHETAMINES QUANTITATIVE 11/19/2021 BARBITURATES QUANTITATIVE 11/19/2021 BARBITURATES QUANTITATIVE 03/24/2023 BARBITURATES QUANTITATIVE 09/22/2023 BARBITURATES QUANTITATIVE 02/09/2024 BARBITURATES QUANTITATIVE 10/19/2024 BARBITURATES QUANTITATIVE 02/21/2025 METHADONE QUANTITATIVE 02/21/2025 METHADONE QUANTITATIVE 10/19/2024 METHADONE QUANTITATIVE 02/09/2024 METHADONE QUANTITATIVE 09/22/2023 METHADONE QUANTITATIVE 03/24/2023 METHADONE QUANTITATIVE 11/19/2021 METHADONE QUANTITATIVE 12/17/2021 METHADONE QUANTITATIVE 06/17/2022 MDMA (ECSTASY) QUANTITATIVE 06/17/2022 MDMA (ECSTASY) QUANTITATIVE 12/17/2021 MDMA (ECSTASY) QUANTITATIVE 11/19/2021 MDMA (ECSTASY) QUANTITATIVE 03/24/2023 MDMA (ECSTASY) QUANTITATIVE 09/22/2023 MDMA (ECSTASY) QUANTITATIVE 02/09/2024 MDMA (ECSTASY) QUANTITATIVE 02/21/2025 MDMA (ECSTASY) QUANTITATIVE 10/19/2024 6-ACETYLMORPHINE QUANTITATIVE 02/21/2025 6-ACETYLMORPHINE QUANTITATIVE 10/19/2024 6-ACETYLMORPHINE QUANTITATIVE 02/09/2024 6-ACETYLMORPHINE QUANTITATIVE 09/22/2023 TRAMADOL QUANTITATIVE 03/24/2023 TRAMADOL QUANTITATIVE 09/22/2023 TRAMADOL QUANTITATIVE 02/09/2024 TRAMADOL QUANTITATIVE 10/19/2024 TRAMADOL QUANTITATIVE 11/19/2021 TRAMADOL QUANTITATIVE 12/17/2021 TRAMADOL QUANTITATIVE 06/17/2022 TRAMADOL QUANTITATIVE 02/21/2025 FENTANYL QUANTITATIVE 06/17/2022 FENTANYL QUANTITATIVE 12/17/2021 FENTANYL QUANTITATIVE 11/19/2021 FENTANYL QUANTITATIVE 02/21/2025 FENTANYL QUANTITATIVE 02/09/2024 FENTANYL QUANTITATIVE 10/19/2024 FENTANYL QUANTITATIVE 09/22/2023 FENTANYL QUANTITATIVE 03/24/2023 BUPRENORPHINE QUANTITATIVE 03/24/2023 BUPRENORPHINE QUANTITATIVE 09/22/2023 BUPRENORPHINE QUANTITATIVE 02/09/2024 BUPRENORPHINE QUANTITATIVE 10/19/2024 BUPRENORPHINE QUANTITATIVE 02/21/2025 BUPRENORPHINE QUANTITATIVE 11/19/2021 BUPRENORPHINE QUANTITATIVE 12/17/2021 BUPRENORPHINE QUANTITATIVE 06/17/2022 BENZODIAZEPINE QUANTITATIVE 06/17/2022 BENZODIAZEPINE QUANTITATIVE 11/19/2021 BENZODIAZEPINE QUANTITATIVE 12/17/2021 BENZODIAZEPINE QUANTITATIVE 02/21/2025 BENZODIAZEPINE QUANTITATIVE 10/19/2024 BENZODIAZEPINE QUANTITATIVE 02/09/2024 BENZODIAZEPINE QUANTITATIVE 03/24/2023 BENZODIAZEPINE QUANTITATIVE 09/22/2023 OPIATES QUANTITATIVE 03/24/2023 OPIATES QUANTITATIVE 09/22/2023 OPIATES QUANTITATIVE 02/09/2024 OPIATES QUANTITATIVE 10/19/2024 OPIATES QUANTITATIVE 11/19/2021 OPIATES QUANTITATIVE 12/17/2021 OPIATES QUANTITATIVE 06/17/2022 OPIATES QUANTITATIVE 02/21/2025 ANTICONVULSANT QUANTITATIVE 06/17/2022 ANTICONVULSANT QUANTITATIVE 12/17/2021 ANTICONVULSANT QUANTITATIVE 11/19/2021 MUSCLE RELAXANT, QUANTITATIVE 10/19/2024 MUSCLE RELAXANT, QUANTITATIVE 02/09/2024 MUSCLE RELAXANT, QUANTITATIVE 09/22/2023 MUSCLE RELAXANT, QUANTITATIVE 03/24/2023 MUSCLE RELAXANT, QUANTITATIVE 02/21/2025 CATHINONES(BATH SALT) QUANTITATIVE 11/19 CATHINONES(BATH SALT) QUANTITATIVE 12/17 CATHINONES(BATH SALT) QUANTITATIVE 06/17 SLEEP AID QUANTITATIVE 06/17/2022 SLEEP AID QUANTITATIVE 12/17/2021 SLEEP AID QUANTITATIVE 11/19/2021 METHYLPHENIDATE 11/19/2021 METHYLPHENIDATE 12/17/2021 METHYLPHENIDATE 06/17/2022 TAPENTADOL PANEL 06/17/2022 TAPENTADOL PANEL 12/17/2021 TAPENTADOL PANEL 11/19/2021 MERPERIDINE PANEL 11/19/2021 MERPERIDINE PANEL 12/17/2021 MERPERIDINE PANEL 06/17/2022 AMPHETAMINES, QUANTISAL SWAB 10/22/2021 BENZODIAZEPINES, QUANTISAL SWAB 10/22/19 6-ACETYLMORPHINE, QUANTISAL SWAB 022 MDMA (ECSTASY), QUANTISAL SWAB PHENCYCLIDINE(PCP), QUANTISAL SWAB 10/22 OPIATES, QUANTISAL SWAB 10/22/2021 OXYCODONE, QUANTISAL SWAB 10/22/2021 SYNTHETIC OPIOIDS/QUANTISAL SWAB 022 COCAINE, QUANTISAL SWAB 10/22/2021 Amphetamine 03/24/2023 Amphetamine 09/22/2023 Amphetamine 02/09/2024 Amphetamine 10/19/2024 Amphetamine 02/21/2025 CREATININE 02/21/2025 CREATININE 10/19/2024 CREATININE 02/09/2024 CREATININE 09/22/2023 CREATININE 06/17/2022 CREATININE 11/19/2021 CREATININE 12/17/2021 Carisoprodol 11/19/2021 Carisoprodol 06/17/2022 Carisoprodol 12/17/2021 LAB REPORT 12/17/2021 LAB REPORT 06/17/2022 LAB REPORT 11/19/2021 LAB REPORT 10/22/2021 LAB REPORT 09/22/2023 LAB REPORT 03/24/2023 LAB REPORT 02/09/2024 LAB REPORT 10/19/2024 LAB REPORT 02/21/2025 Carisoprodol 10/22/2021 physical therapy 07/09/2022 physical therapy 10/10/2022 physical therapy 04/09/2023 Next Appt Details Provider Name:GHULAM JIMENEZ, 04/11/2025 09:00:00 AM, [address] [place] [address], [phone], Insurance Providers Payer Name Payer Address Payer Phone Subscriber Number Group Number Insured Name Patient Relationship to Insured Coverage Start Date Coverage End Date [place] [address] [place] [phone] [id number] CÉSAR CARNES Self - patient is the insured 3 [employer] of [place] [address] [place] [phone] [id number] CÉSAR CARNES Self - patient is the insured Medical (General) History Medical History History ICD Code bipolar disorder hyperlipidemia central pain syndrome lumbago with sciatica, right side migraines opioid dependence osteoarthritis appendix removal Surgical History Surgery Date(Month/Year) lumbar spine surgery 08/07/2016 partial hysterectomy 1992 1983 bladder surgery 1991 cerebral bleed after surgery 1992 right ankle surgeries 5x neuro stimulator foot sugery 07/12/2020 appendectomy 09/2020 endoscopy and esophageal stretching 01/07 endoscopy march 10 2022 cataract surgeries on both eyes January 2024 Hospitalization History Reason Date(Month/Year) endoscopy 05/29/23 back surgery 12/19/2022 COLONOSCOPY 11/15/2021 ER VISIT FOR RIGHT SIDE PAIN 11/15/2021 er and hospital stay for appendicitis/ a ppendectomy 09/2020 er x2 for fluids secondary to diarrhea 1 10/2019 colonoscopy and endoscopy 08/31 foot surgery one day stay 07/12/2020 er for left foot pain and lidocaine infu sions 04/2020 er x3 for back back 03/2020
--- OUTSIDE RECORDS SUMMARY | 2025-04-08 12:24 | XMS_ITS | Clinical Summary ---
Author Organization [facility] Address [address] [place] [address] Phone Care Team Providers Care Stenciler Name Role Phone Refugio Patel MD Primary Care Provider [phone] Allergies Active Allergy Reactions Criticality Noted Date Comments Sumatriptan Headache 08/12/2024 Medications codeine/butalbita l/ASA/caffein (CODEINE-BUTALBIT AL-ASA-CAFF ORAL) Take by mouth 4 times daily as needed. 2 tabs q4hr prn for headache - Oral Active diflunisaL (DOLOBID) 500 mg tablet Take 1 Tab by mouth 2 times daily. With food - Oral Active prochlorperazine (COMPAZINE) [address] 25 mg rectally every 12 hours as needed. - Rectal Active silver sulfADIAZINE (Silvadene) 1 % cream Apply topically 1 (one) time each day. 50 g 5 12/01/19 26 Active diclofenac (Voltaren Arthritis Pain) 1 % topical gel Apply 4 g topically 2 (two) times a day. 240 g 1 5 04/25/20 25 Active Encounters Date Type Department Care Team Description 02/24/2025 10:30 AM EDT Office Visit Orthopedic Surgery [facility] [address] [phone] Rachid eBe, DPM Neuritis (Primary Dx); Ingrowing nail; Dermatophytosis of nail; Primary osteoarthritis of both feet from Last 3 Months Social History Tobacco Use Types Packs/Day Years Used Date Smoking Tobacco: Never Assessed Comments Unknown Sex and Gender Information Value Date Recorded Sex Assigned at Not on file Legal Sex Female 8:02 PM EDT Gender Identity Not on file Sexual Orientation Not on file Last Filed Vital Signs Vital Sign Reading Time Taken Comments Blood Pressure - - Pulse - - Temperature - - Respiratory Rate - - Oxygen Saturation - - Inhaled Oxygen Concentration - - Weight 62.6 kg (138 lb 0.1 oz) 02/24/2025 10:23 AM EDT Height 162.6 cm (5' 4.02 ) 02/24/2025 10:23 AM E DT Body Mass Index 23.68 02/24/2025 10:23 AM EDT Plan of Treatment Upcoming Encounters Date Type Department Care Team (Late st Contact Info) Description 05/05/2025 9:15 AM EDT Office Visit Orthopedic Surgery - [place] [address] [id number] Rachid Bee, DPM [address] [id number] Health Maintenance Due Date Last Done Comments Breast Cancer Screening 1955 Zoster Vaccines (1 of 2) 12/25/2007 COVID-19 Vaccine ( season) 2024 09/16/2022, 09/17/2021, 02/11/2021, Additional history exists Cholesterol Screening (Lipid Panel) 08/03/2024 02/04/2019 Colorectal Cancer Screening: Colonoscopy 08/03/2024 Falls Risk Assessment 08/03/2024 Hepatitis C Screening 08/03/2024 Medicare Annual Wellness Visit 08/03/2024 Osteoporosis Screening (Bone Density Screening) 08/03/2024 Social Influencers of Health Screening 08/03/2024 Depression Screening 09/08/2024 Influenza Vaccine (#1) 2025 , 05/16/2023, 07/03/2022, Additional history exists DTaP,Tdap,and Td Vaccines (3 - Td or Tdap) 06/12/2031 06/12/2021, 12/18/2015 Pneumococcal Vaccine: 50+ Years Completed 12/13/2022, 11/03/2014, 11/03/2014 RSV Immunization Adult Patients Completed 05/16/2023 HIB Vaccines Aged Out No longer eligi ble based on patient's age to complete this topic HPV Vaccines Aged Out No longer eligi ble based on patient's age to complete this topic Hepatitis A Vaccines Aged Out No long er eligible based on patient's age to complete this topic Hepatitis B Vaccines Aged Out No long er eligible based on patient's age to complete this topic IPV Vaccines Aged Out No longer eligi ble based on patient's age to complete this topic MMR Vaccines Aged Out No longer eligi ble based on patient's age to complete this topic Meningococcal ACWY Vaccine Aged Out N o longer eligible based on patient's age to complete this topic Meningococcal B Vaccine Aged Out No l onger eligible based on patient's age to complete this topic RSV Immunization Patients Under 20 months Aged Out No longer eligible based on patient's age to complete this topic Varicella Vaccines Aged Out No longer eligible based on patient's age to complete this topic Insurance MEDICARE MEDICAID - [place] Care Teams Stenciler Relationship Specialty Start Date End Date Refugio Patel MD [facility] [address] [place] [address] PCP - General 06/17/24
--- OUTSIDE RECORDS SUMMARY | 2025-04-08 12:24 | XMS_ITS | Encounter Summary ---
Author Organization [facility] Address [address] [address] Phone Care Team Providers Care Mental Health Program Specialist Name Role Phone Patt Hawkins END POLISHER Unavailable [phone] Patt Hawkins END POLISHER Unavailable [phone] Refugio Patel MD Primary Care Provider + Encounter Details Date Type Department Care Team (Latest Contact Info) Description 10/02/2022 Transcribe Orders Virtual Department [address] [place] [address] Iveth Rincon, END POLISHER [facility] [address] [place], [place] [id number] Back pain, unspecified back location, unspecified back pain laterality, unspecified chronicity (Primary Dx) Social History Tobacco Use Types Packs/Day Years Used Date Smoking Tobacco: Former Smokeless Tobacco: Current Comments:5-6 cigar Alcohol Use Standard Drinks/Week Comments Not Currently 0 (1 standard drink = 0.6 oz pur e alcohol) occasional beer/rare Comments No Sex and Gender Information Value Date Recorded Sex Assigned at Female 05/07/2019 9:17 PM EDT Legal Sex Female 7:00 PM EST Gender Identity Female 05/07/2019 9:17 PM EDT Sexual Orientation Straight 05/07/2019 9: 17 PM EDT Occupation Industry Job Start Date Job End Date 2009 Not on file Not on file Not on file documented as of this encounter Plan of Treatment Not on file documented as of this encounter Visit Diagnoses Diagnosis Back pain, unspecified back location, unspecified back pain laterality, unspecified chronicity- Primary documented in this encounter Care Teams Mental Health Program Specialist Relationship Specialty Start Date End Date Refugio Patel MD [address] [place] [id number] PCP - General Family Medicine 09/30/18 Patt Hawkins NP Family Medicine 09/12/17 Patt Hawkins NP Family Medicine 09/12/17 documented as of this encounter Additional Source Comments The information contained in this document represents components of the legal health record. It is not the complete legal health record.[facility]
[2025-04-08 14:22] LABS: Glucose, Whole Blood 70 mg/dL (60-115)
--- NOTE | 2025-04-08 16:40 | PC.NURSE ---
patients family was here for an extended period of time awaiting the arrival of the patients sons that were driving back from [place] several hours away. Patient was an ME case therefore a staff member was present in the room with family for the duration.
== END 2025-04-08 18:00 | disposition expired ==
PROVIDERS: Emergency Provider Emergency Medicine Emergency Medical Services; PCP Family Medicine
DX: I46.9 Cardiac arrest, cause unspecified (principal); F41.9 Anxiety disorder, unspecified; M19.90 Unspecified osteoarthritis, unspecified site; M54.9 Dorsalgia, unspecified; F60.3 Borderline personality disorder; K59.00 Constipation, unspecified; G43.909 Migraine, unspecified, not intractable, without status migrainosus; F11.90 Opioid use, unspecified, uncomplicated; Z79.899 Other long term (current) drug therapy
CPT/HCPCS: 82947; 96374; 99282; 99291; J0168